=== PATIENT | male | born 1960 | race Caucasian/White ===

== ENCOUNTER 2017-01-18 20:23 | Emergency (ER) | payer MEDICARE, OTHER ==
[2017-01-18] MEDS ORDERED: SODIUM CHLORIDE 0.9% 1,000 ML with MVI, ADULT NO.4 WITH VIT K 10 ML, THIAMINE 100 MG, F... IV ONE ×4 (20:43)
[2017-01-18 21:08] LABS: Aty Lym Flag Marked; CH 33.6; CHCM 33.8; HCT 42.7 % (39.0-53.0); HDW 2.25; MCH 32.7 pg (25.0-35.0); MCHC 32.8 g/dL (31.0-37.0); MCV 99.6 fL (80.0-100.0); Mean Platelet Volume 6.8; RBC 4.29 m/uL (4.30-5.90); RDW 12.8 % (11.5-15.5); WBC (Perox) 4.99
[2017-01-18 21:21] LABS: ALT 26 U/L (21-72); AST 24 U/L (17-59); Alkaline Phosphatase 70 U/L (38-126); Anion Gap 12 mmol/L; Blood Urea Nitrogen 13 mg/dL (9-20); Calcium 9.1 mg/dL (8.4-10.2); Carbon Dioxide 27 mmol/L (22-30); Chloride 106 mmol/L (98-107); Glucose 94 mg/dL (74-99); Magnesium 1.8 mg/dL (1.6-2.3); Non-African American GFR(MDRD) >60 (>60 ml/min/1.73 sqM); Potassium 3.5 mmol/L (3.5-5.1); Sodium 145 mmol/L (137-145); Total Bilirubin 0.8 mg/dL (0.2-1.3); Total Protein 7.2 g/dL (6.3-8.2)
[2017-01-18 21:36] LABS: Add Differential Manual Differential
--- NOTE | 2017-01-18 21:36 | ED ---
Psych HPI - General Chief Complaint: Psychiatric Symptoms Stated Complaint: Mental Health Time Seen by Provider: 01/18/17 20:28 Source: patient, RN notes reviewed Mode of arrival: ambulatory Limitations: no limitations - History of Present Illness Initial Comments: 57-year-old male presents emergency Department with police for psychiatric evaluation. Patient called the crisis line because he is depressed. Patient states she was admitted in October for depression suicidal thoughts at that time. Patient states that he does not want to get to that point. Patient states in the past she started about shooting himself or stab himself states he has not had any current thoughts that. Patient states he drinks alcohol on a regular basis. Patient denies any illicit drug use. Denies any physical complaints including abdominal pain, nausea, vomiting, chest pain or shortness breath. - Related Data Home Medications Medication Instructions Recorded Confirmed DULoxetine HCL [Cymbalta] 60 mg PO DAILY 10/25/16 10/25/16 Levothyroxine Sodium [Synthroid] 50 mcg PO DAILY 10/25/16 10/25/16 [place] Carbonate 600 mg PO QAM 10/25/16 10/25/16 Mirtazapine [Remeron] 15 mg PO HS 10/25/16 10/25/16 Previous Rx's Medication Instructions Recorded Disulfiram [Antabuse] 250 mg PO HS #30 tab 10/31/16 Nicotine 21Mg/24Hr Patch [Habitrol] 1 patch TRANSDERM DAILY #30 patch 10/31/16 Allergies Allergy/AdvReac Type Severity Reaction Status Date / Time ziprasidone HCl [From Geodon] Allergy Unknown Unknown Verified 01/18/17 20:37 ziprasidone mesylate AdvReac Unknown Verified 01/18/17 20:37 [From Maria Fernanda] Review of Systems ROS Statement: Those systems with pertinent positive or pertinent negative responses have been documented in the HPI. ROS Other: All systems not noted in ROS Statement are negative. Past Medical History Past Medical History: No Reported History Additional Past Medical History / Comment(s): alcohol abuse History of Any Multi-Drug Resistant Organisms: None Reported Past Surgical History: No Surgical Hx Reported Additional Past Surgical History / Comment(s): eyelid sx Past Anesthesia/Blood Transfusion Reactions: No Reported Reaction Past Psychological History: Bipolar Smoking Status: Heavy tobacco smoker Past Alcohol Use History: Daily, Heavy Additional Past Alcohol Use History / Comment(s): drinks 1/5 th daily Past Drug Use History: None Reported General Exam Limitations: no limitations General appearance: alert, in no apparent distress Head exam: Present: atraumatic, normocephalic, normal inspection Eye exam: Present: normal appearance, PERRL, EOMI. Absent: scleral icterus, conjunctival injection, periorbital swelling ENT exam: Present: normal exam, mucous membranes moist, TM's normal bilaterally Neck exam: Present: normal inspection, full ROM. Absent: tenderness, meningismus, lymphadenopathy Respiratory exam: Present: normal lung sounds bilaterally. Absent: respiratory distress, wheezes, rales, rhonchi, stridor Cardiovascular Exam: Present: regular rate, normal rhythm, normal heart sounds. Absent: systolic murmur, diastolic murmur, rubs, gallop, clicks GI/Abdominal exam: Present: soft, normal bowel sounds. Absent: distended, tenderness, guarding, rebound, rigid Neurological exam: Present: alert, oriented X3, CN II-XII intact Psychiatric exam: Present: depressed Skin exam: Present: warm, dry, intact, normal color. Absent: rash Course Vital Signs 01/18/17 01/19/17 20:32 02:20 Temperature 97.8 F 97.1 F L Pulse Rate 91 71 Respiratory 18 18 Rate Blood Pressure 121/59 108/68 O2 Sat by Pulse 98 98 Oximetry Medical Decision Making - Medical Decision Making Patient was evaluated by EPS. Patient will be discharged at this time. Patient is sober. - Lab Data Result diagrams: 01/18/17 20:54 01/18/17 20:54 Lab Results 01/18/17 01/18/17 01/18/17 Range/Units 20:54 20:54 20:54 WBC 5.0 (3.8-10.6) k/uL RBC 4.29 L (4.30-5.90) m/uL Hgb 14.0 (13.0-17.5) gm/dL Hct 42.7 (39.0-53.0) % MCV 99.6 (80.0-100.0) fL MCH 32.7 (25.0-35.0) pg MCHC 32.8 (31.0-37.0) g/dL RDW 12.8 (11.5-15.5) % Plt Count 247 (150-450) k/uL Neutrophils % (Manual) 46.0 % Lymphocytes % (Manual) 42.0 % Monocytes % (Manual) 10.0 % Eosinophils % (Manual) 2.0 % Neutrophils # (Manual) 2.3 (1.3-7.7) k/uL Lymphocytes # (Manual) 2.1 (1.0-4.8) k/uL Monocytes # (Manual) 0.5 (0-1.0) k/uL Eosinophils # (Manual) 0.1 (0-0.7) k/uL Nucleated RBCs 0 (0-0) /100 WBC Manual Slide Review Performed Large Platelets Present Polychromasia Present Sodium 145 (137-145) mmol/L Potassium 3.5 (3.5-5.1) mmol/L Chloride 106 (98-107) mmol/L Carbon Dioxide 27 (22-30) mmol/L Anion Gap 12 mmol/L BUN 13 (9-20) mg/dL Creatinine 0.79 (0.66-1.25) mg/dL Est GFR (MDRD) Af Amer >60 (>60 ml/min/1.73 sqM) Est GFR (MDRD) Non-Af >60 (>60 ml/min/1.73 sqM) Glucose 94 (74-99) mg/dL Calcium 9.1 (8.4-10.2) mg/dL Magnesium 1.8 (1.6-2.3) mg/dL Total Bilirubin 0.8 (0.2-1.3) mg/dL AST 24 (17-59) U/L ALT 26 (21-72) U/L Alkaline Phosphatase 70 (38-126) U/L Total Protein 7.2 (6.3-8.2) g/dL Albumin 4.2 (3.5-5.0) g/dL Lipase 303 H (23-300) U/L Urine Opiates Screen Not Detected (NotDetected) Ur Oxycodone Screen Not Detected (NotDetected) Urine Methadone Screen Not Detected (NotDetected) Ur Propoxyphene Screen Not Detected (NotDetected) Ur Barbiturates Screen Not Detected (NotDetected) U Tricyclic Antidepress Not Detected (NotDetected) Ur Phencyclidine Scrn Not Detected (NotDetected) Ur Amphetamines Screen Not Detected (NotDetected) U Methamphetamines Scrn Not Detected (NotDetected) U Benzodiazepines Scrn Not Detected (NotDetected) Urine Cocaine Screen Not Detected (NotDetected) U Marijuana (THC) Screen Not Detected (NotDetected) Disposition Clinical Impression: Alcohol intoxication, Depression Disposition: HOME SELF-CARE Condition: Stable Instructions: Alcohol Intoxication (ED) Additional Instructions: Please return to the Emergency Department if symptoms worsen or any other concerns. Time of Disposition: 04:19
[2017-01-18 21:39] LABS: Manual Review Performed; Nucleated Red Blood Cells 0 /100 WBC (0-0); Total Cells Counted 100
[2017-01-18 21:40] LABS: Large Platelets Present; Polychromasia Present
[2017-01-19 02:21] VITALS: PULSE 71; TEMP 97.1
[2017-01-19 04:29] VITALS: BP 104/60; RESP 16
== END 2017-01-19 04:29 | disposition home or self-care (01) ==
LOC: EC 20:23
DX: F31.9 Bipolar disorder, unspecified (principal); F10.129 Alcohol abuse with intoxication, unspecified; F17.200 Nicotine dependence, unspecified, uncomplicated; Z79.899 Other long term (current) drug therapy; Z88.8 Allergy status to other drugs, medicaments and biological substances
CPT/HCPCS: 82075; 36415; 80053; 83690; 83735; 85025; 80306; 99284; 96365; 96366 ×3; J3411

== ENCOUNTER 2017-02-25 16:29 | Emergency (ER) | payer MEDICARE, OTHER ==
[2017-02-25 16:41] VITALS: TEMP 96.8
[2017-02-25] MEDS ORDERED: THIAMINE 100 MG/ML 2 ML VIAL IVP STA (16:52)
[2017-02-25] MEDS ORDERED: SODIUM CHLORIDE 0.9% 1,000 ML IV ONE (16:54)
[2017-02-25] MEDS ORDERED: DEXTROSE 50%-WATER 50 ML SYRINGE IVP STA (16:57)
[2017-02-25 17:00] LABS: Glucose,Whole Blood 105 mg/dL (75-99)
--- NOTE | 2017-02-25 17:26 | ED ---
Altered Mental Status HPI - General Source: EMS Mode of arrival: EMS - History of Present Illness MD Complaint: altered mental status -: unknown Context: alcohol abuse <Arpit Evans - Last Filed: 02/25/17 18:31> <Semaj Corona - Last Filed: 02/26/17 02:15> - General Chief Complaint: Recheck/Abnormal Lab/Rx Stated Complaint: unresponsive Time Seen by Provider: 02/25/17 16:45 - History of Present Illness Initial Comments: This patient is a 57-year-old man brought by EMS to be evaluated after he was found apparently lying at the side of a public road. The patient is not cooperative with the history, he is not speaking with me, but he did speak with nurse's. (Arpit Evans) - Related Data Home Medications Medication Instructions Recorded Confirmed DULoxetine HCL [Cymbalta] 60 mg PO DAILY 10/25/16 02/25/17 Levothyroxine Sodium [Synthroid] 50 mcg PO DAILY 10/25/16 02/25/17 [place] Carbonate 600 mg PO QAM 10/25/16 02/25/17 Mirtazapine [Remeron] 15 mg PO HS 10/25/16 02/25/17 Allergies Allergy/AdvReac Type Severity Reaction Status Date / Time ziprasidone HCl [From Geodon] Allergy Unknown Unknown Verified 02/25/17 16:54 ziprasidone mesylate AdvReac Unknown Verified 02/25/17 16:54 [From Geodon] Review of Systems ROS Other: All systems not noted in ROS Statement are negative. Limitations: ROS unobtainable due to patients medical condition <Arpit Evasn - Last Filed: 02/25/17 18:31> ROS Other: All systems not noted in ROS Statement are negative. <Semaj Corona - Last Filed: 02/26/17 02:15> ROS Statement: Those systems with pertinent positive or pertinent negative responses have been documented in the HPI. Past Medical History Past Medical History: No Reported History Additional Past Medical History / Comment(s): alcohol abuse History of Any Multi-Drug Resistant Organisms: None Reported Past Surgical History: No Surgical Hx Reported Additional Past Surgical History / Comment(s): eyelid sx Past Anesthesia/Blood Transfusion Reactions: No Reported Reaction Past Psychological History: Bipolar Smoking Status: Heavy tobacco smoker Past Alcohol Use History: Daily, Heavy Additional Past Alcohol Use History / Comment(s): drinks 1/5 th daily Past Drug Use History: None Reported <Arpit Evans - Last Filed: 02/25/17 18:31> General Exam Limitations: altered mental status General appearance: alert, appears intoxicated Head exam: Present: atraumatic, normocephalic Eye exam: Present: normal appearance, PERRL, EOMI. Absent: scleral icterus, conjunctival injection ENT exam: Present: mucous membranes dry Neck exam: Present: full ROM Respiratory exam: Present: normal lung sounds bilaterally. Absent: respiratory distress, wheezes, rales, rhonchi, stridor, chest wall tenderness Cardiovascular Exam: Present: regular rate, normal rhythm, normal heart sounds. Absent: systolic murmur, diastolic murmur, rubs, gallop GI/Abdominal exam: Present: soft. Absent: distended, tenderness, guarding, rebound, mass Extremities exam: Present: normal inspection, normal capillary refill. Absent: pedal edema, calf tenderness Back exam: Present: normal inspection. Absent: CVA tenderness (R), CVA tenderness (L), vertebral tenderness Neurological exam: Present: alert. Absent: motor sensory deficit Skin exam: Present: warm, dry, intact, normal color. Absent: rash <Arpit Evans - Last Filed: 02/25/17 18:31> Medical Decision Making - Lab Data Result diagrams: 02/25/17 15:15 02/25/17 15:15 - EKG Data -: EKG Interpreted by [facility] EKG shows normal: sinus rhythm, axis (Normal), intervals (Normal), QRS complexes (Normal), ST-T waves (Normal) Rate: normal (Rate 82 bpm) Interpretation: normal EKG <Arpit Evans - Last Filed: 02/25/17 18:31> - Lab Data Result diagrams: 02/25/17 15:15 02/25/17 15:15 <Semaj Corona - Last Filed: 02/26/17 02:15> - Medical Decision Making EPS came down and evaluated the patient and the patient did contract for safety and they determined that the patient could go home. (Semaj Corona) - Lab Data Lab Results 02/25/17 02/25/17 02/25/17 Range/Units 15:15 15:15 16:56 WBC 8.6 (3.8-10.6) k/uL RBC 4.11 L (4.30-5.90) m/uL Hgb 14.2 (13.0-17.5) gm/dL Hct 42.7 (39.0-53.0) % MCV 104.0 H (80.0-100.0) fL MCH 34.7 (25.0-35.0) pg MCHC 33.3 (31.0-37.0) g/dL RDW 13.7 (11.5-15.5) % Plt Count 264 (150-450) k/uL Neutrophils % (Manual) 74.0 % Lymphocytes % (Manual) 17.0 % Monocytes % (Manual) 7.0 % Eosinophils % (Manual) 2.0 % Neutrophils # (Manual) 6.4 (1.3-7.7) k/uL Lymphocytes # (Manual) 1.5 (1.0-4.8) k/uL Monocytes # (Manual) 0.6 (0-1.0) k/uL Eosinophils # (Manual) 0.2 (0-0.7) k/uL Nucleated RBCs 0 (0-0) /100 WBC Polychromasia Present Macrocytosis Slight Sodium 143 (137-145) mmol/L Potassium 4.0 (3.5-5.1) mmol/L Chloride 107 (98-107) mmol/L Carbon Dioxide 24 (22-30) mmol/L Anion Gap 12 mmol/L BUN 15 (9-20) mg/dL Creatinine 0.79 (0.66-1.25) mg/dL Est GFR (MDRD) Af Amer >60 (>60 ml/min/1.73 sqM) Est GFR (MDRD) Non-Af >60 (>60 ml/min/1.73 sqM) Glucose 162 H (74-99) mg/dL POC Glucose (mg/dL) 105 H (75-99) mg/dL POC Glu Buckle Sorter ID Alpa High Calcium 8.6 (8.4-10.2) mg/dL Total Bilirubin 0.5 (0.2-1.3) mg/dL AST 29 (17-59) U/L ALT 34 (21-72) U/L Alkaline Phosphatase 95 (38-126) U/L Total Protein 6.7 (6.3-8.2) g/dL Albumin 3.9 (3.5-5.0) g/dL Urine Opiates Screen (NotDetected) Ur Oxycodone Screen (NotDetected) Urine Methadone Screen (NotDetected) Ur Propoxyphene Screen (NotDetected) Ur Barbiturates Screen (NotDetected) U Tricyclic Antidepress (NotDetected) Ur Phencyclidine Scrn (NotDetected) Ur Amphetamines Screen (NotDetected) U Methamphetamines Scrn (NotDetected) U Benzodiazepines Scrn (NotDetected) Urine Cocaine Screen (NotDetected) U Marijuana (THC) Screen (NotDetected) Serum Alcohol 242 mg/dL 02/25/17 02/25/17 02/25/17 Range/Units 17:48 19:21 19:46 WBC (3.8-10.6) k/uL RBC (4.30-5.90) m/uL Hgb (13.0-17.5) gm/dL Hct (39.0-53.0) % MCV (80.0-100.0) fL MCH (25.0-35.0) pg MCHC (31.0-37.0) g/dL RDW (11.5-15.5) % Plt Count (150-450) k/uL Neutrophils % (Manual) % Lymphocytes % (Manual) % Monocytes % (Manual) % Eosinophils % (Manual) % Neutrophils # (Manual) (1.3-7.7) k/uL Lymphocytes # (Manual) (1.0-4.8) k/uL Monocytes # (Manual) (0-1.0) k/uL Eosinophils # (Manual) (0-0.7) k/uL Nucleated RBCs (0-0) /100 WBC Polychromasia Macrocytosis Sodium (137-145) mmol/L Potassium (3.5-5.1) mmol/L Chloride (98-107) mmol/L Carbon Dioxide (22-30) mmol/L Anion Gap mmol/L BUN (9-20) mg/dL Creatinine (0.66-1.25) mg/dL Est GFR (MDRD) Af Amer (>60 ml/min/1.73 sqM) Est GFR (MDRD) Non-Af (>60 ml/min/1.73 sqM) Glucose (74-99) mg/dL POC Glucose (mg/dL) 114 H 81 (75-99) mg/dL POC Glu Buckle Sorter ID Alesha Stark, Alesha Calcium (8.4-10.2) mg/dL Total Bilirubin (0.2-1.3) mg/dL AST (17-59) U/L ALT (21-72) U/L Alkaline Phosphatase (38-126) U/L Total Protein (6.3-8.2) g/dL Albumin (3.5-5.0) g/dL Urine Opiates Screen Not Detected (NotDetected) Ur Oxycodone Screen Not Detected (NotDetected) Urine Methadone Screen Not Detected (NotDetected) Ur Propoxyphene Screen Not Detected (NotDetected) Ur Barbiturates Screen Not Detected (NotDetected) U Tricyclic Antidepress Not Detected (NotDetected) Ur Phencyclidine Scrn Not Detected (NotDetected) Ur Amphetamines Screen Not Detected (NotDetected) U Methamphetamines Scrn Not Detected (NotDetected) U Benzodiazepines Scrn Not Detected (NotDetected) Urine Cocaine Screen Not Detected (NotDetected) U Marijuana (THC) Screen Not Detected (NotDetected) Serum Alcohol mg/dL Disposition <Arpit Evans - Last Filed: 02/25/17 18:31> Time of Disposition: 02:14 <Semaj Corona - Last Filed: 02/26/17 02:15> Clinical Impression: Alcohol intoxication, Situational depression Disposition: HOME SELF-CARE Condition: Good Instructions: Depression (ED), Alcohol Intoxication (ED) Referrals: Deshaun Velazquez MD [Primary Care Provider] - 1-2 days
[2017-02-25 17:34] LABS: ALT 34 U/L (21-72); AST 29 U/L (17-59); Alkaline Phosphatase 95 U/L (38-126); Anion Gap 12 mmol/L; Blood Urea Nitrogen 15 mg/dL (9-20); Calcium 8.6 mg/dL (8.4-10.2); Carbon Dioxide 24 mmol/L (22-30); Chloride 107 mmol/L (98-107); Glucose 162 mg/dL (74-99); Non-African American GFR(MDRD) >60 (>60 ml/min/1.73 sqM); Sodium 143 mmol/L (137-145); Total Bilirubin 0.5 mg/dL (0.2-1.3); Total Protein 6.7 g/dL (6.3-8.2)
[2017-02-25 17:40] LABS: Aty Lym Flag Marked; CH 33.9; CHCM 32.7; HCT 42.7 % (39.0-53.0); HDW 2.33; HGB 14.2 gm/dL (13.0-17.5); MCH 34.7 pg (25.0-35.0); MCHC 33.3 g/dL (31.0-37.0); Macrocytosis Slight; RBC 4.11 m/uL (4.30-5.90); RDW 13.7 % (11.5-15.5); WBC 8.6 k/uL (3.8-10.6); WBC (Perox) 8.72
[2017-02-25 17:42] LABS: Alcohol 242 mg/dL
[2017-02-25 17:49] LABS: Glucose,Whole Blood 114 mg/dL (75-99)
--- NOTE | 2017-02-25 17:49 | CT ---
EXAMINATION TYPE: CT brain wo con DATE OF EXAM: 02/25/2017 5:39 PM HISTORY: Unresponsive, hypoglycemia. CT DLP: 1144.0 mGycm. Automated Exposure Control for Dose Reduction was Utilized. TECHNIQUE: CT scan of the head is performed without contrast. COMPARISON: CT brain April 21, 2011. FINDINGS: There is no acute intracranial hemorrhage or midline shift identified. Ventricles and sul ci are within normal limits in size. The globes are intact and the visualized sinuses are clear. S oft tissue density bilateral external auditory canals is felt to reflect cerumen and is similar to pr ior exam. IMPRESSION: No acute intracranial hemorrhage or midline shift. No significant change from prior.
[2017-02-25 17:54] LABS: Add Differential Manual Differential
[2017-02-25 17:55] LABS: Nucleated Red Blood Cells 0 /100 WBC (0-0); Polychromasia Present; Total Cells Counted 100
[2017-02-25 19:23] LABS: Glucose,Whole Blood 81 mg/dL (75-99)
[2017-02-26 02:29] VITALS: BP 106/55; PULSE 74; RESP 16
[2017-02-26 07:19] LABS: Glucose,Whole Blood 34 mg/dL (75-99)
== END 2017-02-26 02:29 | disposition home or self-care (01) ==
LOC: EC 16:29
DX: F43.21 Adjustment disorder with depressed mood (principal); F10.129 Alcohol abuse with intoxication, unspecified; F31.9 Bipolar disorder, unspecified; F17.200 Nicotine dependence, unspecified, uncomplicated; Z79.899 Other long term (current) drug therapy; Z88.8 Allergy status to other drugs, medicaments and biological substances
CPT/HCPCS: 99285; 96374; 96375; 96361 ×2; 36415; 93005; 80053; 85025; 80306; 80320; 70450; J3411; 99284

== ENCOUNTER 2018-01-31 21:37 | Emergency (ER) | payer MEDICARE, OTHER ==
[2018-01-31] MEDS ORDERED: SODIUM CHLORIDE 0.9% 1,000 ML IV ONE (22:21)
[2018-01-31 22:26] VITALS: RESP 18
[2018-01-31 22:35] LABS: Alcohol 197 mg/dL; Anion Gap 13 mmol/L; Blood Urea Nitrogen 13 mg/dL (9-20); Calcium 8.9 mg/dL (8.4-10.2); Carbon Dioxide 28 mmol/L (22-30); Chloride 106 mmol/L (98-107); Glucose 86 mg/dL (74-99); Potassium 3.8 mmol/L (3.5-5.1); Sodium 147 mmol/L (137-145)
[2018-01-31 22:46] LABS: HCT 41.5 % (39.0-53.0); HGB 13.9 gm/dL (13.0-17.5); MCH 34.1 pg (25.0-35.0); MCHC 33.5 g/dL (31.0-37.0); MCV 101.7 fL (80.0-100.0); Macrocytosis Slight; Mean Platelet Volume 7.4; Platelet Count 225 k/uL (150-450); RBC 4.08 m/uL (4.30-5.90); RDW 14.7 % (11.5-15.5); WBC 3.2 k/uL (3.8-10.6)
--- NOTE | 2018-01-31 22:51 | CT ---
EXAMINATION TYPE: CT brain erinn terrazas DATE OF EXAM: 01/31/2018 COMPARISON: NONE HISTORY: altered mental status CT DLP: 1184.3 mGycm Automated exposure control for dose reduction was used. TECHNIQUE: CT scan of the head and cervical spine are performed without contrast. FINDINGS: There is cerebral cortical atrophy. There is hypodensity in the white matter of both occi pital lobes. There is no mass effect nor midline shift. There is no sign of intracranial hemorrhage. The calvarium is intact. Cervical vertebra have normal alignment. There is some spurring of the endplates at C5-6 C6-7 and als o at C3-4. 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 The skull base is intact. There is no evide nce of a fracture. IMPRESSION: There is evidence of white matter ischemia in the occipital lobes that is new compared to old exam. N o acute intracranial abnormality. No hemorrhage. Spondylotic changes in the cervical spine without a significant progression compared to old exam. No fracture.
[2018-01-31 23:07] LABS: Band Neutrophils % 1 %; Lymphocytes # (M) 1.92 k/uL (1.0-4.8); Neutrophils % (M) 36 %; Nucleated Red Blood Cells 0 /100 WBC (0-0); Total Cells Counted 100
--- NOTE | 2018-02-01 04:56 | ED ---
Alcohol HPI - General Chief Complaint: Alcohol Stated Complaint: ETOH Time Seen by Provider: 01/31/18 21:51 Source: patient, EMS Mode of arrival: EMS Limitations: altered mental status - History of Present Illness MD Complaint: alcohol intoxication Last Drink: just [employer] Previous Visits for Alcohol Intoxication?: Yes Recent Trauma: No Associated Symptoms: denies other symptoms Chronic Alcohol Use: Yes - Related Data Home Medications Medication Instructions Recorded Confirmed Levothyroxine Sodium [Synthroid] 50 mcg PO DIRECTED 10/25/16 10/11/17 Naltrexone Microspheres [Vivitrol] 380 mg IM DIRECTED 10/11/17 10/11/17 Omeprazole [PriLOSEC] 20 mg PO DIRECTED 10/11/17 10/11/17 DULoxetine HCL [Cymbalta] 60 mg PO DIRECTED 01/31/18 Diphenox-Atrop 2.5-0.025 mg 1 tab PO QID PRN 01/31/18 01/31/18 [Lomotil] [place] Carbonate 600 mg PO DIRECTED 01/31/18 Allergies Allergy/AdvReac Type Severity Reaction Status Date / Time ziprasidone HCl [From Geodon] Allergy Unknown Unknown Verified 01/31/18 22:06 ziprasidone mesylate AdvReac Unknown Verified 01/31/18 22:06 [From Geodon] Review of Systems ROS Statement: Those systems with pertinent positive or pertinent negative responses have been documented in the HPI. ROS Other: All systems not noted in ROS Statement are negative. Constitutional: Denies: fever Eyes: Denies: vision change Respiratory: Denies: cough, dyspnea Cardiovascular: Denies: chest pain, edema, syncope Gastrointestinal: Reports: nausea. Denies: vomiting, diarrhea Genitourinary: Denies: dysuria, hematuria Musculoskeletal: Denies: back pain Skin: Denies: rash Neurological: Denies: headache, weakness, numbness Psychiatric: Reports: anxiety. Denies: homicidal thoughts, suicidal thoughts Past Medical History Past Medical History: Seizure Disorder Additional Past Medical History / Comment(s): alcohol abuse History of Any Multi-Drug Resistant Organisms: None Reported Past Surgical History: No Surgical Hx Reported Additional Past Surgical History / Comment(s): eyelid sx Past Anesthesia/Blood Transfusion Reactions: No Reported Reaction Past Psychological History: Bipolar Smoking Status: Heavy tobacco smoker Past Alcohol Use History: Abuse, Daily, Heavy Past Drug Use History: None Reported General Exam Limitations: altered mental status General appearance: alert, in no apparent distress, appears intoxicated Head exam: Present: atraumatic, normocephalic Eye exam: Present: normal appearance, nystagmus. Absent: scleral icterus, conjunctival injection Neck exam: Present: normal inspection. Absent: tenderness Respiratory exam: Present: normal lung sounds bilaterally. Absent: respiratory distress, wheezes, rales, rhonchi, stridor Cardiovascular Exam: Present: regular rate, normal rhythm, normal heart sounds GI/Abdominal exam: Present: soft. Absent: distended, tenderness, guarding Extremities exam: Present: normal inspection, normal capillary refill. Absent: pedal edema, calf tenderness Back exam: Present: normal inspection. Absent: CVA tenderness (R), CVA tenderness (L) Neurological exam: Present: alert Skin exam: Present: warm, dry, intact, normal color. Absent: rash Course Vital Signs 01/31/18 01/31/18 02/01/18 21:41 22:15 04:57 Temperature 97.3 F L 97.9 F Pulse Rate 79 105 H 85 Respiratory 16 18 18 Rate Blood Pressure 114/70 93/56 102/65 O2 Sat by Pulse 95 94 L 97 Oximetry Medical Decision Making - Lab Data Result diagrams: 01/31/18 21:57 01/31/18 21:57 Lab Results 01/31/18 01/31/18 Range/Units 21:57 21:57 WBC 3.2 L (3.8-10.6) k/uL RBC 4.08 L (4.30-5.90) m/uL Hgb 13.9 (13.0-17.5) gm/dL Hct 41.5 (39.0-53.0) % MCV 101.7 H (80.0-100.0) fL MCH 34.1 (25.0-35.0) pg MCHC 33.5 (31.0-37.0) g/dL RDW 14.7 (11.5-15.5) % Plt Count 225 (150-450) k/uL Neutrophils % (Manual) 36 % Band Neutrophils % 1 % Lymphocytes % (Manual) 60 % Eosinophils % (Manual) 3 % Neutrophils # (Manual) 1.10 L (1.3-7.7) k/uL Lymphocytes # (Manual) 1.92 (1.0-4.8) k/uL Eosinophils # (Manual) 0.10 (0-0.7) k/uL Nucleated RBCs 0 (0-0) /100 WBC Manual Slide Review Performed Macrocytosis Slight Sodium 147 H (137-145) mmol/L Potassium 3.8 (3.5-5.1) mmol/L Chloride 106 (98-107) mmol/L Carbon Dioxide 28 (22-30) mmol/L Anion Gap 13 mmol/L BUN 13 (9-20) mg/dL Creatinine 0.95 (0.66-1.25) mg/dL Est GFR (CKD-EPI)AfAm >90 (>60 ml/min/1.73 sqM) Est GFR (CKD-EPI)NonAf 87 (>60 ml/min/1.73 sqM) Glucose 86 (74-99) mg/dL Calcium 8.9 (8.4-10.2) mg/dL Serum Alcohol 197 mg/dL Disposition Clinical Impression: Alcoholic intoxication Disposition: HOME SELF-CARE Condition: Fair Instructions: Alcohol Intoxication (ED) Referrals: Deshaun Velazquez MD [Primary Care Provider] - 1-2 days
[2018-02-01 04:57] VITALS: BP 102/65; PULSE 85; TEMP 97.9
--- NOTE | 2018-02-04 02:25 | CDI ---
Documentation Clarification OP Dear Arpit GAMA MD Please do addendum to ED report for HPI , Physical exam and MDM. Thank you, Hayde Lr [employer] System Administrator If you have any question, Please contact internet project manager at [phone] [facility]
== END 2018-02-01 05:19 | disposition home or self-care (01) ==
LOC: EC 21:37
DX: F10.129 Alcohol abuse with intoxication, unspecified (principal); F31.9 Bipolar disorder, unspecified; F17.200 Nicotine dependence, unspecified, uncomplicated; Z79.891 Long term (current) use of opiate analgesic; Z79.899 Other long term (current) drug therapy; Z88.8 Allergy status to other drugs, medicaments and biological substances
CPT/HCPCS: 36415; 70450; 72125; 80048; 80320; 85025; 96360; 99285

== ENCOUNTER 2019-03-21 15:58 | Inpatient (IN) | payer MEDICARE, OTHER ==
[2019-03-21] MEDS ORDERED: FOLIC ACID 1 MG TAB PO STA (16:11)
[2019-03-21] MEDS ORDERED: THIAMINE 100 MG/ML 2 ML VIAL IM STA (16:11)
[2019-03-21] MEDS ORDERED: SODIUM CHLORIDE 0.9% 500 ML 500 ML IV STA (16:11)
--- NOTE | 2019-03-21 16:55 | ED ---
Alcohol HPI - General Chief Complaint: Alcohol Stated Complaint: ETOH Time Seen by Provider: 03/21/19 16:11 Source: patient Mode of arrival: ambulatory Limitations: no limitations - History of Present Illness Initial Comments: 59-year-old male presenting for a clinical intoxication brought in by [facility]. Patient was found sitting the grass drinking vodka. Patient states he is a daily drinker. Patient denies any falls. He states he does have suicidal thoughts denies homicidal ideation. Patient has no current complaints, patient denies any recent fever, chills, shortness of breath, chest pain, back pain, abdominal pain, nausea or vomiting, numbness or tingling, dysuria or hematuria, constipation or diarrhea, headaches, or any other complaints. Patient states he does have history of glaucoma and has not taken his medications for his left eye in 6 months. He states for about that same time he has had no vision in his left eye. - Related Data Home Medications Medication Instructions Recorded Confirmed Levothyroxine Sodium [Synthroid] 50 mcg PO DIRECTED 10/25/16 10/11/17 Naltrexone Microspheres [Vivitrol] 380 mg IM DIRECTED 10/11/17 10/11/17 Omeprazole [PriLOSEC] 20 mg PO DIRECTED 10/11/17 10/11/17 DULoxetine HCL [Cymbalta] 60 mg PO DIRECTED 01/31/18 Diphenox-Atrop 2.5-0.025 mg 1 tab PO QID PRN 01/31/18 01/31/18 [Lomotil] [place] Carbonate 600 mg PO DIRECTED 01/31/18 Allergies Allergy/AdvReac Type Severity Reaction Status Date / Time ziprasidone HCl [From Geodon] Allergy Unknown Unknown Verified 01/31/18 22:06 ziprasidone mesylate AdvReac Unknown Verified 01/31/18 22:06 [From [place]] Review of Systems ROS Statement: Those systems with pertinent positive or pertinent negative responses have been documented in the HPI. ROS Other: All systems not noted in ROS Statement are negative. Past Medical History Past Medical History: Seizure Disorder Additional Past Medical History / Comment(s): alcohol abuse History of Any Multi-Drug Resistant Organisms: None Reported Past Surgical History: No Surgical Hx Reported Additional Past Surgical History / Comment(s): eyelid sx Past Anesthesia/Blood Transfusion Reactions: No Reported Reaction Past Psychological History: Bipolar Smoking Status: Heavy tobacco smoker Past Alcohol Use History: Abuse, Daily, Heavy Past Drug Use History: None Reported General Exam - General Exam Comments Initial Comments: General: The patient is awake and alert, in no distress, and does not appear acutely ill. Eye: Conjunctiva of the left eye red, pupil mid fixed, steamy this is gross exam, pt refuses full eye examination, no noticed nystagmus Ears, nose, mouth and throat: There are moist mucous membranes and no oral lesions. Neck: The neck is supple, there is no tenderness or JVD. Cardiovascular: There is a regular rate and rhythm. No murmur, rub or gallop is appreciated. Respiratory: Lungs are clear to auscultation, respirations are non-labored, breath sounds are equal. No wheezes, stridor, rales, or rhonchi. Gastrointestinal: Soft, non-distended, non-tender abdomen without masses or organomegaly noted. There is no rebound or guarding present. No CVA tenderness. Bowel sounds are unremarkable. Musculoskeletal: Normal ROM, no tenderness. Strength 5/5. Sensation intact. Radial pulses equal bilaterally 2+. Neurological: A&O x 3. CN II-XII intact, There are no obvious motor or sensory deficits. Coordination appears grossly intact. Speech is normal. Skin: Skin is warm and dry and no rashes or lesions are noted. Psychiatric: Refuses eye exam, tells me to buzz off Limitations: no limitations Course Vital Signs 03/21/19 03/21/19 03/21/19 16:08 19:15 20:20 Temperature 98.8 F 98.5 F Pulse Rate 96 79 80 Respiratory 18 17 18 Rate Blood Pressure 104/79 88/56 102/71 O2 Sat by Pulse 98 98 98 Oximetry 03/21/19 03/21/19 20:53 22:39 Temperature Pulse Rate 81 86 Respiratory 18 18 Rate Blood Pressure 115/73 102/63 O2 Sat by Pulse 98 90 L Oximetry Medical Decision Making - Medical Decision Making Intoxicated 59-year-old male presenting for intoxication. Patient brought in by [place] [employer]. Patient appears well. There is no nystagmus or tremors. Patient does not appear to be withdrawing patient is intoxicated. Patient placed on CISC protocols. Patient requesting HIV testing. Patient states he is suicidal denies any specific plan. Patient denies homicidal ideation. Patient laboratory studies reveal anemia. He was given thiamine and folic acid, IV hydration. Patient refuses full examination of the eyes, I did do a complete physical examination however when I asked to assess the left eye further which he states he has had glaucoma of with no vision for the past 6 months he states he has not been able to take his eye drops. He tells me to "buzz off", refusing pressures. It appears steamy, mid fixed. COncern for increased IOP. Patient will be admitted for intoxication. Ophthalmology will be on consult. Psychiatric services will be consult. Discussed the case attending provider Dr. Taylor at this time we feel patient should be admitted given level of intoxication as well as for ophthalmology consultation and psychiatric evaluation. No further orders at this time patient admission was a ccepted by Dr. Velazquez. pt transferred to the floor appearing well. - Lab Data Result diagrams: 03/21/19 19:59 03/21/19 16:37 Lab Results 03/21/19 03/21/19 03/21/19 Range/Units 16:37 17:10 19:59 WBC 3.2 L (3.8-10.6) k/uL RBC 3.14 L (4.30-5.90) m/uL Hgb 11.5 L (13.0-17.5) gm/dL Hct 34.8 L (39.0-53.0) % MCV 110.8 H (80.0-100.0) fL MCH 36.5 H (25.0-35.0) pg MCHC 33.0 (31.0-37.0) g/dL RDW 14.4 (11.5-15.5) % Plt Count 131 L (150-450) k/uL Neutrophils % (Manual) 39 % Band Neutrophils % 2 % Lymphocytes % (Manual) 40 % Monocytes % (Manual) 15 % Eosinophils % (Manual) 4 % Neutrophils # (Manual) 1.30 (1.3-7.7) k/uL Lymphocytes # (Manual) 1.28 (1.0-4.8) k/uL Monocytes # (Manual) 0.48 (0-1.0) k/uL Eosinophils # (Manual) 0.13 (0-0.7) k/uL Nucleated RBCs 0 (0-0) /100 WBC Manual Slide Review Performed Polychromasia Present Poikilocytosis (manual Present Anisocytosis (manual) Present Macrocytosis Marked A Target Cells Present PT 10.2 (9.0-12.0) sec INR 0.9 (<1.2) Sodium 140 (137-145) mmol/L Potassium (3.5-5.1) mmol/L Chloride 103 (98-107) mmol/L Carbon Dioxide 25 (22-30) mmol/L Anion Gap 12 mmol/L BUN 14 (9-20) mg/dL Creatinine 0.61 L (0.66-1.25) mg/dL Est GFR (CKD-EPI)AfAm >90 (>60 ml/min/1.73 sqM) Est GFR (CKD-EPI)NonAf >90 (>60 ml/min/1.73 sqM) Glucose 86 (74-99) mg/dL Calcium 9.2 (8.4-10.2) mg/dL Phosphorus 3.4 (2.5-4.5) mg/dL Magnesium 1.6 (1.6-2.3) mg/dL Total Bilirubin 0.6 (0.2-1.3) mg/dL AST 124 H (17-59) U/L ALT 64 (21-72) U/L Alkaline Phosphatase 81 (38-126) U/L Total Protein 7.3 (6.3-8.2) g/dL Albumin 4.2 (3.5-5.0) g/dL Amylase 133 H (30-110) U/L Lipase 600 H (23-300) U/L Serum Alcohol 274 H* mg/dL Disposition Clinical Impression: Alcohol intoxication, Suicidal thoughts, History of chronic angle-closure glaucoma Disposition: ADMITTED IP TO THIS HOSP Condition: Stable Is patient prescribed a controlled substance at d/c from ED?: No Time of Disposition: 21:41 Decision to Admit Reason: Admit from EC Decision Date: 03/21/19 Decision Time: 21:41
[2019-03-21 17:17] LABS: ALT 64 U/L (21-72); AST 124 U/L (17-59); Albumin 4.2 g/dL (3.5-5.0); Alkaline Phosphatase 81 U/L (38-126); Amylase 133 U/L (30-110); Anion Gap 12 mmol/L; Blood Urea Nitrogen 14 mg/dL (9-20); Calcium 9.2 mg/dL (8.4-10.2); Carbon Dioxide 25 mmol/L (22-30); Chloride 103 mmol/L (98-107); Glucose 86 mg/dL (74-99); Lipase 600 U/L (23-300); Magnesium 1.6 mg/dL (1.6-2.3); Phosphorus 3.4 mg/dL (2.5-4.5); Sodium 140 mmol/L (137-145); Total Bilirubin 0.6 mg/dL (0.2-1.3); Total Protein 7.3 g/dL (6.3-8.2)
[2019-03-21 17:21] LABS: Alcohol 274 mg/dL
[2019-03-21 17:32] LABS: INR 0.9 (<1.2); Prothrombin Time 10.2 sec (9.0-12.0)
[2019-03-21] MEDS ORDERED: LORazepam 2 MG/ML INJ IV PRN ×2 (18:21)
[2019-03-21] MEDS: THIAMINE 100 MG TAB PO SCH (18:44)
[2019-03-21] MEDS ORDERED: SODIUM CHLORIDE 0.9% 1,000 ML IV ONE (19:24)
[2019-03-21] MEDS ORDERED: SODIUM CHLORIDE 0.9% 500 ML 500 ML IV ONE ×2 (19:24→22:50)
[2019-03-21 20:07] LABS: HCT 34.8 % (39.0-53.0); HGB 11.5 gm/dL (13.0-17.5); MCH 36.5 pg (25.0-35.0); MCV 110.8 fL (80.0-100.0); Macrocytosis Marked; Mean Platelet Volume 8.5; Platelet Count 131 k/uL (150-450); RBC 3.14 m/uL (4.30-5.90); RDW 14.4 % (11.5-15.5); WBC 3.2 k/uL (3.8-10.6)
[2019-03-21 20:54] LABS: Anisocytosis (M) Present; Band Neutrophils % 2 %; Eosinophils # (M) 0.13 k/uL (0-0.7); Lymphocytes # (M) 1.28 k/uL (1.0-4.8); Monocytes # (M) 0.48 k/uL (0-1.0); Neutrophils % (M) 39 %; Nucleated Red Blood Cells 0 /100 WBC (0-0); Total Cells Counted 100
[2019-03-21 20:55] LABS: Polychromasia Present; Target Cells Present
[2019-03-21 21:03] LABS: Poikilocytosis (M) Present
[2019-03-21] MEDS ORDERED: NALOXONE 0.4 MG/ML 1 ML VIAL IV PRN (21:37)
[2019-03-21 23:01] LABS: Appearance,Urine Clear (Clear); Bilirubin,Urine Negative (Negative); Blood,Urine Negative (Negative); Color,Urine Yellow; Glucose,Urine (UA) Negative (Negative); Ketones,Urine Negative (Negative); Leukocyte Esterase,Urine Negative (Negative); Nitrite,Urine Negative (Negative); Protein,Urine Negative (Negative); Specific Gravity,Urine 1.015 (1.001-1.035); Urobilinogen,Urine <2.0 mg/dL (<2.0)
[2019-03-21 23:15] LABS: Amphetamine Screen,Urine Not Detected (NotDetected); Barbiturate Screen,Urine Not Detected (NotDetected); Benzodiazepines Screen,Urine Not Detected (NotDetected); Cocaine Screen,Urine Not Detected (NotDetected); Methadone Screen, Urine Not Detected (NotDetected); Opiate Screen,Urine Not Detected (NotDetected); Oxycodone Screen, Urine Not Detected (NotDetected); Phencyclidine Screen,Urine Not Detected (NotDetected); Tricyclic Antidepressant,Urine Not Detected (NotDetected); Urn Cannabinoid Scrn Not Detected (NotDetected)
[2019-03-21] MEDS: SODIUM CHLORIDE 0.9% 1,000 ML IV SCH (23:36)
[2019-03-22] MEDS: SODIUM CHLORIDE 0.9% 1,000 ML IV SCH ×2 (07:50→18:03)
[2019-03-22] MEDS: LORazepam 2 MG/ML INJ IV PRN ×3 (07:50→15:29)
[2019-03-22] MEDS: THIAMINE 100 MG TAB PO SCH ×2 (07:50→18:02)
--- NOTE | 2019-03-22 14:06 | P.CN ---
Psychiatric Consult - . Consult:: 03/22/19 13:59 Identifying data: The patient is a 59-year-old male who was admitted to the hospital for acute alcohol intoxication suicidal thoughts and worsening of his glaucoma. History of present illness: The patient is well known to our psychiatric service. He does have an alcohol use disorder. He has been diagnosed with depression versus bipolar disorder. He states that he was intoxicated and the police found him and brought to the hospital. He states that 2 weeks ago he had suicidal thoughts but endorses no suicidal thoughts intent or plan currently. He appears to be suffering from untreated glaucoma affecting his left eye and he is awaiting an ophthalmology consult as well. He was previously participating in care with [facility] but states he has not seen them in over one year. He was previously treated with Cymbalta and lithium to states he has not taken those medications in over a year. He states that he does not want decide to resume those yet but will give a consideration. He has been on the naltrexone injection in the past for his alcohol use disorder but does not recall if it was effective. He presented to the hospital with an alcohol level of 274. He is currently receiving Ativan as part of the [facility] protocol. Past psychiatric history: The patient has had numerous inpatient psychiatric hospitalizations over the years, he has worked with [facility] in the past. He has had suicide attempts in the past via overdoses. He has been treated in the past Cymbalta, lithium, Seroquel, Abilify, Wellbutrin XL, trazodone Past medical history hypothyroidism, chronic back pain ALLERGIES: Geodon [employer] 10 to history: The patient drinks alcohol a daily basis he states he can consume up to half a gallon he has been in rehab in the past most recent at [facility] Social history the patient is 59 years old he is single he lives alone in what he calls a rented garage space. He is unemployed and on a disability income. Mental status exam: The patient is a 59-year-old male appearing older than his stated age she is dressed in hospital gowns he has impaired hygiene grooming fingernails are long and dirty. Eye contact is intermittent. He continues eating his lunch during our conversation. He reports a recently depressed mood but states he has no acute suicidal ideation intent or plan. He states he does not feel hopeless. He is reporting no homicidal ideation intent or plan. He reports no auditory or visual hallucinations or any specific delusions. He does appear to be affected by either the alcohol withdrawal or with Ativan as he demonstrates some cognitive slowing. He demonstrates no verbal or physical aggressiveness. He demonstrates psychomotor slowing overall. Insight and judgment limited. Impressions 1. Delirium mild, major depressive disorder versus bipolar depression, alcohol use disorder Plan: The patient does not wish to restart his medications at this time. It does appear that there is some mild element of delirium affecting his mental status exam today. 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 Continue CIWA protocol as ordered.
[2019-03-22 19:41] LABS: Lithium <0.2 mmol/L
[2019-03-22 20:02] LABS: T4, Free (Free Thyroxine) 0.84 ng/dL (0.78-2.19)
--- NOTE | 2019-03-22 20:17 | HP ---
HISTORY AND PHYSICAL CHIEF COMPLAINT: Acute alcohol intoxication and depression with suicidal expression. HISTORY OF PRESENT ILLNESS: This is another admission for this 59-year-old male who is transvestite. He has problems with extreme depression and also has binge alcohol drinking. He was brought to the emergency room intoxicated and talking about killing himself. REVIEW OF SYSTEMS: Not obtainable at this time. He is very lethargic. Past medical history, family history, personal and social histories are otherwise unremarkable. PHYSICAL EXAMINATION: Blood pressure 123/78 with a pulse of 88, respirations of 32. He is afebrile. In general, he appeared to be lethargic, but in no acute distress. Hydration and nutrition were adequate. Head, ears, eyes, nose, mouth, and throat were normal. Neck veins were not distended as well as could be examined. Chest demonstrated occasional rales. Cardiac exam demonstrated sinus tachycardia and the abdomen seems soft without masses. Extremities: Normal. Neurologically, he is lethargic, but seemed to be grossly intact. He did have a conjunctivitis on the left. IMPRESSION: 1. Acute alcohol intoxication. 2. Major depression with suicidal thought. 3. Conjunctivitis, OS. PLAN: 1. Bed rest. 2. IV fluids. 3. CIWA protocol. 4. Psych consult. 5. Tobrex drops for left eye. MMODL / IJN: [id number] /
--- NOTE | 2019-03-22 20:17 | PN ---
PROGRESS NOTE DATE OF SERVICE: 03/22/2019 CHIEF COMPLAINT: Acute alcohol intoxication. HISTORY OF PRESENT ILLNESS: This gentleman is lethargic. He just received a dose of Ativan. He has been seen by Psychiatry. PHYSICAL EXAM: He has purulent conjunctivitis on the left. Chest is clear. Cardiac exam is normal. Abdomen is soft, nontender. He is not tremulous. IMPRESSION: 1. Acute alcohol intoxication. 2. Chronic alcoholism. 3. Major depression. 4. Suicidal personality. 5. Conjunctivitis, OS. PLAN: No change in program. MMODL / IJN: [id number] /
[2019-03-22] MEDS: TOBRAMYCIN 0.3% OPHTH DROPS 5 ML BTL LEFT EYE SCH (20:32)
[2019-03-23] MEDS: TOBRAMYCIN 0.3% OPHTH DROPS 5 ML BTL LEFT EYE SCH ×5 (00:15→23:56)
[2019-03-23] MEDS: SODIUM CHLORIDE 0.9% 1,000 ML IV SCH ×3 (04:46→17:44)
[2019-03-23] MEDS: LORazepam 2 MG/ML INJ IV PRN ×2 (07:05→13:00)
[2019-03-23] MEDS: THIAMINE 100 MG TAB PO SCH ×2 (07:06→17:44)
--- NOTE | 2019-03-23 12:49 | PN ---
PROGRESS NOTE CHIEF COMPLAINT: Acute alcohol intoxication. HISTORY OF PRESENT ILLNESS: This gentleman is becoming more awake and alert. He is not tremulous. He is depressed. Left eye is still concerning. He has a purulent discharge and there is hyperemia of the sclera. PHYSICAL EXAM: Chest is clear. Cardiac exam is normal. Abdomen is soft, nontender. Left eye is inflamed and still has a purulent discharge. IMPRESSION: 1. Acute alcohol intoxication. 2. Chronic alcoholism. 3. Major depression. 4. Conjunctivitis, left eye. 5. Glaucoma of the left eye. PLAN: Ophthalmology will assess the eye and in the meantime, he will be stabilized and then may be moved to the psych unit. MMODL / IJN: [id number] /
--- NOTE | 2019-03-23 14:36 | P.CN ---
Psychiatric Consult - . Consult date: 03/23/19 Consult:: 03/23/19 14:31 Suicidal Assessment and Plan (1) Bipolar I disorder with depression Narrative/Plan: 59-year-old male presenting for a clinical intoxication brought in by [facility]. Patient was found sitting the grass drinking vodka. Patient states he is a daily drinker. Patient denies any falls. He states he does have suicidal thoughts denies homicidal ideation. Patient has no current complaints, patient denies any recent fever, chills, shortness of breath, chest pain, back pain, abdominal pain, nausea or vomiting, numbness or tingling, dysuria or hematuria, constipation or diarrhea, headaches, or any other complaints. Patient states he does have history of glaucoma and has not taken his medications for his left eye in 6 months. He states for about that same time he has had no vision in his left eye. - Related Data Home Medications Medication Instructions Recorded Confirmed Levothyroxine Sodium [Synthroid] 50 mcg PO DIRECTED 10/25/16 10/11/17 Naltrexone Microspheres [Vivitrol] 380 mg IM DIRECTED 10/11/17 10/11/17 Omeprazole [PriLOSEC] 20 mg PO DIRECTED 10/11/17 10/11/17 DULoxetine HCL [Cymbalta] 60 mg PO DIRECTED 01/31/18 Diphenox-Atrop 2.5-0.025 mg 1 tab PO QID PRN 01/31/18 01/31/18 [Lomotil] [place] Carbonate 600 mg PO DIRECTED 01/31/18 Allergies Allergy/AdvReac Type Severity Reaction Status Date / Time ziprasidone HCl [From Geodon] Allergy Unknown Unknown Verified 01/31/18 22:06 ziprasidone mesylate AdvReac Unknown Verified 01/31/18 22:06 [From Geodon] Mental status examination: The patient presents alert, pleasant, and cooperative. There calmly seated without any agitated behavior. [He] reports that [his] mood is good. Affect is congruent and euthymic. [He] deny having any suicidal or homicidal ideation intent or plan. [He] denies any auditory or visual hallucinations. There is no evidence of any delusional thought content. [His] thought process is linear and goal-directed. [His] speech is fluent and nonpressured. [His] memory and concentration is grossly intact for the purposes of this session. Psychiatric impression: Alcohol use disorder severe; bipolar disorder stable Psychiatric recommendations: Discharge when medically stabilized and is not a candidate for 3 [facility] Jazlynpato [place]; kenya sood Thank you for the consult Mario Angulo D.O. PhD Current Visit: No Status: Acute Priority: Low Code(s): F31.9 - BIPOLAR DISORDER, UNSPECIFIED SNOMED Code(s): 16703189 (2) Alcohol use disorder, severe, dependence Current Visit: No Status: Chronic Priority: High Code(s): F10.20 - ALCOHOL DEPENDENCE, UNCOMPLICATED SNOMED Code(s): 514306814
[2019-03-23 14:48] LABS: HIV 1 AB Non-Reactive (Non-Reactive); HIV AB P24 Non-Reactive (Non-Reactive); HIV P24 AG Non-Reactive (Non-Reactive)
[2019-03-23] MEDS: NICOTINE 21MG/24HR PATCH TRANSDERM SCH (19:38)
[2019-03-24 03:39] VITALS: RESP 18
[2019-03-24] MEDS: TOBRAMYCIN 0.3% OPHTH DROPS 5 ML BTL LEFT EYE SCH (05:11)
[2019-03-24] MEDS: LORazepam 2 MG/ML INJ IV PRN (05:27)
[2019-03-24] MEDS: THIAMINE 100 MG TAB PO SCH (07:14)
[2019-03-24] MEDS: NICOTINE 21MG/24HR PATCH TRANSDERM SCH (07:14)
[2019-03-24 09:21] VITALS: BP 145/89; PULSE 78; TEMP 98.3
[2019-03-24] MEDS: SODIUM CHLORIDE 0.9% 1,000 ML IV SCH (09:42)
[2019-03-24] MEDS ORDERED: TRIFLURIDINE 1% OPHTH DROPS 7.5 ML BTL LEFT EYE SCH (12:00)
[2019-03-24] MEDS ORDERED: prednisoLONE ACETATE 1% OPHTH DROPS 5 ML BTL LEFT EYE SCH (13:00)
--- NOTE | 2019-03-24 17:03 | CONS ---
CONSULTATION DATE OF SERVICE: 03/24/2019 HISTORY: This is a 59-year-old white male with a history of alcoholism and bipolar disorder. The patient was presented to the hospital for clinical intoxication. He states that he is a daily drinker, and it is apparent that he is also a poor historian. I was asked to evaluate and treat for presumed history of glaucoma as well as chronic irritation in the left eye. The patient stated to me that he was seen and diagnosed with glaucoma by an regional truck driver at [facility]. He states that he was prescribed medication; however, after he ran out of his eye drops, he did not refill them and has not taken them in at least 6 months' time. The patient states that his left eye has been red for several months, and he is not sure how long that has been ongoing. Visual acuity measured 20/40 in the right eye and hand motion in the left eye. The pupils were equal and reactive to light. Extraocular movements were full in all gaze positions. On penlight exam, the lids exhibited significant ptosis, with the left being greater than the right. The right conjunctiva was quiet. The left exhibited 2+ injection throughout. Evaluation of the cornea revealed a significant infiltrate in the inferior mid periphery of the left eye. Peripheral neovascularization into this infiltrate had occurred as well. The inferior cornea as well as all stroma around this infiltrate appeared to be edematous as well. The right eye was quiet with no evidence of inflammation. Anterior chambers were both deep, and mild cataract changes were noted in both eyes. IMPRESSION: Chronic inflammation, left eye. 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 Evidence of corneal neovascularization is indicative of long-standing of this inflammatory process. Moving forward, I think we should discontinue use of topical antibiotics and instead begin antivirals consisting of Viroptic 1 drop 9 times a day and a topical steroid, Pred Forte, q.i.d. I will be happy to see this patient on followup, and I explained to him where my office was in the hopes that he would make an appearance there. MMODL / SANCHON: [id number] /
--- NOTE | 2019-03-24 22:12 | DS ---
DISCHARGE SUMMARY CHIEF COMPLAINT: Acute alcohol intoxication and depression. HISTORY OF PRESENT ILLNESS AND PHYSICAL EXAMINATION: Details of this man's history and physical can be found in the initial workup. COURSE IN THE HOSPITAL: After admission he was placed on bedrest, started on intravenous fluids and placed on CIWA protocol. He also had a sitter. He was seen by Psychiatry and not deemed to be a serious suicidal threat. As he became awake and alert, it was felt that he could be discharged on 03/24/2019. He will be discharged home and followed up in the office in several days. FINAL DIAGNOSES: 1. Acute alcohol intoxication. 2. Chronic alcoholism. 3. Major depression. 4. Conjunctivitis, left eye. 5. Glaucoma. OPERATIONS: None. CONSULTATIONS: Psychiatry. He is improved. REJI / NUHA: [id number] /
== END 2019-03-24 15:05 | disposition home or self-care (01) | DRG 897 ==
LOC: EC 15:58 → 4SSUR 21:33 → OBSVTOIN 03-23 15:17
PROVIDERS: ADMIT Family Medicine; ATTEND Family Medicine
DX: F10.221 Alcohol dependence with intoxication delirium (principal); F31.9 Bipolar disorder, unspecified; G40.909 Epilepsy, unspecified, not intractable, without status epilepticus; F17.200 Nicotine dependence, unspecified, uncomplicated; F64.1 Dual role transvestism; H10.9 Unspecified conjunctivitis; Z60.2 Problems related to living alone; R53.83 Other fatigue; H40.2290 Chronic angle-closure glaucoma, unspecified eye, stage unspecified; Z79.890 Hormone replacement therapy; Z88.8 Allergy status to other drugs, medicaments and biological substances
CPT/HCPCS: 36415; 80053; 80178; 80306; 80320; 81003; 82075; 82150; 83690; 83735; 84100; 84439; 85025; 85610; 87390; 96360; 96361; 96372; 99284

== ENCOUNTER 2019-06-08 12:42 | Emergency (ER) | payer MEDICARE, OTHER ==
--- NOTE | 2019-06-08 13:05 | ED ---
General Adult HPI - General Stated complaint: ETOH Time Seen by Provider: 06/08/19 12:47 Source: patient, RN notes reviewed Mode of arrival: EMS Limitations: no limitations - History of Present Illness Initial comments: Patient is a pleasant 59-year-old male presenting to the emergency Department with reported alcohol intoxication. Patient admits to drinking a lot of vodka. Patient states he was sleeping on the side of the road and therefore EMS brought him here. Patient denies any injuries. Patient states she does have chronic left eye problems however does not take his drops. Patient states he has no vision out of his left eye. Patient states this has been occurring for between 6 months and a year. Patient has no complaints at this time and does not want in emergency department. - Related Data Home Medications Medication Instructions Recorded Confirmed Levothyroxine Sodium [Synthroid] 50 mcg PO DAILY 10/25/16 06/08/19 Ergocalciferol [Vitamin D2] 50,000 unit PO Q7D 06/08/19 06/08/19 Allergies Allergy/AdvReac Type Severity Reaction Status Date / Time ziprasidone HCl [From Geodon] AdvReac Unknown Pt states Verified 06/08/19 14:18 geodon over sedates him. ziprasidone mesylate AdvReac Pt. states Verified 06/08/19 14:18 [From Geodon] Geodon makes him excessively sedated Review of Systems ROS Statement: Those systems with pertinent positive or pertinent negative responses have been documented in the HPI. ROS Other: All systems not noted in ROS Statement are negative. Constitutional: Denies: fever Eyes: Reports: vision change (Chronic). Denies: eye pain ENT: Denies: ear pain Respiratory: Denies: cough Cardiovascular: Denies: chest pain Endocrine: Denies: fatigue Gastrointestinal: Denies: abdominal pain Genitourinary: Denies: dysuria Musculoskeletal: Denies: back pain Skin: Denies: rash Neurological: Denies: headache, weakness, confusion Psychiatric: Denies: suicidal thoughts Past Medical History Past Medical History: Seizure Disorder Additional Past Medical History / Comment(s): alcohol abuse History of Any Multi-Drug Resistant Organisms: None Reported Past Surgical History: No Surgical Hx Reported Additional Past Surgical History / Comment(s): eyelid sx Past Anesthesia/Blood Transfusion Reactions: No Reported Reaction Past Psychological History: Bipolar Smoking Status: Heavy tobacco smoker Past Alcohol Use History: Abuse, Daily, Heavy Additional Past Alcohol Use History / Comment(s): drinks 1/5 th daily Past Drug Use History: None Reported - Past Family History Father Family Medical History: No Reported History General Exam Limitations: no limitations General appearance: alert, in no apparent distress Head exam: Present: atraumatic Eye exam: Present: other (Left eye with injection and complete opacification) ENT exam: Present: normal oropharynx Neck exam: Present: normal inspection. Absent: tenderness Respiratory exam: Present: normal lung sounds bilaterally Cardiovascular Exam: Present: regular rate, normal rhythm GI/Abdominal exam: Present: soft. Absent: tenderness Extremities exam: Present: normal inspection, full ROM. Absent: tenderness Back exam: Present: normal inspection. Absent: vertebral tenderness Neurological exam: Present: alert, oriented X3. Absent: motor sensory deficit Expanded Neurological exam: Present: protecting the airway Patient oriented to: Present: person, place, time Speech: Present: fluid speech Motor strength exam: RUE: 5, LUE: 5, RLE: 5, LLE: 5 Eye Response: (4) open spontaneously Motor Response: (6) obeys commands Verbal Response: (5) oriented Psychiatric exam: Present: normal affect, normal mood Skin exam: Present: normal color Course Vital Signs 06/08/19 06/08/19 06/08/19 13:00 13:29 14:00 Temperature 97.6 F Pulse Rate 76 78 78 Respiratory 14 13 14 Rate Blood Pressure 105/68 97/65 95/68 O2 Sat by Pulse 97 98 98 Oximetry Medical Decision Making - Medical Decision Making Patient reevaluated and resting comfortably sitting up in bed. Patient was able to tolerate oral intake. Patient is able to ambulate without difficulty. Patient is alert and oriented 3. patient is requesting discharge. Disposition Clinical Impression: Alcohol intoxication Disposition: HOME SELF-CARE Condition: Stable Instructions (If sedation given, give patient instructions): Alcohol Intoxication (ED), Alcohol Withdrawal (ED) Additional Instructions: Discontinue alcohol use. Please follow-up with primary care physician in the next couple of days for recheck. Return for worsening symptoms or other concerns. Is patient prescribed a controlled substance at d/c from ED?: No Referrals: Deshaun Velazquez MD [Primary Care Provider] - 1-2 days Time of Disposition: 14:42
[2019-06-08] MEDS ORDERED: SODIUM CHLORIDE 0.9% 1,000 ML IV STA (14:30)
[2019-06-08 15:52] VITALS: RESP 13
[2019-06-08 17:25] VITALS: BP 110/68; PULSE 72; TEMP 97.8
== END 2019-06-08 17:21 | disposition home or self-care (01) ==
LOC: EC 12:42
DX: F10.129 Alcohol abuse with intoxication, unspecified (principal); H57.89 Other specified disorders of eye and adnexa; F17.200 Nicotine dependence, unspecified, uncomplicated; Z88.8 Allergy status to other drugs, medicaments and biological substances; Z79.890 Hormone replacement therapy; Z98.890 Other specified postprocedural states
CPT/HCPCS: 96360; 99284

== ENCOUNTER 2019-06-23 11:06 | Emergency (ER) | payer MEDICARE, OTHER ==
[2019-06-23 11:14] VITALS: RESP 18
--- NOTE | 2019-06-23 11:43 | ED ---
General Adult HPI - General Chief complaint: Alcohol Stated complaint: ETOH, mental health Time Seen by Provider: 06/23/19 11:06 Source: patient, RN notes reviewed Mode of arrival: ambulatory Limitations: no limitations - History of Present Illness Initial comments: This is a 59-year-old male who comes emergency heartbeat because he is drunk. Patient states he has no complaints he is not really sure why he came in but he knows he's been drinking too much lately. Patient states he has no headache he has no chest pain he has no difficulty breathing. Patient denies any recent fever chills or cough per patient denies abdominal pain patient denies nausea vomiting diarrhea. Patient states he feels like he is just taken up now it would like to be discharged home. Patient states homicidal or suicidal. Patient states he just thought he drank too much and needed to be seen but now he doesn't have any complaints and wants to be discharged to go back to drinking. - Related Data Home Medications Medication Instructions Recorded Confirmed Levothyroxine Sodium [Synthroid] 50 mcg PO DAILY 10/25/16 06/23/19 Ergocalciferol [Vitamin D2] 50,000 unit PO Q7D 06/08/19 06/23/19 Allergies Allergy/AdvReac Type Severity Reaction Status Date / Time ziprasidone HCl [From Geodon] AdvReac Unknown Pt states Verified 06/23/19 11:29 geodon over sedates him. ziprasidone mesylate AdvReac Pt. states Verified 06/23/19 11:29 [From Geodon] Geodon makes him excessively sedated Review of Systems ROS Statement: Those systems with pertinent positive or pertinent negative responses have been documented in the HPI. ROS Other: All systems not noted in ROS Statement are negative. Past Medical History Past Medical History: Seizure Disorder Additional Past Medical History / Comment(s): alcohol abuse History of Any Multi-Drug Resistant Organisms: None Reported Past Surgical History: No Surgical Hx Reported Additional Past Surgical History / Comment(s): eyelid sx Past Anesthesia/Blood Transfusion Reactions: No Reported Reaction Past Psychological History: Bipolar Smoking Status: Heavy tobacco smoker Past Alcohol Use History: Abuse, Daily, Heavy Past Drug Use History: None Reported - Past Family History Father Family Medical History: No Reported History General Exam - General Exam Comments Initial Comments: GENERAL: Patient is well-developed and well-nourished. Patient is nontoxic and well- hydrated and is in no acute distress. Patient appears to be intoxicated ENT: Neck is soft and supple. No significant lymphadenopathy is noted. Oropharynx is clear. Moist mucous membranes. Neck has full range of motion without eliciting any pain. EYES: Patient's left I appears not to be functioning however he will not let me look at it in fact gets angry when I try to look at his eye. Patient states it's been this way for a year there is no point me looking at now. PULMONARY: Unlabored respirations. Good breath sounds bilaterally. No audible rales rhonchi or wheezing was noted. CARDIOVASCULAR: There is a regular rate and rhythm without any murmurs gallops or rubs. ABDOMEN: Soft and nontender with normal bowel sounds. No palpable organomegaly was noted. There is no palpable pulsatile mass. SKIN: Skin is clear with no lesions or rashes and otherwise unremarkable. NEUROLOGIC: Patient is alert and oriented x3. Cranial nerves II through XII are grossly intact. Motor and sensory are also intact. Normal speech, volume and content. Symmetrical smile. MUSCULOSKELETAL: Normal extremities with adequate strength and full range of motion. No lower extremity swelling or edema. No calf tenderness. LYMPHATICS: No significant lymphadenopathy is noted PSYCHIATRIC: Patient denies suicidal or homicidal ideations. Patient states she's having no psychiatric issues. Limitations: no limitations Course Vital Signs 06/23/19 11:11 Temperature 97.9 F Pulse Rate 88 Respiratory 18 Rate Blood Pressure 124/81 O2 Sat by Pulse 97 Oximetry Medical Decision Making - Medical Decision Making Patient rested comfortably for 3 hours in the emergency department he then got up and walked around and ambulated without problem the appeared clinically sober to this point he will be discharged home Disposition Clinical Impression: Alcohol abuse Disposition: HOME SELF-CARE Condition: Good Instructions (If sedation given, give patient instructions): Abuse of Alcohol (ED) Is patient prescribed a controlled substance at d/c from ED?: No Referrals: Deshaun Velazquez MD [Primary Care Provider] - 1-2 days Time of Disposition: 14:13
[2019-06-23 14:34] VITALS: BP 118/68; PULSE 82; TEMP 97.7
== END 2019-06-23 14:25 | disposition home or self-care (01) ==
LOC: EC 11:06
DX: F10.10 Alcohol abuse, uncomplicated (principal); F17.200 Nicotine dependence, unspecified, uncomplicated; Z88.8 Allergy status to other drugs, medicaments and biological substances
CPT/HCPCS: 82075; 99283

== ENCOUNTER 2019-07-09 18:26 | Emergency (ER) | payer MEDICARE, OTHER ==
[2019-07-09 18:33] VITALS: RESP 18
[2019-07-09 20:17] LABS: Anisocytosis Slight; HCT 38.8 % (39.0-53.0); HGB 12.7 gm/dL (13.0-17.5); MCH 35.6 pg (25.0-35.0); MCHC 32.6 g/dL (31.0-37.0); MCV 109.1 fL (80.0-100.0); Macrocytosis Marked; Mean Platelet Volume 7.9; Platelet Count 149 k/uL (150-450); RBC 3.56 m/uL (4.30-5.90); RDW 16.3 % (11.5-15.5)
[2019-07-09 20:22] LABS: African American GFR (CKD) >90 (>60 ml/min/1.73 sqM); Anion Gap 14 mmol/L; Blood Urea Nitrogen 23 mg/dL (9-20); Calcium 9.5 mg/dL (8.4-10.2); Carbon Dioxide 26 mmol/L (22-30); Chloride 102 mmol/L (98-107); Glucose 121 mg/dL (74-99); Sodium 142 mmol/L (137-145)
[2019-07-09 20:24] LABS: Alcohol 227 mg/dL
[2019-07-09 21:30] LABS: Band Neutrophils % 1 %; Eosinophils # (M) 0.06 k/uL (0-0.7); Lymphocytes # (M) 0.84 k/uL (1.0-4.8); Monocytes # (M) 0.36 k/uL (0-1.0); Myelocytes # (M) 0.03 k/uL (0); Myelocytes % 1 %; Neutrophils % (M) 58 %; Nucleated Red Blood Cells 0 /100 WBC (0-0); Total Cells Counted 200
[2019-07-09 21:31] LABS: Polychromasia Present
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
[2019-07-10 00:51] VITALS: BP 108/77; PULSE 98; TEMP 98
== END 2019-07-10 01:06 | disposition home or self-care (01) ==
LOC: EC 18:26
DX: F10.129 Alcohol abuse with intoxication, unspecified (principal); F64.1 Dual role transvestism; Z87.890 Personal history of sex reassignment; H54.62 Unqualified visual loss, left eye, normal vision right eye; F17.200 Nicotine dependence, unspecified, uncomplicated; Z86.69 Personal history of other diseases of the nervous system and sense organs; Z79.890 Hormone replacement therapy; Z88.8 Allergy status to other drugs, medicaments and biological substances
CPT/HCPCS: 99284; 36415; 80048; 85025; G0480; 80320

== ENCOUNTER 2019-07-17 10:59 | Emergency (ER) | payer MEDICARE, OTHER ==
[2019-07-17 11:07] VITALS: RESP 18
--- NOTE | 2019-07-17 12:06 | ED ---
General Adult HPI - General Chief complaint: Psychiatric Symptoms Stated complaint: EPS eval Time Seen by Provider: 07/17/19 11:26 Source: patient, RN notes reviewed Mode of arrival: ambulatory Limitations: no limitations - History of Present Illness Initial comments: Patient is a pleasant 59-year-old male presenting to the emergency Department with depression. Patient states his symptoms are worse because he is going to be evicted. Patient has no where to go. Patient states he does have suicidal thoughts occasionally. Patient states earlier he had a plan to hang himself. Patient denies any new physical complaints. Patient states left eye problems are chronic. Patient denies hallucinations. Patient states occasional alcohol use however none today. No street drug use. No homicidal thoughts. - Related Data Home Medications Medication Instructions Recorded Confirmed Levothyroxine Sodium [Synthroid] 50 mcg PO DAILY 10/25/16 07/17/19 Ergocalciferol [Vitamin D2] 50,000 unit PO Q7D 06/08/19 07/17/19 Allergies Allergy/AdvReac Type Severity Reaction Status Date / Time ziprasidone HCl [From Geodon] AdvReac Unknown Pt states Verified 07/17/19 11:15 geodon over sedates him. ziprasidone mesylate AdvReac Pt. states Verified 07/17/19 11:15 [From Geodon] Geodon makes him excessively sedated Review of Systems ROS Statement: Those systems with pertinent positive or pertinent negative responses have been documented in the HPI. ROS Other: All systems not noted in ROS Statement are negative. Constitutional: Denies: fever Eyes: Denies: eye pain ENT: Denies: ear pain Respiratory: Denies: cough Cardiovascular: Denies: chest pain Endocrine: Denies: fatigue Gastrointestinal: Denies: abdominal pain Genitourinary: Denies: dysuria Musculoskeletal: Denies: back pain Skin: Denies: rash Neurological: Denies: weakness Psychiatric: Reports: depression, suicidal thoughts Past Medical History Past Medical History: Seizure Disorder Additional Past Medical History / Comment(s): alcohol abuse History of Any Multi-Drug Resistant Organisms: None Reported Past Surgical History: No Surgical Hx Reported Additional Past Surgical History / Comment(s): eyelid sx Past Anesthesia/Blood Transfusion Reactions: No Reported Reaction Past Psychological History: Bipolar Smoking Status: Heavy tobacco smoker Past Alcohol Use History: Abuse, Daily, Heavy Past Drug Use History: None Reported - Past Family History Father Family Medical History: No Reported History General Exam Limitations: no limitations General appearance: alert, in no apparent distress Head exam: Present: atraumatic Eye exam: Present: other (Left Eyelid droop with left eye opacification which patient states is chronic) ENT exam: Present: normal oropharynx Neck exam: Present: normal inspection Respiratory exam: Present: normal lung sounds bilaterally Cardiovascular Exam: Present: regular rate, normal rhythm GI/Abdominal exam: Present: soft. Absent: tenderness Extremities exam: Present: normal inspection. Absent: pedal edema, calf tenderness Neurological exam: Present: alert Psychiatric exam: Present: depressed Skin exam: Present: normal color Course Vital Signs 07/17/19 11:03 Temperature 97.9 F Pulse Rate 112 H Respiratory 18 Rate Blood Pressure 134/78 O2 Sat by Pulse 96 Oximetry Medical Decision Making - Medical Decision Making Patient seen by mental health services with plan for discharge. Patient resting comfortably in bed. Patient does contract for safety. - Lab Data Lab Results 07/17/19 Range/Units 15:10 Urine Opiates Screen Not Detected (NotDetected) Ur Oxycodone Screen Not Detected (NotDetected) Urine Methadone Screen Not Detected (NotDetected) Ur Propoxyphene Screen Not Detected (NotDetected) Ur Barbiturates Screen Not Detected (NotDetected) U Tricyclic Antidepress Not Detected (NotDetected) Ur Phencyclidine Scrn Not Detected (NotDetected) Ur Amphetamines Screen Not Detected (NotDetected) U Methamphetamines Scrn Not Detected (NotDetected) U Benzodiazepines Scrn Not Detected (NotDetected) Urine Cocaine Screen Not Detected (NotDetected) U Marijuana (THC) Screen Not Detected (NotDetected) Disposition Clinical Impression: Depression Disposition: HOME SELF-CARE Condition: Stable Instructions (If sedation given, give patient instructions): Depression (ED) Additional Instructions: Please follow-up with mental health services as directed. Please follow-up to primary care physician in the being the week. Return for worsening symptoms, thoughts of self-harm, or other concerns. Is patient prescribed a controlled substance at d/c from ED?: No Referrals: Deshaun Velazquez MD [Primary Care Provider] - 1-2 days Time of Disposition: 19:13
[2019-07-17 15:38] LABS: Amphetamine Screen,Urine Not Detected (NotDetected); Barbiturate Screen,Urine Not Detected (NotDetected); Benzodiazepines Screen,Urine Not Detected (NotDetected); Cocaine Screen,Urine Not Detected (NotDetected); Methadone Screen, Urine Not Detected (NotDetected); Opiate Screen,Urine Not Detected (NotDetected); Oxycodone Screen, Urine Not Detected (NotDetected); Phencyclidine Screen,Urine Not Detected (NotDetected); Tricyclic Antidepressant,Urine Not Detected (NotDetected); Urn Cannabinoid Scrn Not Detected (NotDetected)
[2019-07-17 19:23] VITALS: BP 106/56; PULSE 89; TEMP 97.5
== END 2019-07-17 19:28 | disposition home or self-care (01) ==
LOC: EC 10:59
DX: F31.30 Bipolar disorder, current episode depressed, mild or moderate severity, unspecified (principal); R45.851 Suicidal ideations; H02.402 Unspecified ptosis of left eyelid; F17.200 Nicotine dependence, unspecified, uncomplicated; Z88.8 Allergy status to other drugs, medicaments and biological substances; Z79.890 Hormone replacement therapy; Z98.890 Other specified postprocedural states
CPT/HCPCS: 80306; 82075; 99285

== ENCOUNTER 2019-07-24 17:49 | Emergency (ER) | payer MEDICARE, OTHER ==
--- NOTE | 2019-07-24 19:10 | ED ---
General Adult HPI - General Chief complaint: Psychiatric Symptoms Stated complaint: Mental Health Time Seen by Provider: 07/24/19 17:56 Source: patient Mode of arrival: ambulatory Limitations: no limitations - History of Present Illness Initial comments: Dictation was produced using [employer] dictation software. please excuse any grammatical, word or spelling errors. Chief Complaint: 59-year-old male presents with suicidal ideation History of Present Illness: Patient is a 59-year-old male. He currently resides at the local homeless detention. Patient was brought in by law enforcement for suicidal ideation. Patient reports feeling slightly suicidal. The was more suicidal earlier today. Patient states that he said something that made bystanders believed that he was suicidal. EMS was called patient transported to the emergency department. Patient states that earlier he said that he was current time and was around his neck if he doesn't find a place to live. On the detention staff interpreted that as suicidal ideation. Patient reports having been suicidal in the past. He denies any medical advice at this time. The ROS documented in this emergency department record has been reviewed and confirmed by me. Those systems with pertinent positive or negative responses have been documented in the HPI. All other systems are other negative and/or noncontributory. PHYSICAL EXAM: General Impression: Alert and oriented x3, not in acute distress HEENT: Normocephalic atraumatic, extra-ocular movements intact, pupils equal and reactive to light bilaterally, mucous membranes moist. Cardiovascular: Heart regular rate and rhythm, S1&S2 audible, no murmurs, rubs or gallops Chest: Lungs clear to auscultation bilaterally, no rhonchi, no wheeze, no rales Abdomen: Bowel sounds present, abdomen soft, non-tender, non-distended, no organomegaly Musculoskeletal: Pulses present and equal in all extremities, no peripheral edema Motor: no focal deficits noted Neurological: CN II-XII grossly intact, no focal motor or sensory deficits noted Skin: Intact with no visualized rashes Psych: Normal affect and mood ED course: 59 yo male presents with suicidal ideation. Physical examination is benign. Patient has no medical complaints. As upon arrival are within acceptable limits. Patient was evaluated by EPS. Patient is well-known to the EPS team. They report that patient is stating these things because he was just evicted from his home a detention. Patient was concerned because he felt like he didn't have a place to live however EPS follow-up with, detention and was accepted to the [facility] detention. Patient has outpatient management with mobile crisis. They will be ranging transportation for him to take to the detention. Patient reevaluated at bedside. He is cooperative tolerating by mouth and is agreeable with plan. She clinically stable for discharge. - Related Data Home Medications Medication Instructions Recorded Confirmed Levothyroxine Sodium [Synthroid] 50 mcg PO DAILY 10/25/16 07/24/19 Ergocalciferol [Vitamin D2] 50,000 unit PO FR 06/08/19 07/24/19 Allergies Allergy/AdvReac Type Severity Reaction Status Date / Time ziprasidone HCl [From Geodon] AdvReac Unknown Pt states Verified 07/24/19 18:22 geodon over sedates him. ziprasidone mesylate AdvReac Pt. states Verified 07/24/19 18:22 [From Geodon] Geodon makes him excessively sedated Review of Systems ROS Statement: Those systems with pertinent positive or pertinent negative responses have been documented in the HPI. ROS Other: All systems not noted in ROS Statement are negative. Past Medical History Past Medical History: Seizure Disorder Additional Past Medical History / Comment(s): alcohol abuse History of Any Multi-Drug Resistant Organisms: None Reported Past Surgical History: No Surgical Hx Reported Additional Past Surgical History / Comment(s): eyelid sx Past Anesthesia/Blood Transfusion Reactions: No Reported Reaction Past Psychological History: Bipolar Smoking Status: Heavy tobacco smoker Past Alcohol Use History: Abuse, Daily, Heavy Past Drug Use History: None Reported - Past Family History Father Family Medical History: No Reported History General Exam Limitations: no limitations Course Vital Signs 07/24/19 17:50 Temperature 98.5 F Pulse Rate 85 Respiratory 18 Rate Blood Pressure 113/73 O2 Sat by Pulse 100 Oximetry Disposition Clinical Impression: Suicidal behavior Disposition: HOME SELF-CARE Condition: Good Instructions (If sedation given, give patient instructions): Help Prevent Suicide (ED) Is patient prescribed a controlled substance at d/c from ED?: No Referrals: Deshaun Velazquez MD [Primary Care Provider] - 1-2 days Time of Disposition: 20:11
[2019-07-24 20:31] VITALS: BP 103/67; PULSE 90; RESP 14; TEMP 98.8
== END 2019-07-24 20:32 | disposition home or self-care (01) ==
LOC: EC 17:49
DX: R45.851 Suicidal ideations (principal); F17.200 Nicotine dependence, unspecified, uncomplicated; Z88.8 Allergy status to other drugs, medicaments and biological substances; Z79.890 Hormone replacement therapy; Z86.59 Personal history of other mental and behavioral disorders
CPT/HCPCS: 82075; 99285

== ENCOUNTER 2019-07-31 14:51 | Inpatient (IN) | payer MEDICARE, MEDICAID ==
--- NOTE | 2019-07-31 15:27 | ED ---
Psych HPI - General Chief Complaint: Psychiatric Symptoms Stated Complaint: Mental Health, suicidal Time Seen by Provider: 07/31/19 15:05 Source: police Mode of arrival: ambulatory - History of Present Illness Initial Comments: This 59-year-old white male presents with a complaint of being depressed. He states that he has been depressed for many years but it has been worse recently. He is homeless and is [facility] at a [facility]. He also states that he drinks daily, up to 1/2 gallon most days. He denies any drug use. He states that he is feeling like killing himself. He would like to shoot himself. He does have a long-standing history of depression and is had multiple previous psychiatric hospitalizations. He denies any current medical complaints. No other modifying factors. - Related Data Home Medications Medication Instructions Recorded Confirmed Levothyroxine Sodium [Synthroid] 50 mcg PO DAILY 10/25/16 07/31/19 Ergocalciferol [Vitamin D2] 50,000 unit PO FR 06/08/19 07/31/19 Allergies Allergy/AdvReac Type Severity Reaction Status Date / Time ziprasidone HCl [From Geodon] AdvReac Unknown Pt states Verified 07/31/19 15:39 geodon over sedates him. ziprasidone mesylate AdvReac Pt. states Verified 07/31/19 15:39 [From Geodon] Geodon makes him excessively sedated Review of Systems ROS Statement: Those systems with pertinent positive or pertinent negative responses have been documented in the HPI. ROS Other: All systems not noted in ROS Statement are negative. Past Medical History Past Medical History: Seizure Disorder Additional Past Medical History / Comment(s): alcohol abuse History of Any Multi-Drug Resistant Organisms: None Reported Past Surgical History: No Surgical Hx Reported Additional Past Surgical History / Comment(s): eyelid sx Past Anesthesia/Blood Transfusion Reactions: No Reported Reaction Past Psychological History: Bipolar Smoking Status: Heavy tobacco smoker Past Alcohol Use History: Abuse, Daily, Heavy Past Drug Use History: None Reported - Past Family History Father Family Medical History: No Reported History General Exam - General Exam Comments Initial Comments: GENERAL: The patient is well nourished and well hydrated. VITAL SIGNS: Heart rate, blood pressure, respiratory rate reviewed as recorded in nurse's notes. EYES: Pupils are round and reactive. Extraocular movements are intact. No conjunctival / lid redness or swelling. ENT: No external evidence of injury, swelling, or ecchymosis. Airway is patent. Throat is clear. NECK: Nontender. No swelling or evidence of injury. No subcutaneous emphysema. Trachea is midline. No thyroid mass. HEART: Regular rate and rhythm. Good peripheral pulses. LUNGS/CHEST: Breath sounds clear and equal bilaterally. No rales, rhonchi, or wheezes. No ecchymosis, subcutaneous emphysema, or tenderness. ABDOMEN: Abdomen soft without tenderness. No palpable masses or organomegaly. No peritoneal signs. No abdominal wall swelling or ecchymosis. EXTREMITIES: No extremity tenderness. Normal muscle tone and function. No thoracolumbar tenderness. NEUROLOGIC: Sensation is grossly intact. Cranial nerve exam reveals face is symmetrical, tongue is midline, speech is clear. SKIN: No abrasions or ecchymosis is noted. No induration or masses noted. PSYCHIATRIC: Alert and oriented. Somewhat flat affect. Limitations: no limitations Course Vital Signs 07/31/19 14:58 Temperature 97.8 F Pulse Rate 65 Respiratory 20 Rate Blood Pressure 118/66 O2 Sat by Pulse 100 Oximetry Medical Decision Making - Medical Decision Making The patient was seen and examined. All diagnostics are reviewed. His breath alcohol test is negative. There are no current signs of alcohol withdrawal. It is felt as though he is medically cleared for further psychiatric evaluation. The psychiatric team will be notified. Further care will be passed off to oncoming physician. - Lab Data Lab Results 07/31/19 Range/Units 15:10 Urine Color Light Yellow Urine Appearance Clear (Clear) Urine pH 6.0 (5.0-8.0) Ur Specific [place] 1.007 (1.001-1.035) Urine Protein Negative (Negative) Urine Glucose (UA) Negative (Negative) Urine Ketones Negative (Negative) Urine Blood Negative (Negative) Urine Nitrite Negative (Negative) Urine Bilirubin Negative (Negative) Urine Urobilinogen <2.0 (<2.0) mg/dL Ur Leukocyte Esterase Negative (Negative) Urine Opiates Screen Not Detected (NotDetected) Ur Oxycodone Screen Not Detected (NotDetected) Urine Methadone Screen Not Detected (NotDetected) Ur Propoxyphene Screen Not Detected (NotDetected) Ur Barbiturates Screen Not Detected (NotDetected) U Tricyclic Antidepress Not Detected (NotDetected) Ur Phencyclidine Scrn Not Detected (NotDetected) Ur Amphetamines Screen Not Detected (NotDetected) U Methamphetamines Scrn Not Detected (NotDetected) U Benzodiazepines Scrn Not Detected (NotDetected) Urine Cocaine Screen Not Detected (NotDetected) U Marijuana (THC) Screen Not Detected (NotDetected) Disposition Clinical Impression: Depression, Suicidal ideation Disposition: ADMITTED IP TO THIS [facility] Condition: Fair Is patient prescribed a controlled substance at d/c from ED?: No Referrals: Deshaun Velazquez MD [Primary Care Provider] - 1-2 days
[2019-07-31 15:29] LABS: Appearance,Urine Clear (Clear); Bilirubin,Urine Negative (Negative); Blood,Urine Negative (Negative); Color,Urine Light Yellow; Glucose,Urine (UA) Negative (Negative); Ketones,Urine Negative (Negative); Leukocyte Esterase,Urine Negative (Negative); Nitrite,Urine Negative (Negative); Protein,Urine Negative (Negative); Specific Gravity,Urine 1.007 (1.001-1.035); Urobilinogen,Urine <2.0 mg/dL (<2.0)
[2019-07-31 15:46] LABS: Amphetamine Screen,Urine Not Detected (NotDetected); Barbiturate Screen,Urine Not Detected (NotDetected); Benzodiazepines Screen,Urine Not Detected (NotDetected); Cocaine Screen,Urine Not Detected (NotDetected); Methadone Screen, Urine Not Detected (NotDetected); Opiate Screen,Urine Not Detected (NotDetected); Oxycodone Screen, Urine Not Detected (NotDetected); Phencyclidine Screen,Urine Not Detected (NotDetected); Tricyclic Antidepressant,Urine Not Detected (NotDetected); Urn Cannabinoid Scrn Not Detected (NotDetected)
[2019-07-31] MEDS ORDERED: LORazepam 1 MG TAB PO PRN (22:07)
[2019-07-31] MEDS ORDERED: ZIPRASIDONE 20 MG VIAL IM PRN (22:07)
[2019-07-31] MEDS ORDERED: MAGNESIUM HYDROXIDE 2,400 MG/10 ML CUP PO PRN (22:07)
[2019-07-31] MEDS ORDERED: ACETAMINOPHEN TAB 325 MG TAB PO PRN (22:07)
[2019-07-31] MEDS ORDERED: MAG HYDROX/AL HYDROX/SIMETH 30 ML CUP PO PRN (22:07)
[2019-08-01] MEDS: NICOTINE 14MG/24HR PATCH TRANSDERM SCH ×2 (03:40→08:34)
[2019-08-01 08:11] LABS: ALT 33 U/L (21-72); AST 24 U/L (17-59); African American GFR (CKD) >90 (>60 ml/min/1.73 sqM); Albumin 3.3 g/dL (3.5-5.0); Alkaline Phosphatase 69 U/L (38-126); Anion Gap 6 mmol/L; Blood Urea Nitrogen 11 mg/dL (9-20); Calcium 9.2 mg/dL (8.4-10.2); Carbon Dioxide 28 mmol/L (22-30); Chloride 106 mmol/L (98-107); Cholesterol 162 mg/dL (<200); Glucose 97 mg/dL (74-99); HDL Cholesterol 59 mg/dL (40-60); LDL Cholesterol,Calculated 87 mg/dL (0-99); Potassium 4.6 mmol/L (3.5-5.1); Sodium 140 mmol/L (137-145); Total Bilirubin 0.2 mg/dL (0.2-1.3); Total Protein 5.9 g/dL (6.3-8.2); Triglycerides 82 mg/dL (<150)
[2019-08-01 09:07] LABS: HCT 35.2 % (39.0-53.0); HGB 11.9 gm/dL (13.0-17.5); MCH 36.3 pg (25.0-35.0); MCHC 33.7 g/dL (31.0-37.0); MCV 107.9 fL (80.0-100.0); Macrocytosis Marked; Mean Platelet Volume 6.8; Platelet Count 259 k/uL (150-450); RBC 3.26 m/uL (4.30-5.90); RDW 15.4 % (11.5-15.5); WBC 5.7 k/uL (3.8-10.6)
[2019-08-01 13:51] LABS: Band Neutrophils % 1 %; Eosinophils # (M) 0.23 k/uL (0-0.7); Lymphocytes # (M) 1.65 k/uL (1.0-4.8); Monocytes # (M) 0.34 k/uL (0-1.0); Neutrophils % (M) 60 %; Nucleated Red Blood Cells 0 /100 WBC (0-0); Total Cells Counted 100
--- NOTE | 2019-08-01 15:26 | P.HP ---
Psychiatric H&P - . H&P Date: 08/01/19 History & Physical: Allergies Allergy/AdvReac Type Severity Reaction Status Date / Time ziprasidone HCl [From Geodon] AdvReac Unknown Pt states Verified 07/31/19 15:39 geodon over sedates him. ziprasidone mesylate AdvReac Pt. states Verified 07/31/19 15:39 [From Geodon] Geodon makes him excessively sedated Vital Signs Temp 98.6 F 08/01/19 06:56 Pulse 64 08/01/19 06:56 Resp 16 08/01/19 06:56 BP 111/60 08/01/19 06:56 Pulse Ox 98 07/31/19 21:32 Intake & Output 07/31/19 08/01/19 08/01/19 18:59 06:59 18:59 Weight 61.235 kg 67.721 kg Laboratory Last Values WBC 5.7 k/uL (3.8-10.6) 08/01/19 07:39 RBC 3.26 m/uL (4.30-5.90) L 08/01/19 07:39 Hgb 11.9 gm/dL (13.0-17.5) L 08/01/19 07:39 Hct 35.2 % (39.0-53.0) L 08/01/19 07:39 MCV 107.9 fL (80.0-100.0) H 08/01/19 07:39 MCH 36.3 pg (25.0-35.0) H 08/01/19 07:39 MCHC 33.7 g/dL (31.0-37.0) 08/01/19 07:39 RDW 15.4 % (11.5-15.5) 08/01/19 07:39 Plt Count 259 k/uL (150-450) 08/01/19 07:39 Neutrophils % (Manual) 60 % 08/01/19 07:39 Band Neutrophils % 1 % 08/01/19 07:39 Lymphocytes % (Manual) 29 % 08/01/19 07:39 Monocytes % (Manual) 6 % 08/01/19 07:39 Eosinophils % (Manual) 4 % 08/01/19 07:39 Neutrophils # (Manual) 3.40 k/uL (1.3-7.7) 08/01/19 07:39 Lymphocytes # (Manual) 1.65 k/uL (1.0-4.8) 08/01/19 07:39 Monocytes # (Manual) 0.34 k/uL (0-1.0) 08/01/19 07:39 Eosinophils # (Manual) 0.23 k/uL (0-0.7) 08/01/19 07:39 Nucleated RBCs 0 /100 WBC (0-0) 08/01/19 07:39 Manual Slide Review Performed 08/01/19 07:39 Macrocytosis Marked A 08/01/19 07:39 Sodium 140 mmol/L (137-145) 08/01/19 07:39 Potassium 4.6 mmol/L (3.5-5.1) 08/01/19 07:39 Chloride 106 mmol/L (98-107) 08/01/19 07:39 Carbon Dioxide 28 mmol/L (22-30) 08/01/19 07:39 Anion Gap 6 mmol/L 08/01/19 07:39 BUN 11 mg/dL (9-20) 08/01/19 07:39 Creatinine 0.82 mg/dL (0.66-1.25) 08/01/19 07:39 Est GFR (CKD-EPI)AfAm >90 (>60 ml/min/1.73 sqM) 08/01/19 07:39 Est GFR (CKD-EPI)NonAf >90 (>60 ml/min/1.73 sqM) 08/01/19 07:39 Glucose 97 mg/dL (74-99) 08/01/19 07:39 Calcium 9.2 mg/dL (8.4-10.2) 08/01/19 07:39 Total Bilirubin 0.2 mg/dL (0.2-1.3) 08/01/19 07:39 AST 24 U/L (17-59) 08/01/19 07:39 ALT 33 U/L (21-72) 08/01/19 07:39 Alkaline Phosphatase 69 U/L (38-126) 08/01/19 07:39 Total Protein 5.9 g/dL (6.3-8.2) L 08/01/19 07:39 Albumin 3.3 g/dL (3.5-5.0) L 08/01/19 07:39 Triglycerides 82 mg/dL (<150) 08/01/19 07:39 Cholesterol 162 mg/dL (<200) 08/01/19 07:39 LDL Cholesterol, Calc 87 mg/dL (0-99) 08/01/19 07:39 HDL Cholesterol 59 mg/dL (40-60) 08/01/19 07:39 TSH 1.670 mIU/L (0.465-4.680) 08/01/19 07:39 Urine Color Light Yellow 07/31/19 15:10 Urine Appearance Clear (Clear) 07/31/19 15:10 Urine pH 6.0 (5.0-8.0) 07/31/19 15:10 Ur Specific [place] 1.007 (1.001-1.035) 07/31/19 15:10 Urine Protein Negative (Negative) 07/31/19 15:10 Urine Glucose (UA) Negative (Negative) 07/31/19 15:10 Urine Ketones Negative (Negative) 07/31/19 15:10 Urine Blood Negative (Negative) 07/31/19 15:10 Urine Nitrite Negative (Negative) 07/31/19 15:10 Urine Bilirubin Negative (Negative) 07/31/19 15:10 Urine Urobilinogen <2.0 mg/dL (<2.0) 07/31/19 15:10 Ur Leukocyte Esterase Negative (Negative) 07/31/19 15:10 Urine Opiates Screen Not Detected (NotDetected) 07/31/19 15:10 Ur Oxycodone Screen Not Detected (NotDetected) 07/31/19 15:10 Urine Methadone Screen Not Detected (NotDetected) 07/31/19 15:10 Ur Propoxyphene Screen Not Detected (NotDetected) 07/31/19 15:10 Ur Barbiturates Screen Not Detected (NotDetected) 07/31/19 15:10 U Tricyclic Antidepress Not Detected (NotDetected) 07/31/19 15:10 Ur Phencyclidine Scrn Not Detected (NotDetected) 07/31/19 15:10 Ur Amphetamines Screen Not Detected (NotDetected) 07/31/19 15:10 U Methamphetamines Scrn Not Detected (NotDetected) 07/31/19 15:10 U Benzodiazepines Scrn Not Detected (NotDetected) 07/31/19 15:10 Urine Cocaine Screen Not Detected (NotDetected) 07/31/19 15:10 U Marijuana (THC) Screen Not Detected (NotDetected) 07/31/19 15:10 08/01/19 15:26 Chief complaint I told few people I want to kill myself. History of presenting illness Reports feeling hopeless, worthless and sad. Says life is not fair for him. Wanted to kill himself via hanging. He says he does not have a gun but knows people who has gun and can get it from them. Reports to have been evicted out of his apartment and has been living in an homeless half-way over the past 4-5 days. Says I have been questioning my life for many years and I want to do away with my life /self, so every one will enjoy my actions, they dont have to worry and I dont have to worry anymore. He says my memory is not good and I miss my appointments. When asked about hopes and strengths he stated i want to stay on my money and bridge card. He says every time I try to help myself there are to many brick vázquez and I cant go through, I loose my paper work, miss files, problems with the people I deal with and no body helps me, I have been a loner all my life. He reports drinking fifth to half gallon of liquor daily. Says he drinks as much as his money can buy. He also reports smoking cigars rolled by himself. He reports smoking cigars equivalent to two and three packs of cigarettes per day. He says he wants to continue to do what he wants to do. He claims ot have been to rehab center called [facility] twice this year. He is currently reluctant to take medications for alcohol abuse and stated he can quit on his own and has done it in the past. He claims to have stopped taking his psychiatric medications one and half years ago stating he does not want to take medications along with alcohol. He says psychotropic medications will calm down his nerves, thinking and reasoning mellows out to certain point. He reports seeing and feeling paranormal things around him and says he has been around multiple times in his life. He claims ot have seen people and kill themselves. He reports feeling paranoid at times, people watching him, can hear them but cant see them WHEN HE TURNS AROUND. He reports fair appetite, sleep never good. Past psychiatric history Reports being started on psychiatric medications around the age of 15, says he doesnt remember the reason for being started on psychiatric medications. Reports multiple psychiatric hospitalizations mostly due to mood instability, suicidal ideations, medication non compliance. Reports being diagnosed with bipolar disorder and follows up with [facility]. He claims to have stopped taking his psychiatric medications one and half years ago stating he does not want to take medications along with alcohol. He says psychotropic medications will calm down his nerves, thinking and reasoning mellows out to certain point. Substance use history He reports drinking fifth to half gallon of liquor daily. Says he drinks as much as his money can buy. He also reports smoking cigars rolled by himself. He reports smoking cigars equivalent to two and three packs of cigarettes per day. He says he wants to continue to do what he wants to do. He claims to have been to rehab center called [facility] twice this year. He is currently reluctant to take medications for alcohol abuse and stated he can quit on his own and has done it in the past. Medical history Seizure Disorder Social history Born in [place], [place]. Denies history of abuse. Has three siblings. Completed high school. . in late seventies. No children. Live alone. Mental status exam 59 YEAR OLD MALE. He appears his stated age in fair grooming and hygiene. No abnormal movements noted. He maintains good eye contact. His speech and thought process are goal directed. His mood is reported as I dont care. Affect constricted. He reports auditory, visual hallucinations. Has paranoid ideations. Reports ongoing suicidal ideations. No homicidal ideations. He is alert and oriented x 4. His insight and judgement are poor. Diagnosis Bipolar disorder Alcohol abuse Plan 59-year-old male admitted through emergency department for suicidal ideations. Medicine consult for physical examination psychosocial evaluation. After discussing benefits and risks of medications he has agreed to take seroquel and remeron . Will start him on seroquel 50mg po qhs for mood stability and psychosis. REmeron for insomnia. doses will titrated as tolerated and resp onsiveness. Monitor for symptoms will receive milieu therapy group therapy individual therapy occupational therapy recreational therapy and medication education. Discharge with outpatient follow-up. Referral to out patient substance use program Treatment goals: Medication stabilization Insight improvement, encourage treatment adherence and development of better coping skills to be free of suicide thoughts and behavior.
--- NOTE | 2019-08-01 17:52 | CONS ---
CONSULTATION CHIEF COMPLAINT: Major depression. HISTORY OF PRESENT ILLNESS: This is another of many admissions for this 59-year-old gentleman. He has a long history of mental health problems, alcoholism and transvestism. Whenever he drinks, he stops taking his medications. He then becomes suicidal. REVIEW OF SYSTEMS: He denies headaches, shortness of breath, chest pain, abdominal pain, nausea, vomiting, hematemesis, bloating, melena, hematochezia, renal failure, dysuria, hematuria, diabetes, etc. Past medical history, family history, and personal and social histories indicate that he is ALLERGIC to GEODON. When he was last seen in June, he was only taking vitamin D. He also smokes and drinks heavily frequently. PHYSICAL EXAMINATION: Blood pressure 110/64, pulse 62 and regular, respiratory rate 16. He is afebrile. In general he appeared to be somewhat disheveled. Head, ears, eyes, nose, mouth and throat demonstrated chronic injection of the left eye and drooping eyelids. He has had surgery for ptosis in the past. Neck was supple. Neck veins were not distended. Chest was clear. Cardiac exam demonstrated sinus rhythm and there were no murmurs or extra sounds. Abdomen was soft with no masses. Extremities were normal. Neurologically he was intact. Affect was of depression. RECOMMENDATIONS: None at this time. He will be placed back on levothyroxine. Thyroid studies have been ordered. He has mild macrocytic anemia consistent with his alcoholism. MMODL / IJN: [id number] /
[2019-08-01] MEDS: MIRTAZAPINE 15 MG TAB PO SCH (20:06)
[2019-08-01] MEDS ORDERED: QUEtiapine 50 MG TAB PO SCH (21:00)
[2019-08-01 21:03] LABS: Hemoglobin A1C 4.8 % (4.0-6.0)
[2019-08-02] MEDS: LEVOTHYROXINE 50 MCG TAB PO SCH (06:35)
[2019-08-02] MEDS: NICOTINE 14MG/24HR PATCH TRANSDERM SCH (09:17)
[2019-08-02] MEDS ORDERED: QUEtiapine 50 MG TAB PO SCH (14:03)
--- NOTE | 2019-08-02 14:16 | P.PN ---
Progress Note - Text Progress Note Date: 08/02/19 Identifying Information 59-year male with chronic history of Bipolar disorder depression, insomnia alcohol abuse, medication non compliance, living in homeless [facility] was admitted to [facility] with worsening depression and suicidal ideations. Interval history Patient was seen today. He continues to report feeling sad and hopeless. He reports talking in his sleep and says he wakes up due to his loud talk. He also says he did not sleep well last night as he has to go to the bathroom multiple times. He says he stays isolated. He claims to have attended only one group today and says he forces himself to stay focused in groups. He reports good appetite and says he is here. Mental status exam 59 year old male. He appears his stated age in fair grooming and hygiene. No abnormal movements noted. He maintains good eye contact. His speech and thought process are goal directed. His mood is reported as sad. Affect constricted. He denies current auditory, visual hallucinations. Denies paranoid ideations. Denies current suicidal ideations and homicidal ideations. He is alert and oriented x 4. His insight and judgement are poor. Diagnosis Bipolar disorder Alcohol abuse Plan Will increase seroquel dose to 100mg po qhs for mood instability and psychosis. Continue Remeron for insomnia. doses to be titrated as tolerated
[2019-08-02] MEDS: MIRTAZAPINE 15 MG TAB PO SCH (20:52)
[2019-08-02] MEDS: QUEtiapine 100 MG TAB PO SCH (20:53)
[2019-08-03] MEDS: LEVOTHYROXINE 50 MCG TAB PO SCH (06:29)
[2019-08-03 07:16] VITALS: RESP 16
[2019-08-03] MEDS: NICOTINE 14MG/24HR PATCH TRANSDERM SCH (07:53)
--- NOTE | 2019-08-03 11:38 | P.PN ---
Progress Note - Text Interval history: The patient is found in group he follows me to an interview room. The patient was admitted for symptoms of depression and suicidal ideation. He does have a history of alcohol use disorder but states he hasn't had any alcohol in 3 weeks. He was started on Seroquel 100 mg at bedtime Remeron 7.5 mg in the evening. He has no questions or concerns regarding his medications. He indicates he had been on both of them before. He is troubled by the fact that he is homeless and states he needs assistance to find housing. He states he still has suicidal thoughts in the back of his mind. He states that he didn't sleep well staff report he slept 7 hours. Appetite stable. Mental status exam: The patient is alert he is dressed in hospital gowns and is covered with a blanket. He has a disheveled appearance. Eye contact is intermittent speech is fluent spontaneous nonpressured. He endorses a depressed mood with hopelessness thinking. He reports suicidal thoughts "in the back of my mind". He states that he can be spontaneous however and he may just act on them. He indicates he feels safe here in the mental health unit. He is reporting no auditory or visual hallucinations or any specific delusions there is no observed evidence of psychosis. He is demonstrating no verbal or physical aggressiveness no involuntary repetitive movements. Insight and judgment limited. Plan: The patient will continue on his current psychotropic medications we will consider titrating his medication if needed. Vital signs reviewed. We will monitor him for safety and encourage continued participation in the milieu.
[2019-08-03] MEDS: QUEtiapine 100 MG TAB PO SCH (20:17)
[2019-08-03] MEDS: MIRTAZAPINE 15 MG TAB PO SCH (20:17)
[2019-08-04] MEDS: LEVOTHYROXINE 50 MCG TAB PO SCH (06:19)
[2019-08-04] MEDS: NICOTINE 14MG/24HR PATCH TRANSDERM SCH (08:51)
--- NOTE | 2019-08-04 11:58 | P.PN ---
Progress Note - Text Interval history: The patient is found in group he follows me to an interview room. The patient indicates his mood is up and down. He reports that he slept 5 hours last night staff reported the same. Appetite stable. He has been attending some groups. He states that he has no suicidal thoughts at the moment but they could re-present later in the day. He does continue to have some hopeless thoughts. He expresses a metaphor where he feels he is trying to push an enormous boulder up a hill and is only able to move it 2-3 inches at a time and if he lets go it'll roll over him. He refers to his struggle in trying to remain stable sober and comply with outpatient treatment. He has no questions or concerns regarding his psychotropic medication. Mental status exam: The patient is alert he has a disheveled appearance he hasn't shaved he is dressed in his own clothing. Eye contact is intermittent. Speech is fluent spontaneous nonpressured. He reports some hopeless thoughts and continued depressed mood. He indicates feeling safe in the hospital. He reports no homicidal ideation intent or plan. He is reporting no auditory or visual hallucinations there is no observed evidence of psychosis. He does not appear hypomanic or manic. Affect is constricted. Insight and judgment limited he demonstrates no verbal or physical aggressiveness. Plan: The patient will continue on his current medication however I will titrate the Remeron to 15 mg at bedtime. We will continue to monitor him for safety and encourage participation in the milieu. He is encouraged to continue considering what he will do for placement upon discharge. Vital signs reviewed.
[2019-08-04] MEDS: QUEtiapine 100 MG TAB PO SCH (20:11)
[2019-08-04] MEDS: MIRTAZAPINE 15 MG TAB PO SCH (20:11)
[2019-08-05] MEDS: LEVOTHYROXINE 50 MCG TAB PO SCH (06:25)
[2019-08-05] MEDS: NICOTINE 14MG/24HR PATCH TRANSDERM SCH (08:48)
--- NOTE | 2019-08-05 11:19 | P.PN ---
Progress Note - Text Interval history: The patient is found in group he follows me to an interview room. He indicates his mood is only a little better today compared to previous days. He states suicidal thoughts could return at any time. He is focused on getting his bills pain and is hoping he will get assistance from community mental health. We reviewed his psychotropic medication he has no questions or concerns. He slept 6 hours last evening appetite stable. Mental status exam: The patient is a disheveled male he is dressed in his own clothing. He reports his mood is still down although it's mildly improved from the previous days. He states he continues to have suicidal thoughts in the back of his mind he continues to state that he is spontaneous in could act on those if things became worse again. He reports no homicidal ideation intent or plan. He reports no auditory or visual hallucinations or any specific delusions. There is no observed evidence of psychosis. He can be circumstantial at times but demonstrates no tangential thinking loose associations or flight of ideas. Plan: The patient will continue on his current psychotropic medication. We will continue to monitor him for safety. We continue to assist with discharge planning. He is encouraged to continue participating in the milieu. He continues to endorse depressive symptoms of hopelessness thinking.
[2019-08-05] MEDS: MIRTAZAPINE 15 MG TAB PO SCH (20:45)
[2019-08-05] MEDS: QUEtiapine 100 MG TAB PO SCH (20:45)
[2019-08-06] MEDS: LEVOTHYROXINE 50 MCG TAB PO SCH (05:54)
[2019-08-06] MEDS: NICOTINE 14MG/24HR PATCH TRANSDERM SCH (08:50)
--- NOTE | 2019-08-06 10:20 | P.PN ---
Progress Note - Text Interval history: The patient is found in his room he follows me to an interview room. He states he was earlier in group but then left because atopic was raised that was just too emotional for him. He is recorded with slept 7 hours last night. Appetite stable. He continues to be concerned about where he will stay upon discharge. He describes himself as "Dr. Vance and Mr. Cui" in terms of his mood and how they can suddenly change. He endorses continued suicidal thoughts and states "I'm trying not to think about them". Mental status exam: The patient is alert he has a disheveled appearance his hair is unkempt he has not been shaving he is dressed in his own clothing. Eye contact is intermittent. Speech is fluent spontaneous nonpressured. He reports a depressed mood with ongoing suicidal thoughts he states he is trying not to focus on those. He indicates he feels safe in the hospital. He reports no homicidal ideation intent or plan. He endorses no symptoms of psychosis there is no observed evidence of psychosis. He demonstrates no tangential thinking loose associations or flight of ideas. Insight and judgment limited. He demonstrates no involuntary repetitive movements. He maintains a blunted affect throughout the session. Plan: Continued symptoms of depression in the context of alcohol use disorder. He will continue on his current medication. He is slowly responding to the milieu. He requires continued psychiatric hospitalization for safety reasons. He is encouraged to fully participate in groups. Vital signs reviewed.
[2019-08-06] MEDS: MIRTAZAPINE 15 MG TAB PO SCH (20:56)
[2019-08-06] MEDS: QUEtiapine 100 MG TAB PO SCH (20:56)
[2019-08-07] MEDS: LEVOTHYROXINE 50 MCG TAB PO SCH (06:14)
[2019-08-07] MEDS: NICOTINE 14MG/24HR PATCH TRANSDERM SCH (08:29)
--- NOTE | 2019-08-07 09:36 | P.PN ---
Progress Note - Text Interval history: The patient is found in group he follows me to an interview room. He indicates he had a conversation with the people that have his storage unit. He indicated that they would allow him more time to pay his bills. He continues to be concerned about where he will reside upon discharge. He has no questions or concerns regarding his medications. He states he is making an effort to attend groups appetite stable staff reported he slept 6 hours last evening. Mental status exam: The patient states that his mood is slowly improving. He reports feeling safe in the hospital he reports no thoughts of harming himself here. He feels that his hopelessness thinking is starting to remit. He reports no homicidal ideation intent or plan. He reports no auditory or visual hallucinations or specific delusions. He demonstrates no evidence of psychosis hypomania or itzel. He demonstrates no verbal or physical aggressiveness. Affect is constricted. He does have fluent spontaneous speech. There is no evidence of involuntary repetitive movements. Insight and judgment beginning to improve. Plan: The patient will continue on his current psychiatric medications. We will continue to encourage his full participation in the milieu. We will monitor him for safety. He may be appropriate for discharge as early as Saturday if he continues to clinically improved. Vital signs reviewed.
[2019-08-07] MEDS: QUEtiapine 100 MG TAB PO SCH (21:50)
[2019-08-07] MEDS: MIRTAZAPINE 15 MG TAB PO SCH (21:50)
[2019-08-08] MEDS: LEVOTHYROXINE 50 MCG TAB PO SCH (06:10)
[2019-08-08] MEDS: NICOTINE 14MG/24HR PATCH TRANSDERM SCH (08:13)
--- NOTE | 2019-08-08 12:51 | P.PN ---
Progress Note - Text Interval history: The patient's found in his room he follows me to an interview room. He states his mood is pretty good. He is hoping is able to be discharged Saturday. He reports he slept last night staff report he slept 6 hours. [facility]et[facility]. He selectively attend groups. Mental status exam: The patient is alert he is dressed in his own clothing. Eye contact is intermittent. Speech is fluent spontaneous nonpressured. He reports his mood is better affect is brighter. He is reporting no suicidal or homicidal ideation intent or plan. He is reporting no auditory or visual hallucinations or any specific delusions. There is no observed evidence of psychosis. He demonstrates no tangential thinking loose associations or flight of ideas. He demonstrates future oriented thinking. Plan: The patient will continue on his current psychotropic medications. We will monitor him for safety and encourage participation in the milieu. Vital signs reviewed. He appears to be clinically stabilizing we will consider discharge as soon as Saturday.
[2019-08-08] MEDS: QUEtiapine 100 MG TAB PO SCH (20:42)
[2019-08-08] MEDS: MIRTAZAPINE 15 MG TAB PO SCH (20:42)
[2019-08-09] MEDS: LEVOTHYROXINE 50 MCG TAB PO SCH (06:24)
[2019-08-09 06:52] VITALS: TEMP 98
[2019-08-09] MEDS: NICOTINE 14MG/24HR PATCH TRANSDERM SCH (08:12)
--- NOTE | 2019-08-09 12:04 | P.PN ---
Progress Note - Text Interval history: The patient is found in group he follows me to an interview room. He indicates that he is looking forward to being discharged tomorrow. He states he has several things that he needs to do. We discussed having him write a schedule. He indicates he has been attending some groups. [facility]etite stable. He has no questions or concerns regarding his psychotropic medication. The patient is alert he is dressed in his own clothing hygiene grooming adequate. Speech is fluent spontaneous nonpressured. He reports no suicidal ideation intent or plan. He reports no auditory or visual hallucinations or any specific delusions. He demonstrates no evidence of psychosis. He demonstrates no tangential thinking loose associations or flight of ideas he does not appear hypomanic or manic. Insight and judgment improving. He demonstrates no verbal or physical aggressiveness. He demonstrates future oriented thinking in de scribing the tasks he needs to complete tomorrow upon discharge. Affect is more appropriately expressive. Plan: The patient will continue on his current psychotropic medication. He is encouraged to continue participating in the milieu. We will monitor him for safety. Vital signs reviewed. If he remains chronically stable we will consider discharging him tomorrow.
[2019-08-09] MEDS: QUEtiapine 100 MG TAB PO SCH (20:46)
[2019-08-09] MEDS: MIRTAZAPINE 15 MG TAB PO SCH (20:46)
[2019-08-09 21:51] VITALS: BMI 23.3
[2019-08-10] MEDS: LEVOTHYROXINE 50 MCG TAB PO SCH (06:26)
[2019-08-10 06:56] VITALS: BP 100/63; PULSE 79
[2019-08-10] MEDS: NICOTINE 14MG/24HR PATCH TRANSDERM SCH (08:58)
--- NOTE | 2019-08-10 11:06 | P.DS ---
Providers Date of admission: 07/31/19 21:56 Expected date of discharge: 08/10/19 Attending physician: Mat Purdy Consults: 07/31/19 22:07 Consult Physician Routine Consulting Provider: Deshaun Velazquez Consult Reason/Comments: medical management Do you want consulting provider notified?: Yes Primary care physician: Deshaun Velazquez - Discharge Diagnosis(es) (1) Major depressive disorder, recurrent severe without psychotic features Current Visit: Yes Status: Acute Priority: High (2) Alcohol use disorder, severe, dependence Current Visit: Yes Status: Acute Priority: High Hospital Course: Brief summary admission note: This patient is a 59-year-old male who was admitted to the mental health unit through the emergency room with suicidal ideation. He had reported feeling hopeless and worthless and sad. He considered hanging himself. He had been evicted from his apartment and was living in the [facility] for the last 4-5 days. He had been drinking alcohol excessively. He had stopped taking his psychiatric medicine. For full details please refer to the psychiatric evaluation dated 08/01/2019. Summary of hospital course: The patient was admitted to the mental health unit voluntarily. He was initially evaluated by Dr. Cruz. He was restarted on Remeron and Seroquel. He was seen by internal medicine for routine history and physical exam. Social work met with the patient several times to complete a psychosocial assessment and begin discharge planning. Liaisons from [facility] have met with him regarding discharge planning. He has significant concern as to where he will stay upon discharge and [facility] is trying to assist him in locating an apartment. He may require temporary fci placement again until a appropriate placement is found. The patient attended groups he demonstrated no agitated behavior. He reported a progressive improvement of symptoms while here. He is demonstrating future oriented thinking. He is able to spontaneously describe a series of tasks that he would like to complete upon discharge. Mental status exam: The patient is alert he is demonstrating improved hygiene grooming. Eye contact is appropriate. Speech is fluent spontaneous nonpressured. He reports his mood is better he is reporting no hopelessness thinking no suicidal ideation intent or plan. He is reporting no homicidal ideation intent or plan. He reports no auditory or visual hallucinations or any specific delusions. There is no observed evidence of psychosis. He demonstrates no tangential thinking loose associations or flight of ideas. He does not appear to be hypomanic or manic. Insight and judgment have improved. He demonstrates no verbal or physical aggressiveness. He is oriented to person place and date. Impressions 1. Major depressive disorder recurrent severe without psychosis, alcohol use disorder severe Plan: The patient will be discharged mental health unit today. The liaisons with [facility] are working with him to assist in finding placement. He may need to attend the homeless [facility] briefly until an apartment is found. He will continue on Remeron 15 mg at bedtime Seroquel 100 mg at bedtime. He is instructed to abstain from any use of alcohol marijuana or illicit drugs. We discussed the use of the substances will provoke mood symp toms and elevate his safety risk. He does not wish to attend inpatient chemical dependency treatment. He does not wish to take any medication at this time for his alcohol use such as Antabuse or naltrexone. At this time there is no imminent safety risk he is appropriate for transition back to outpatient care. He is instructed to return to the hospital with any acute safety concerns. Patient Condition at Discharge: Stable Plan - Discharge Summary Discharge Rx Participant: No New Discharge Prescriptions: New Nicotine 14Mg/24Hr Patch [Habitrol] 1 patch TRANSDERM DAILY #14 patch Mirtazapine [Remeron] 15 mg PO HS #30 tab QUEtiapine [SEROquel] 100 mg PO HS #30 tab Continue Ergocalciferol [Vitamin D2 (DRISDOL)] 50,000 unit PO FR Levothyroxine Sodium [Synthroid] 50 mcg PO DAILY #30 tab Discharge Medication List Ergocalciferol [Vitamin D2 (DRISDOL)] 50,000 unit PO FR 06/08/19 [History] Levothyroxine Sodium [Synthroid] 50 mcg PO DAILY #30 tab 08/10/19 [Rx] Mirtazapine [Remeron] 15 mg PO HS #30 tab 08/10/19 [Rx] Nicotine 14Mg/24Hr Patch [Habitrol] 1 patch TRANSDERM DAILY #14 patch 08/10/19 [Rx] QUEtiapine [SEROquel] 100 mg PO HS #30 tab 08/10/19 [Rx] Follow up Appointment(s)/Referral(s): Deshaun Velazquez MD [Primary Care Provider] - 1-2 days Patient Instructions/Handouts: Suicide Prevention (DC) Activity/Diet/Wound Care/Special Instructions: Activity and diet as tolerated. No guns or weapons in the home. Refrain from alcohol and street drugs not prescribed by your physician. If in need of medication refills, please go to your primary care physician, or to your out patient psychiatric provider. Please take all medications as prescribed, and attend all after care appointments as scheduled. If in crisis, please call , or go the nearest ER for an evaluation.
== END 2019-08-10 13:00 | disposition home or self-care (01) | DRG 885 ==
LOC: EC 14:51 → 3MHU 21:56
PROVIDERS: ADMIT Psychiatry & Neurology Psychiatry; ATTEND Psychiatry & Neurology Psychiatry
DX: F33.2 Major depressive disorder, recurrent severe without psychotic features (principal); R45.851 Suicidal ideations; H44.002 Unspecified purulent endophthalmitis, left eye; F64.1 Dual role transvestism; F17.210 Nicotine dependence, cigarettes, uncomplicated; F17.290 Nicotine dependence, other tobacco product, uncomplicated; F10.20 Alcohol dependence, uncomplicated; G40.909 Epilepsy, unspecified, not intractable, without status epilepticus; G47.00 Insomnia, unspecified; Z59.0 Homelessness; Z79.890 Hormone replacement therapy; T43.96XA Underdosing of unspecified psychotropic drug, initial encounter; Z91.128 Patient's intentional underdosing of medication regimen for other reason; Z88.8 Allergy status to other drugs, medicaments and biological substances; D53.9 Nutritional anemia, unspecified; Z59.9 Problem related to housing and economic circumstances, unspecified
CPT/HCPCS: 80053; 80061; 80306; 81003; 82075; 83036; 84439; 84443; 85025; 99285

== ENCOUNTER 2019-08-23 20:03 | Observation (INO) | payer MEDICARE, OTHER ==
[2019-08-23] MEDS ORDERED: SODIUM CHLORIDE 0.9% 1,000 ML IV STA (20:08)
--- NOTE | 2019-08-23 20:24 | ED ---
Alcohol HPI - General Stated Complaint: ETOH,Mental Health Time Seen by Provider: 08/23/19 20:03 Source: EMS, RN notes reviewed, old records reviewed - History of Present Illness Initial Comments: This is a 59-year-old male history of alcoholism as well as depression and bipolar disorder who was brought in by EMS after he was found sitting on a local street corner very lethargic with slurred speech and minimal responsiveness. He did appear to be intoxicated. No trauma reported. He was transported here for evaluation. MD Complaint: alcohol intoxication Last Drink: unknown - Related Data Home Medications Medication Instructions Recorded Confirmed Ergocalciferol [Vitamin D2 50,000 unit PO FR 06/08/19 08/23/19 (DRISDOL)] Previous Rx's Medication Instructions Recorded Levothyroxine Sodium [Synthroid] 50 mcg PO DAILY #30 tab 08/10/19 Mirtazapine [Remeron] 15 mg PO HS #30 tab 08/10/19 Nicotine 14Mg/24Hr Patch [Habitrol] 1 patch TRANSDERM DAILY #14 patch 08/10/19 QUEtiapine [SEROquel] 100 mg PO HS #30 tab 08/10/19 Allergies Allergy/AdvReac Type Severity Reaction Status Date / Time ziprasidone HCl [From Geodon] AdvReac Unknown Pt states Verified 08/23/19 20:28 geodon over sedates him. ziprasidone mesylate AdvReac Pt. states Verified 08/23/19 20:28 [From Geodon] Geodon makes him excessively sedated Review of Systems ROS Statement: Those systems with pertinent positive or pertinent negative responses have been documented in the HPI. ROS Other: All systems not noted in ROS Statement are negative. Limitations: ROS unobtainable due to patients medical condition Past Medical History Past Medical History: Seizure Disorder Additional Past Medical History / Comment(s): alcohol abuse History of Any Multi-Drug Resistant Organisms: None Reported Past Surgical History: No Surgical Hx Reported Additional Past Surgical History / Comment(s): eyelid sx Past Anesthesia/Blood Transfusion Reactions: No Reported Reaction Past Psychological History: Bipolar Smoking Status: Current every day smoker Past Alcohol Use History: Abuse, Daily, Heavy Additional Past Alcohol Use History / Comment(s): drinks 1/2 gallon daily Past Drug Use History: None Reported Additional Drug Use History / Comment(s): Pt denies any IV drug use - Past Family History Father Family Medical History: No Reported History Mother Family Medical History: Unable to Obtain Additional Family Medical History / Comment(s): Pt did not want to disclose General Exam - General Exam Comments Initial Comments: This is a well-developed appearing male who is awake but lethargic with the smell of alcohol conjoiners on his breath General appearance: in no apparent distress, lethargic Head exam: Present: atraumatic, normocephalic, normal inspection Eye exam: Present: normal appearance, PERRL, EOMI. Absent: scleral icterus, conjunctival injection, periorbital swelling ENT exam: Present: normal exam, mucous membranes moist Neck exam: Present: normal inspection, full ROM, other (No stridor JVD or bruits). Absent: tenderness, meningismus, lymphadenopathy Respiratory exam: Present: normal lung sounds bilaterally. Absent: respiratory distress, wheezes, rales, rhonchi, stridor Cardiovascular Exam: Present: regular rate, normal rhythm, normal heart sounds. Absent: systolic murmur, diastolic murmur, rubs, gallop, clicks GI/Abdominal exam: Present: soft, normal bowel sounds. Absent: distended, tenderness, guarding, rebound, rigid Rectal exam: Present: deferred Extremities exam: Present: normal inspection, full ROM, normal capillary refill. Absent: tenderness, pedal edema, joint swelling, calf tenderness Back exam: Present: normal inspection Neurological exam: Present: alert, altered, CN II-XII intact. Absent: motor sensory deficit Psychiatric exam: Present: normal mood, flat affect Skin exam: Present: warm, dry, intact, normal color. Absent: rash Course Vital Signs 08/23/19 20:09 Temperature 96.7 F L Pulse Rate 111 H Respiratory 17 Rate Blood Pressure 120/78 O2 Sat by Pulse 96 Oximetry Medical Decision Making - Medical Decision Making The patient has rested comfortably in emergency department his alcohol level is 350 mg/dL. I did discuss the case with Dr. Velazquez. Patient will be admitted for treatment of alcohol intoxication and pending withdrawal. - Lab Data Result diagrams: 08/23/19 20:41 08/23/19 20:41 Lab Results 08/23/19 08/23/19 08/23/19 Range/Units 20:41 20:41 21:15 WBC 8.3 (3.8-10.6) k/uL RBC 3.70 L (4.30-5.90) m/uL Hgb 13.4 (13.0-17.5) gm/dL Hct 39.7 (39.0-53.0) % MCV 107.4 H (80.0-100.0) fL MCH 36.2 H (25.0-35.0) pg MCHC 33.7 (31.0-37.0) g/dL RDW 14.8 (11.5-15.5) % Plt Count 286 (150-450) k/uL Neutrophils % (Manual) 72 % Lymphocytes % (Manual) 20 % Monocytes % (Manual) 7 % Eosinophils % (Manual) 1 % Neutrophils # (Manual) 5.98 (1.3-7.7) k/uL Lymphocytes # (Manual) 1.66 (1.0-4.8) k/uL Monocytes # (Manual) 0.58 (0-1.0) k/uL Eosinophils # (Manual) 0.08 (0-0.7) k/uL Nucleated RBCs 0 (0-0) /100 WBC Manual Slide Review Performed Macrocytosis Moderate Sodium 140 (137-145) mmol/L Potassium 3.7 (3.5-5.1) mmol/L Chloride 103 (98-107) mmol/L Carbon Dioxide 22 (22-30) mmol/L Anion Gap 15 mmol/L BUN 13 (9-20) mg/dL Creatinine 0.70 (0.66-1.25) mg/dL Est GFR (CKD-EPI)AfAm >90 (>60 ml/min/1.73 sqM) Est GFR (CKD-EPI)NonAf >90 (>60 ml/min/1.73 sqM) Glucose 93 (74-99) mg/dL Calcium 9.2 (8.4-10.2) mg/dL Magnesium 1.7 (1.6-2.3) mg/dL Total Bilirubin 0.4 (0.2-1.3) mg/dL AST 19 (17-59) U/L ALT 9 L (21-72) U/L Alkaline Phosphatase 130 H (38-126) U/L Ammonia <9 (<30) umol/L Total Protein 7.3 (6.3-8.2) g/dL Albumin 4.2 (3.5-5.0) g/dL Lipase 325 H (23-300) U/L Serum Alcohol 315 H* mg/dL Disposition Clinical Impression: Alcohol intoxication, History of depression Disposition: ADMITTED IP TO THIS HOSP Condition: Fair Referrals: Deshaun Velazquez MD [Primary Care Provider] - 1-2 days
[2019-08-23] MEDS ORDERED: SODIUM CHLORIDE 0.9% 1,000 ML with MVI, ADULT NO.4 WITH VIT K 10 ML, THIAMINE 100 MG, F... IV ONE ×4 (20:30)
[2019-08-23 21:11] LABS: HCT 39.7 % (39.0-53.0); HGB 13.4 gm/dL (13.0-17.5); MCH 36.2 pg (25.0-35.0); MCHC 33.7 g/dL (31.0-37.0); MCV 107.4 fL (80.0-100.0); Macrocytosis Moderate; Mean Platelet Volume 6.4; Platelet Count 286 k/uL (150-450); RDW 14.8 % (11.5-15.5); WBC 8.3 k/uL (3.8-10.6)
[2019-08-23 21:15] LABS: ALT 9 U/L (21-72); AST 19 U/L (17-59); African American GFR (CKD) >90 (>60 ml/min/1.73 sqM); Albumin 4.2 g/dL (3.5-5.0); Alkaline Phosphatase 130 U/L (38-126); Anion Gap 15 mmol/L; Blood Urea Nitrogen 13 mg/dL (9-20); Calcium 9.2 mg/dL (8.4-10.2); Carbon Dioxide 22 mmol/L (22-30); Chloride 103 mmol/L (98-107); Glucose 93 mg/dL (74-99); Magnesium 1.7 mg/dL (1.6-2.3); Non-African American GFR(CKD) >90 (>60 ml/min/1.73 sqM); Potassium 3.7 mmol/L (3.5-5.1); Sodium 140 mmol/L (137-145); Total Bilirubin 0.4 mg/dL (0.2-1.3); Total Protein 7.3 g/dL (6.3-8.2)
--- NOTE | 2019-08-23 21:42 | XR ---
EXAMINATION TYPE: XR chest 1V portable DATE OF EXAM: 08/23/2019 COMPARISON: 04/23/2011 HISTORY: Chest pain left there is a TECHNIQUE: Single frontal view of the chest is obtained. FINDINGS: There is no heart failure nor confluent pneumonic infiltrate. Costophrenic angles are navi r. There are no hilar masses. Bony thorax appears to show old left clavicle fracture. IMPRESSION: No active cardiopulmonary disease. No change.
[2019-08-23 21:47] LABS: Eosinophils # (M) 0.08 k/uL (0-0.7); Lymphocytes # (M) 1.66 k/uL (1.0-4.8); Monocytes # (M) 0.58 k/uL (0-1.0); Neutrophils # (M) 5.98 k/uL (1.3-7.7); Neutrophils % (M) 72 %; Nucleated Red Blood Cells 0 /100 WBC (0-0); Total Cells Counted 100
[2019-08-23 21:48] LABS: Alcohol 315 mg/dL
[2019-08-23] MEDS ORDERED: NALOXONE 0.4 MG/ML 1 ML VIAL IV PRN (22:18)
[2019-08-23] MEDS ORDERED: LORazepam 2 MG/ML INJ IV PRN ×3 (22:21)
[2019-08-23] MEDS ORDERED: THIAMINE 100 MG/ML 2 ML VIAL IM STA (22:21)
[2019-08-24 02:24] LABS: Glucose,Whole Blood 99 mg/dL (75-99)
[2019-08-24] MEDS: SODIUM CHLORIDE 0.9% 1,000 ML IV SCH ×3 (04:11→20:08)
[2019-08-24] MEDS: LEVOTHYROXINE 50 MCG TAB PO SCH (05:34)
[2019-08-24] MEDS: NICOTINE 14MG/24HR PATCH TRANSDERM SCH (07:16)
[2019-08-24 07:28] LABS: Glucose,Whole Blood 90 mg/dL (75-99)
[2019-08-24 12:12] LABS: Glucose,Whole Blood 99 mg/dL (75-99)
--- NOTE | 2019-08-24 12:12 | HP ---
HISTORY AND PHYSICAL CHIEF COMPLAINT: Acute alcohol intoxication. HISTORY OF PRESENT ILLNESS: This is another admission for this 59-year-old male with major depression and alcoholism. He was brought into the emergency room intoxicated and was admitted. He is a frequent psychiatric patient, but generally not extremely compliant or cooperative. REVIEW OF SYSTEMS: He denies seizures, blackouts, chest pain, shortness of breath, cough, hemoptysis, heart disease, orthopnea, PND, abdominal pain, hematemesis, nausea, vomiting, melena, hematochezia, renal failure, dysuria, frequency, urgency, hematuria, diabetes, etc. Past medical history, family history, personal and social histories reveal that he is ALLERGIC to GEODON. He is probably not taking any medications at this time. He does smoke and drinks heavily. PHYSICAL EXAMINATION: Blood pressure 110/64 with a pulse of 92, respirations of 36 and he is afebrile. GENERAL: He appeared to be slightly lethargic and in no acute distress. Skin color is normal, skin is warm and dry. Lymph nodes are not enlarged. Head, ears, eyes, nose, mouth, and throat were unremarkable except for the left eye where he had ptosis and chronic conjunctivitis. Neck is supple. Neck veins not distended. Chest is clear. Cardiac exam demonstrates sinus tachycardia and the abdomen is soft, nontender without visceromegaly or masses. Bowel sounds are present. Extremities normal, neurologically he is intact. IMPRESSION: 1. Acute alcohol intoxication. 2. Chronic alcoholism. 3. Impending delirium tremens. 4. Major depression. 5. Bipolar disorder and schizophrenia. PLAN: 1. Bed rest. 2. IV fluids. 3. CIWA protocol. MMODL / IJN: [id number] /
--- NOTE | 2019-08-24 12:22 | PN ---
PROGRESS NOTE DATE OF SERVICE: 08/24/2019 CHIEF COMPLAINT: Acute alcohol intoxication and impending DTs. HISTORY OF PRESENT ILLNESS: This gentleman is still quite lethargic today. He has had no seizures. He is awake and alert. He has no complaints. PHYSICAL EXAM: Left eye ptosis and chronic conjunctivitis is unchanged. His chest is clear. Cardiac exam is normal. Abdomen is soft, nontender. Neurologically, he seems to be intact and he has not gone into DTs at this point. IMPRESSION: 1. Acute alcohol intoxication. 2. Chronic alcoholism. 3. Impending delirium tremens. 4. Bipolar depression. 5. Schizophrenia. PLAN: Continue with IV fluids and CIWA protocol. MMMATEOL / SANCHON: [id number] /
[2019-08-24] MEDS: THIAMINE 100 MG TAB PO SCH (16:33)
[2019-08-24 16:59] LABS: Amphetamine Screen,Urine Not Detected (NotDetected); Barbiturate Screen,Urine Not Detected (NotDetected); Benzodiazepines Screen,Urine Not Detected (NotDetected); Cocaine Screen,Urine Not Detected (NotDetected); Methadone Screen, Urine Not Detected (NotDetected); Opiate Screen,Urine Not Detected (NotDetected); Oxycodone Screen, Urine Not Detected (NotDetected); Phencyclidine Screen,Urine Not Detected (NotDetected); Tricyclic Antidepressant,Urine Not Detected (NotDetected); Urn Cannabinoid Scrn Not Detected (NotDetected)
[2019-08-24] MEDS ORDERED: MIRTAZAPINE 15 MG TAB PO SCH (21:00)
[2019-08-24] MEDS ORDERED: QUEtiapine 100 MG TAB PO SCH (21:00)
[2019-08-25] MEDS: LEVOTHYROXINE 50 MCG TAB PO SCH (05:29)
[2019-08-25] MEDS: THIAMINE 100 MG TAB PO SCH (08:57)
[2019-08-25] MEDS: NICOTINE 14MG/24HR PATCH TRANSDERM SCH (08:58)
[2019-08-25] MEDS: SODIUM CHLORIDE 0.9% 1,000 ML IV SCH (11:34)
[2019-08-25 15:07] VITALS: BP 119/71; PULSE 112; RESP 16; TEMP 98.7
--- NOTE | 2019-08-25 17:59 | DS ---
DISCHARGE SUMMARY CHIEF COMPLAINT: Acute alcohol intoxication. HISTORY OF PRESENT ILLNESS AND PHYSICAL EXAMINATION: Details of this man's history and physical can be found in the initial workup. LABORATORY STUDIES: While he was in the hospital he had laboratory studies, details of which can be found in the laboratory section of his chart. COURSE IN THE HOSPITAL: After admission he was placed on bedrest, started on intravenous fluids and CIWA protocol. He did not have difficulty with DTs. He is stable and doing well. It was felt that he could go home on August 25. FINAL DIAGNOSES: 1. Acute alcohol intoxication. 2. Chronic alcoholism. 3. Bipolar depression and schizophrenia. OPERATIONS: None. CONSULTATIONS: None. He is improved. MMODL / IJN: [id number] /
[2019-08-28] MEDS ORDERED: ERGOCALCIFEROL 50,000 UNIT CAP PO SCH (09:00)
== END 2019-08-25 17:06 | disposition home or self-care (01) ==
LOC: EC 20:03 → 4MS4W 22:22
PROVIDERS: ADMIT Family Medicine; ATTEND Family Medicine
DX: F10.229 Alcohol dependence with intoxication, unspecified (principal); F31.9 Bipolar disorder, unspecified; F20.9 Schizophrenia, unspecified; G40.909 Epilepsy, unspecified, not intractable, without status epilepticus; Y90.8 Blood alcohol level of 240 mg/100 ml or more; F17.200 Nicotine dependence, unspecified, uncomplicated; H10.402 Unspecified chronic conjunctivitis, left eye; Z79.890 Hormone replacement therapy; Z79.899 Other long term (current) drug therapy; Z88.8 Allergy status to other drugs, medicaments and biological substances
CPT/HCPCS: 96366 ×2; 96365; 99285; 36415; 80053; 82140; 83690; 83735; 85025; 80306; 71045; G0378 ×3; G0480; S4990 ×2; J3411; 80320

== ENCOUNTER 2020-02-16 22:03 | Emergency (ER) | payer MEDICARE, OTHER ==
[2020-02-16 22:16] VITALS: TEMP 97.9
[2020-02-16] MEDS ORDERED: SODIUM CHLORIDE 0.9% 1,000 ML IV STA (22:22)
[2020-02-16 22:49] LABS: Glucose,Whole Blood 109 mg/dL (75-99)
--- NOTE | 2020-02-16 23:00 | ED ---
General Adult HPI - General Source: EMS, RN notes reviewed, old records reviewed Mode of arrival: EMS Limitations: no limitations <Marshall Weinstein - Last Filed: 02/17/20 02:01> <Arpit Evans - Last Filed: 02/17/20 03:52> - General Chief complaint: Alcohol Stated complaint: ETOH Time Seen by Provider: 02/16/20 22:05 - History of Present Illness Initial comments: 60-year-old female patient presents history alcohol abuse stress ED for cheif complaint of alcohol intoxication. Patient was reportedly sitting on a park bench and EMS was called for concern of his welfare. Patient reports that he drank approximately a half gallon of liquor today. States that he did have a very mild fall over onto his left side. Denies any trauma to head or neck. Denies any physical complaints. Systemic: Pt denies fatigue, fever/chills, rash. Pt denies weakness, night sweats, weight loss. Neuro: Pt denies headache, visual disturbances, syncope or pre-syncope. HEENT: Pt denies ocular discharge or irritation, otalgia, rhinorrhea, pharyngitis or notable lymphadenopathy. Cardiopulmonary: Pt denies chest pain, SOB, heart palpitations, dyspnea on exertion. Abdominal/GI: Pt denies abdominal pain, n/v/d. : Pt denies dysuria, burning w/ urination, frequency/urgency. Denies new onset urinary or bowel incontinence. MSK: Pt denies myalgia, loss of strength or function in extremities. Neuro: Pt denies new onset weakness, paresthesias. (Marshall Weinstein) - Related Data Home Medications Medication Instructions Recorded Confirmed Ergocalciferol [Vitamin D2 50,000 unit PO FR 06/08/19 08/23/19 (DRISDOL)] Previous Rx's Medication Instructions Recorded Levothyroxine Sodium [Synthroid] 50 mcg PO DAILY #30 tab 08/10/19 Mirtazapine [Remeron] 15 mg PO HS #30 tab 08/10/19 Nicotine 14Mg/24Hr Patch [Habitrol] 1 patch TRANSDERM DAILY #14 patch 08/10/19 QUEtiapine [SEROquel] 100 mg PO HS #30 tab 08/10/19 Thiamine [Vitamin B-1] 100 mg PO BID-W/MEALS #60 tab 08/25/19 Allergies Allergy/AdvReac Type Severity Reaction Status Date / Time ziprasidone HCl [From Geodon] AdvReac Unknown Pt states Verified 08/23/19 20:28 geodon over sedates him. ziprasidone mesylate AdvReac Pt. states Verified 08/23/19 20:28 [From Geodon] Geodon makes him excessively sedated Review of Systems ROS Other: All systems not noted in ROS Statement are negative. <Marshall Weinstein - Last Filed: 02/17/20 02:01> ROS Other: All systems not noted in ROS Statement are negative. <Arpit Evans - Last Filed: 02/17/20 03:52> ROS Statement: Those systems with pertinent positive or pertinent negative responses have been documented in the HPI. Past Medical History Past Medical History: Seizure Disorder Additional Past Medical History / Comment(s): alcohol abuse History of Any Multi-Drug Resistant Organisms: None Reported Past Surgical History: No Surgical Hx Reported Additional Past Surgical History / Comment(s): eyelid sx Past Anesthesia/Blood Transfusion Reactions: No Reported Reaction Past Psychological History: Bipolar Smoking Status: Current every day smoker Past Alcohol Use History: Abuse, Daily, Heavy Past Drug Use History: None Reported - Past Family History Father Family Medical History: No Reported History Mother Family Medical History: Unable to Obtain Additional Family Medical History / Comment(s): Pt did not want to disclose <Marshall Weinstein - Last Filed: 02/17/20 02:01> General Exam Limitations: no limitations <Marshall Weinstein - Last Filed: 02/17/20 02:01> - General Exam Comments Initial Comments: Constitutional: NAD, AOX3, Pt has pleasant affect. HEENT: NC/AT, trachea midline, neck supple, no lymphadenopathy. Posterior pharynx non erythematous, without exudates. External ears appear normal, without discharge. Mucous membranes moist. Eyes PERRLA, EOM intact. There is no scleral icterus. No pallor noted. Cardiopulmonary: RRR, no murmurs, rubs or gallops, no JVD noted. Lungs CTAB in anterior and posterior bob. No peripheral edema. Abdominal exam: Abdomen soft and non-distended. Abdomen non-tender to palpation in all 4 quadrants. Bowel sounds active in LLQ. No hepatosplenomegaly. No ecchymosis Neuro: CN II-XII intact. No nuchal rigidity. No raccon eyes, no dickson sign, no hemotympanum. No cervical spinal tenderness. MSK: No posterior calf tenderness bilaterally, homans sign negative bilaterally. Posterior tibialis and radial pulse +2 bilaterally. Sensation intact in upper and lower extremities. Full active ROM in upper and lower extremities, 5/5 stregnth. (Marshall Weinstein) Course Vital Signs 02/16/20 02/17/20 22:06 02:13 Temperature 97.9 F Pulse Rate 105 H 90 Respiratory 20 18 Rate Blood Pressure 113/96 118/82 O2 Sat by Pulse 96 96 Oximetry Medical Decision Making - Lab Data Result diagrams: 02/16/20 22:50 02/16/20 22:50 <Marshall Weinstein - Last Filed: 02/17/20 02:01> - Lab Data Result diagrams: 02/16/20 22:50 02/16/20 22:50 <Arpit Evans - Last Filed: 02/17/20 03:52> - Medical Decision Making 60-year-old male patient history of alcohol abuse NC throughout: Intoxication. Patient will call was found to be elevated. Physical exam did not display acute pathology. Patient not be sober until 7 AM, signed out to Dr. Booth (Marshall Weinstein) - Lab Data Lab Results 02/16/20 02/16/20 02/16/20 Range/Units 22:45 22:50 22:50 WBC 2.6 L (3.8-10.6) k/uL RBC 3.87 L (4.30-5.90) m/uL Hgb 14.2 (13.0-17.5) gm/dL Hct 43.2 (39.0-53.0) % MCV 111.6 H (80.0-100.0) fL MCH 36.6 H (25.0-35.0) pg MCHC 32.8 (31.0-37.0) g/dL RDW 14.5 (11.5-15.5) % Plt Count 115 L (150-450) k/uL Neutrophils % (Manual) 42 % Band Neutrophils % 6 % Lymphocytes % (Manual) 38 % Monocytes % (Manual) 14 % Neutrophils # (Manual) 1.20 L (1.3-7.7) k/uL Lymphocytes # (Manual) 0.99 L (1.0-4.8) k/uL Monocytes # (Manual) 0.36 (0-1.0) k/uL Nucleated RBCs 0 (0-0) /100 WBC Manual Slide Review Performed Anisocytosis (manual) Present Macrocytosis Marked A Target Cells Present Sodium 138 (137-145) mmol/L Potassium 4.2 (3.5-5.1) mmol/L Chloride 98 (98-107) mmol/L Carbon Dioxide 19 L (22-30) mmol/L Anion Gap 21 mmol/L BUN 16 (9-20) mg/dL Creatinine 0.68 (0.66-1.25) mg/dL Est GFR (CKD-EPI)AfAm >90 (>60 ml/min/1.73 sqM) Est GFR (CKD-EPI)NonAf >90 (>60 ml/min/1.73 sqM) Glucose 96 (74-99) mg/dL POC Glucose (mg/dL) 109 H (75-99) mg/dL POC Glu Tooth Cutter Contact Wheel ID Aminah Arizmendi A Calcium 8.6 (8.4-10.2) mg/dL Total Bilirubin 0.5 (0.2-1.3) mg/dL AST 104 H (17-59) U/L ALT 51 H (4-49) U/L Alkaline Phosphatase 96 (38-126) U/L Total Protein 7.4 (6.3-8.2) g/dL Albumin 4.6 (3.5-5.0) g/dL Urine Color Urine Appearance (Clear) Urine pH (5.0-8.0) Ur Specific [place] (1.001-1.035) Urine Protein (Negative) Urine Glucose (UA) (Negative) Urine Ketones (Negative) Urine Blood (Negative) Urine Nitrite (Negative) Urine Bilirubin (Negative) Urine Urobilinogen (<2.0) mg/dL Ur Leukocyte Esterase (Negative) Urine RBC (0-5) /hpf Urine WBC (0-5) /hpf Hyaline Casts (0-2) /lpf Urine Mucus (None) /hpf Urine Opiates Screen (NotDetected) Ur Oxycodone Screen (NotDetected) Urine Methadone Screen (NotDetected) Ur Propoxyphene Screen (NotDetected) Ur Barbiturates Screen (NotDetected) U Tricyclic Antidepress (NotDetected) Ur Phencyclidine Scrn (NotDetected) Ur Amphetamines Screen (NotDetected) U Methamphetamines Scrn (NotDetected) U Benzodiazepines Scrn (NotDetected) Urine Cocaine Screen (NotDetected) U Marijuana (THC) Screen (NotDetected) Serum Alcohol 272 H* mg/dL 02/17/20 Range/Units 02:00 WBC (3.8-10.6) k/uL RBC (4.30-5.90) m/uL Hgb (13.0-17.5) gm/dL Hct (39.0-53.0) % MCV (80.0-100.0) fL MCH (25.0-35.0) pg MCHC (31.0-37.0) g/dL RDW (11.5-15.5) % Plt Count (150-450) k/uL Neutrophils % (Manual) % Band Neutrophils % % Lymphocytes % (Manual) % Monocytes % (Manual) % Neutrophils # (Manual) (1.3-7.7) k/uL Lymphocytes # (Manual) (1.0-4.8) k/uL Monocytes # (Manual) (0-1.0) k/uL Nucleated RBCs (0-0) /100 WBC Manual Slide Review Anisocytosis (manual) Macrocytosis Target Cells Sodium (137-145) mmol/L Potassium (3.5-5.1) mmol/L Chloride (98-107) mmol/L Carbon Dioxide (22-30) mmol/L Anion Gap mmol/L BUN (9-20) mg/dL Creatinine (0.66-1.25) mg/dL Est GFR (CKD-EPI)AfAm (>60 ml/min/1.73 sqM) Est GFR (CKD-EPI)NonAf (>60 ml/min/1.73 sqM) Glucose (74-99) mg/dL POC Glucose (mg/dL) (75-99) mg/dL POC Glu Tooth Cutter Contact Wheel ID Calcium (8.4-10.2) mg/dL Total Bilirubin (0.2-1.3) mg/dL AST (17-59) U/L ALT (4-49) U/L Alkaline Phosphatase (38-126) U/L Total Protein (6.3-8.2) g/dL Albumin (3.5-5.0) g/dL Urine Color Yellow Urine Appearance Clear (Clear) Urine pH 5.5 (5.0-8.0) Ur Specific [place] 1.025 (1.001-1.035) Urine Protein 1+ H (Negative) Urine Glucose (UA) Negative (Negative) Urine Ketones 3+ H (Negative) Urine Blood Negative (Negative) Urine Nitrite Negative (Negative) Urine Bilirubin Negative (Negative) Urine Urobilinogen <2.0 (<2.0) mg/dL Ur Leukocyte Esterase Negative (Negative) Urine RBC <1 (0-5) /hpf Urine WBC 1 (0-5) /hpf Hyaline Casts 11 H (0-2) /lpf Urine Mucus Occasional H (None) /hpf Urine Opiates Screen Not Detected (NotDetected) Ur Oxycodone Screen Not Detected (NotDetected) Urine Methadone Screen Not Detected (NotDetected) Ur Propoxyphene Screen Not Detected (NotDetected) Ur Barbiturates Screen Not Detected (NotDetected) U Tricyclic Antidepress Not Detected (NotDetected) Ur Phencyclidine Scrn Not Detected (NotDetected) Ur Amphetamines Screen Not Detected (NotDetected) U Methamphetamines Scrn Not Detected (NotDetected) U Benzodiazepines Scrn Not Detected (NotDetected) Urine Cocaine Screen Not Detected (NotDetected) U Marijuana (THC) Screen Not Detected (NotDetected) Serum Alcohol mg/dL Disposition <Marshall Weinsteni - Last Filed: 02/17/20 02:01> Is patient prescribed a controlled substance at d/c from ED?: No <Arpit Evans - Last Filed: 02/17/20 03:52> Clinical Impression: Alcohol intoxication Disposition: HOME SELF-CARE Condition: Good Instructions (If sedation given, give patient instructions): Alcohol Intoxication (ED) Referrals: Deshaun Velazquez MD [Primary Care Provider] - 1-2 days
[2020-02-16 23:14] LABS: HCT 43.2 % (39.0-53.0); HGB 14.2 gm/dL (13.0-17.5); MCH 36.6 pg (25.0-35.0); MCHC 32.8 g/dL (31.0-37.0); MCV 111.6 fL (80.0-100.0); Macrocytosis Marked; Mean Platelet Volume 8.7; Platelet Count 115 k/uL (150-450); RBC 3.87 m/uL (4.30-5.90); RDW 14.5 % (11.5-15.5); WBC 2.6 k/uL (3.8-10.6)
[2020-02-16 23:26] LABS: ALT 51 U/L (4-49); AST 104 U/L (17-59); African American GFR (CKD) >90 (>60 ml/min/1.73 sqM); Albumin 4.6 g/dL (3.5-5.0); Alkaline Phosphatase 96 U/L (38-126); Anion Gap 21 mmol/L; Blood Urea Nitrogen 16 mg/dL (9-20); Calcium 8.6 mg/dL (8.4-10.2); Carbon Dioxide 19 mmol/L (22-30); Chloride 98 mmol/L (98-107); Glucose 96 mg/dL (74-99); Non-African American GFR(CKD) >90 (>60 ml/min/1.73 sqM); Potassium 4.2 mmol/L (3.5-5.1); Sodium 138 mmol/L (137-145); Total Bilirubin 0.5 mg/dL (0.2-1.3); Total Protein 7.4 g/dL (6.3-8.2)
[2020-02-16 23:37] LABS: Alcohol 272 mg/dL
[2020-02-17 00:27] LABS: Anisocytosis (M) Present; Band Neutrophils % 6 %; Lymphocytes # (M) 0.99 k/uL (1.0-4.8); Monocytes # (M) 0.36 k/uL (0-1.0); Neutrophils % (M) 42 %; Nucleated Red Blood Cells 0 /100 WBC (0-0); Total Cells Counted 100
[2020-02-17 00:28] LABS: Target Cells Present
[2020-02-17 02:14] VITALS: RESP 18
[2020-02-17 02:18] LABS: Appearance,Urine Clear (Clear); Bilirubin,Urine Negative (Negative); Blood,Urine Negative (Negative); Color,Urine Yellow; Glucose,Urine (UA) Negative (Negative); Hyaline Casts,Urine 11 /lpf (0-2); Ketones,Urine 3+ (Negative); Leukocyte Esterase,Urine Negative (Negative); Mucus,Urine Occasional /hpf; Nitrite,Urine Negative (Negative); PH, Urine 5.5 (5.0-8.0); Protein,Urine 1+ (Negative); RBC,Urine <1 /hpf (0-5); Specific Gravity,Urine 1.025 (1.001-1.035); Urobilinogen,Urine <2.0 mg/dL (<2.0); WBC,Urine 1 /hpf (0-5)
[2020-02-17 02:35] LABS: Amphetamine Screen,Urine Not Detected (NotDetected); Barbiturate Screen,Urine Not Detected (NotDetected); Benzodiazepines Screen,Urine Not Detected (NotDetected); Cocaine Screen,Urine Not Detected (NotDetected); Methadone Screen, Urine Not Detected (NotDetected); Opiate Screen,Urine Not Detected (NotDetected); Oxycodone Screen, Urine Not Detected (NotDetected); Phencyclidine Screen,Urine Not Detected (NotDetected); Tricyclic Antidepressant,Urine Not Detected (NotDetected); Urn Cannabinoid Scrn Not Detected (NotDetected)
[2020-02-17 06:47] VITALS: BP 92/65; PULSE 85
== END 2020-02-17 07:03 | disposition home or self-care (01) ==
LOC: EC 22:03
DX: F10.129 Alcohol abuse with intoxication, unspecified (principal); F17.200 Nicotine dependence, unspecified, uncomplicated; Z88.8 Allergy status to other drugs, medicaments and biological substances
CPT/HCPCS: 99284 ×2; 96360 ×2; 96361 ×2; 82075; 36415; 80053; 85025; 81001; 80306; G0480; 80320

== ENCOUNTER 2020-03-10 12:34 | Inpatient (IN) | payer MEDICARE ==
--- NOTE | 2020-03-10 12:48 | ED ---
General Adult HPI - General Stated complaint: ETOH Time Seen by Provider: 03/10/20 12:36 Source: RN notes reviewed, old records reviewed - History of Present Illness Initial comments: 60-year-old male patient past medical history significant for alcohol use disorder presents to ED for ETOH intoxication. Patient reports that he was drinking heavily today. He was reportedly laying on the grass outside his house and neighbors called EMS. Patient denies any falls or trauma. Patient denies any other acute complaints at this time. Systemic: Pt denies fatigue, fever/chills, rash. Pt denies weakness, night sweats, weight loss. Neuro: Pt denies headache, visual disturbances, syncope or pre-syncope. HEENT: Pt denies ocular discharge or irritation, otalgia, rhinorrhea, pharyngitis or notable lymphadenopathy. Cardiopulmonary: Pt denies chest pain, SOB, heart palpitations, dyspnea on exertion. Abdominal/GI: Pt denies abdominal pain, n/v/d. : Pt denies dysuria, burning w/ urination, frequency/urgency. Denies new onset urinary or bowel incontinence. MSK: Pt denies myalgia, loss of strength or function in extremities. Neuro: Pt denies new onset weakness, paresthesias. - Related Data Home Medications Medication Instructions Recorded Confirmed Ergocalciferol [Vitamin D2 50,000 unit PO FR 06/08/19 08/23/19 (DRISDOL)] Previous Rx's Medication Instructions Recorded Levothyroxine Sodium [Synthroid] 50 mcg PO DAILY #30 tab 08/10/19 Mirtazapine [Remeron] 15 mg PO HS #30 tab 08/10/19 Nicotine 14Mg/24Hr Patch [Habitrol] 1 patch TRANSDERM DAILY #14 patch 08/10/19 QUEtiapine [SEROquel] 100 mg PO HS #30 tab 08/10/19 Thiamine [Vitamin B-1] 100 mg PO BID-W/MEALS #60 tab 08/25/19 Allergies Allergy/AdvReac Type Severity Reaction Status Date / Time ziprasidone HCl [From Geodon] AdvReac Unknown Pt states Verified 03/10/20 12:48 geodon over sedates him. ziprasidone mesylate AdvReac Pt. states Verified 03/10/20 12:48 [From Geodon] Geodon makes him excessively sedated Review of Systems ROS Statement: Those systems with pertinent positive or pertinent negative responses have been documented in the HPI. ROS Other: All systems not noted in ROS Statement are negative. Past Medical History Past Medical History: Seizure Disorder Additional Past Medical History / Comment(s): alcohol abuse History of Any Multi-Drug Resistant Organisms: None Reported Past Surgical History: No Surgical Hx Reported Additional Past Surgical History / Comment(s): eyelid sx Past Anesthesia/Blood Transfusion Reactions: No Reported Reaction Past Psychological History: Bipolar Smoking Status: Current every day smoker Past Alcohol Use History: Abuse, Daily, Heavy Past Drug Use History: None Reported - Past Family History Father Family Medical History: No Reported History Mother Family Medical History: Unable to Obtain Additional Family Medical History / Comment(s): Pt did not want to disclose General Exam - General Exam Comments Initial Comments: Constitutional: NAD, AOX3, Pt has pleasant affect. HEENT: NC/AT, trachea midline, neck supple, no lymphadenopathy. Posterior pharynx non erythematous, without exudates. External ears appear normal, without discharge. Mucous membranes moist. Eyes PERRLA, EOM intact. There is no scleral icterus. No pallor noted. Cardiopulmonary: RRR, no murmurs, rubs or gallops, no JVD noted. Lungs CTAB in anterior and posterior bob. No peripheral edema. Abdominal exam: Abdomen soft and non-distended. Abdomen non-tender to palpation in all 4 quadrants. Bowel sounds active in LLQ. No hepatosplenomegaly. No ecchymosis Neuro: CN II-XII grossly intact. No nuchal rigidity. No raccon eyes, no dickson sign, no hemotympanum. No cervical spinal tenderness. MSK: No posterior calf tenderness bilaterally, homans sign negative bilaterally. Posterior tibialis and radial pulse +2 bilaterally. Sensation intact in upper and lower extremities. Full active ROM in upper and lower extremities, 5/5 str egnth. Course Vital Signs 03/10/20 03/10/20 12:42 14:31 Temperature 97.8 F Pulse Rate 89 80 Respiratory 18 18 Rate Blood Pressure 111/77 98/65 O2 Sat by Pulse 93 L 100 Oximetry Medical Decision Making - Medical Decision Making 60-year-old male patient past medical history significant for alcohol use disorder presents to ED for ETOH intoxication. Patient reports that he was d rinking heavily today. He was reportedly laying on the grass outside his house and neighbors called EMS. Patient denies any falls or trauma. Patient denies any other acute complaints at this time. Patient vital signs are stable, afebrile. Physical exam did not display acute pathology. Laboratory investigations significant for serum alcohol of 312. Patient will be admitted for alcohol intoxication CIWA protocol started. Dr. Velazquez accepts this patient. - Lab Data Result diagrams: 03/10/20 13:05 03/10/20 13:05 Lab Results 03/10/20 03/10/20 03/10/20 Range/Units 13:05 13:05 16:44 WBC 4.0 (3.8-10.6) k/uL RBC 3.66 L (4.30-5.90) m/uL Hgb 13.7 (13.0-17.5) gm/dL Hct 41.7 (39.0-53.0) % MCV 113.8 H (80.0-100.0) fL MCH 37.5 H (25.0-35.0) pg MCHC 32.9 (31.0-37.0) g/dL RDW 15.8 H (11.5-15.5) % Plt Count 352 D (150-450) k/uL Neutrophils % (Manual) 61 % Band Neutrophils % 5 % Lymphocytes % (Manual) 21 % Monocytes % (Manual) 8 % Eosinophils % (Manual) 5 % Neutrophils # (Manual) 2.60 (1.3-7.7) k/uL Lymphocytes # (Manual) 0.84 L (1.0-4.8) k/uL Monocytes # (Manual) 0.32 (0-1.0) k/uL Eosinophils # (Manual) 0.20 (0-0.7) k/uL Nucleated RBCs 0 (0-0) /100 WBC Manual Slide Review Performed Poikilocytosis (manual Present Macrocytosis Marked A Sodium 139 (137-145) mmol/L Potassium 5.2 H (3.5-5.1) mmol/L Chloride 106 (98-107) mmol/L Carbon Dioxide 21 L (22-30) mmol/L Anion Gap 12 mmol/L BUN 12 (9-20) mg/dL Creatinine 0.69 (0.66-1.25) mg/dL Est GFR (CKD-EPI)AfAm >90 (>60 ml/min/1.73 sqM) Est GFR (CKD-EPI)NonAf >90 (>60 ml/min/1.73 sqM) Glucose 96 (74-99) mg/dL Calcium 8.5 (8.4-10.2) mg/dL Total Bilirubin 0.6 (0.2-1.3) mg/dL AST 66 H (17-59) U/L ALT 46 (4-49) U/L Alkaline Phosphatase 77 (38-126) U/L Total Protein 7.0 (6.3-8.2) g/dL Albumin 3.9 (3.5-5.0) g/dL Urine Color Yellow Urine Appearance Clear (Clear) Urine pH 5.0 (5.0-8.0) Ur Specific [place] 1.010 (1.001-1.035) Urine Protein Negative (Negative) Urine Glucose (UA) Negative (Negative) Urine Ketones Negative (Negative) Urine Blood Negative (Negative) Urine Nitrite Negative (Negative) Urine Bilirubin Negative (Negative) Urine Urobilinogen <2.0 (<2.0) mg/dL Ur Leukocyte Esterase Negative (Negative) Serum Alcohol 312 H* mg/dL Disposition Clinical Impression: Alcohol intoxication Disposition: ADMITTED IP TO THIS HOSP Condition: Fair Is patient prescribed a controlled substance at d/c from ED?: No Referrals: Deshaun Velazquez MD [Primary Care Provider] - 1-2 days
[2020-03-10] MEDS ORDERED: SODIUM CHLORIDE 0.9% 1,000 ML IV ONE (13:15)
[2020-03-10 13:31] LABS: HCT 41.7 % (39.0-53.0); HGB 13.7 gm/dL (13.0-17.5); MCH 37.5 pg (25.0-35.0); MCHC 32.9 g/dL (31.0-37.0); MCV 113.8 fL (80.0-100.0); Macrocytosis Marked; RBC 3.66 m/uL (4.30-5.90); RDW 15.8 % (11.5-15.5)
[2020-03-10 13:32] LABS: ALT 46 U/L (4-49); AST 66 U/L (17-59); African American GFR (CKD) >90 (>60 ml/min/1.73 sqM); Albumin 3.9 g/dL (3.5-5.0); Alkaline Phosphatase 77 U/L (38-126); Anion Gap 12 mmol/L; Blood Urea Nitrogen 12 mg/dL (9-20); Calcium 8.5 mg/dL (8.4-10.2); Carbon Dioxide 21 mmol/L (22-30); Chloride 106 mmol/L (98-107); Glucose 96 mg/dL (74-99); Non-African American GFR(CKD) >90 (>60 ml/min/1.73 sqM); Sodium 139 mmol/L (137-145); Total Bilirubin 0.6 mg/dL (0.2-1.3)
[2020-03-10 13:33] LABS: Platelet Count 352 k/uL (150-450)
[2020-03-10 13:42] LABS: Band Neutrophils % 5 %; Lymphocytes # (M) 0.84 k/uL (1.0-4.8); Monocytes # (M) 0.32 k/uL (0-1.0); Neutrophils % (M) 61 %; Nucleated Red Blood Cells 0 /100 WBC (0-0); Total Cells Counted 100
[2020-03-10 13:43] LABS: Poikilocytosis (M) Present
[2020-03-10 13:54] LABS: Alcohol 312 mg/dL; Potassium 5.2 mmol/L (3.5-5.1)
[2020-03-10] MEDS ORDERED: LORazepam 2 MG/ML INJ IV PRN ×2 (16:16)
[2020-03-10 16:47] LABS: Appearance,Urine Clear (Clear); Bilirubin,Urine Negative (Negative); Blood,Urine Negative (Negative); Color,Urine Yellow; Glucose,Urine (UA) Negative (Negative); Ketones,Urine Negative (Negative); Leukocyte Esterase,Urine Negative (Negative); Nitrite,Urine Negative (Negative); Protein,Urine Negative (Negative); Urobilinogen,Urine <2.0 mg/dL (<2.0)
[2020-03-10] MEDS ORDERED: NALOXONE 0.4 MG/ML 1 ML VIAL IV PRN (17:00)
[2020-03-10] MEDS: THIAMINE 100 MG TAB PO SCH (21:18)
[2020-03-11 03:34] LABS: Urine Alcohol Positive (Negative); Urine Barbiturate Negative (Negative); Urine Cocaine Negative (Negative); Urine Methadone Negative (Negative); Urine Opiates Negative (Negative); Urine Phencyclidine Negative (Negative)
--- NOTE | 2020-03-11 16:52 | HP ---
HISTORY AND PHYSICAL CHIEF COMPLAINT: Acute alcohol intoxication. HISTORY OF PRESENT ILLNESS: This is another admission for this 60-year-old chronic alcoholic. He also has significant psychiatric problems. Lately, he has apparently not been seeing his psychiatrist and has not been on any medication. He presented to the emergency room intoxicated. REVIEW OF SYSTEMS: He denies any neurologic problems, difficulty with vision in the right eye, chest pain, shortness of breath, abdominal pain, hematemesis, melena, hematochezia, jaundice, etc. He has had no dysuria, frequency, urgency, etc. Past medical history, family history, personal and social histories are unremarkable and noncontributory, otherwise. He does smoke. PHYSICAL EXAMINATION: Blood pressure is 144/87 with a pulse of 68, respirations of 33, and he is afebrile. In general, he appeared to be somewhat disheveled. Skin was dry and lymph nodes not enlarged. There is no jaundice. Head, ears, eyes, nose, mouth, and throat were unremarkable except for the left eye where he has a chronic inflammatory process and a ptosis. Right eye is normal. Neck is supple. Neck veins are not distended. Chest is clear. Cardiac exam demonstrated sinus rhythm with no murmurs. Abdomen is soft, nontender. Extremities are normal. Neurologically, his affect is flat, but he is intact. He does have a problem with depression. IMPRESSION: 1. Acute alcohol intoxication. 2. Chronic alcoholism. 3. Chronic obstructive pulmonary disease. 4. Schizophrenia. 5. Major depression. PLAN: 1. Bed rest. 2. IV fluids. 3. Monitor for DTs. MMODL / IJN: [id number] /
--- NOTE | 2020-03-11 16:55 | PN ---
PROGRESS NOTE DATE OF SERVICE: 03/11/2020 CHIEF COMPLAINT: Acute alcohol intoxication. HISTORY OF PRESENT ILLNESS: This gentleman remains intoxicated. He is not complaining of any diplopia, pain, tremors, etc. PHYSICAL EXAMINATION: He is still slightly lethargic. Chest is clear. Cardiac exam is normal. Abdomen is soft, nontender. Extremities are normal. Neurologically he is intact, except he is still lethargic. IMPRESSION: 1. Acute alcohol intoxication. 2. Alcoholism. 3. Chronic obstructive pulmonary disease. 4. Schizophrenia. PLAN: Continue with IV fluids and Ativan p.r.n. MMODL / SANCHON: [id number] /
[2020-03-11] MEDS: LORazepam 2 MG/ML INJ IV PRN (20:09)
[2020-03-12] MEDS: THIAMINE 100 MG TAB PO SCH ×2 (08:37→17:49)
[2020-03-12 10:52] LABS: ALT 28 U/L (4-49); AST 36 U/L (17-59); African American GFR (CKD) >90 (>60 ml/min/1.73 sqM); Albumin 3.6 g/dL (3.5-5.0); Alkaline Phosphatase 65 U/L (38-126); Anion Gap 8 mmol/L; Blood Urea Nitrogen 12 mg/dL (9-20); Calcium 8.9 mg/dL (8.4-10.2); Carbon Dioxide 24 mmol/L (22-30); Chloride 102 mmol/L (98-107); Glucose 118 mg/dL (74-99); Non-African American GFR(CKD) >90 (>60 ml/min/1.73 sqM); Potassium 4.6 mmol/L (3.5-5.1); Sodium 134 mmol/L (137-145); Total Bilirubin 0.7 mg/dL (0.2-1.3); Total Protein 6.5 g/dL (6.3-8.2)
[2020-03-12 10:58] LABS: HCT 41.9 % (39.0-53.0); HGB 13.5 gm/dL (13.0-17.5); MCH 36.9 pg (25.0-35.0); MCHC 32.3 g/dL (31.0-37.0); MCV 114.3 fL (80.0-100.0); Macrocytosis Marked; Mean Platelet Volume 7.3; Platelet Count 319 k/uL (150-450); RBC 3.67 m/uL (4.30-5.90); RDW 15.6 % (11.5-15.5); WBC 4.4 k/uL (3.8-10.6)
[2020-03-12 11:49] LABS: Eosinophils # (M) 0.04 k/uL (0-0.7); Lymphocytes # (M) 0.97 k/uL (1.0-4.8); Neutrophils # (M) 2.99 k/uL (1.3-7.7); Neutrophils % (M) 68 %; Nucleated Red Blood Cells 0 /100 WBC (0-0); Total Cells Counted 100
[2020-03-12] MEDS: LORazepam 2 MG/ML INJ IV PRN (15:08)
--- NOTE | 2020-03-12 16:47 | PN ---
PROGRESS NOTE CHIEF COMPLAINT: Acute alcohol intoxication and schizophrenia. HISTORY OF PRESENT ILLNESS: This gentleman is doing better. He is a little less tremulous. He has had no nausea and he has had no blackouts. PHYSICAL EXAM: Head, ears, eyes, nose, and throat were unchanged. Chest is clear. Cardiac exam is normal. Abdomen is soft, nontender. Extremities: Normal. He is slightly tremulous. IMPRESSION: 1. Acute alcohol intoxication. 2. Schizophrenia. 3. Chronic alcoholism. PLAN: Start to increase activity and possibly home in the next day or 2. MMODL / IJN: [id number] /
[2020-03-13] MEDS: THIAMINE 100 MG TAB PO SCH ×2 (07:58→17:27)
[2020-03-14] MEDS: THIAMINE 100 MG TAB PO SCH (07:28)
[2020-03-14 08:22] VITALS: BP 116/74; PULSE 90; RESP 16; TEMP 98.2
--- NOTE | 2020-03-14 17:24 | PN ---
PROGRESS NOTE DATE OF SERVICE: 03/13/2020 CHIEF COMPLAINT: Alcoholism and DTs. HISTORY OF PRESENT ILLNESS: This gentleman is doing quite well. He is no longer in DTs. He is not having any chest pain, shortness of breath, etc. He has had no abdominal pain. PHYSICAL EXAMINATION: Chest is clear. The cardiac exam is normal. The abdomen is soft, nontender. IMPRESSION: Acute alcohol intoxication and DTs. PLAN: Probably home tomorrow. MMODL / IJN: [id number] /
--- NOTE | 2020-03-14 19:48 | DS ---
DISCHARGE SUMMARY CHIEF COMPLAINT: Acute alcohol intoxication and impending DTs. HISTORY OF PRESENT ILLNESS AND PHYSICAL EXAMINATION: Details of this man's history and physical can be found in the initial workup. LABORATORY STUDIES: While he was in the hospital he had laboratory studies, details of which can be found in the laboratory section of his chart. COURSE IN THE HOSPITAL: After admission he was placed on bedrest and started on intravenous fluids and CIWA protocol. He did well. He started to go into DTs, but he did fairly well and was doing well enough to be discharged on March 14. He will go home on only thiamin 100 mg twice a day and he will be seen in the office in several days. FINAL DIAGNOSES: 1. Acute alcohol intoxication. 2. Alcoholism. 3. Delirium tremens. 4. Major depression. 5. Schizophrenia. OPERATIONS: None. CONSULTATIONS: None. He is improved. REJI / NUHA: [id number] /
== END 2020-03-14 12:46 | disposition home or self-care (01) | DRG 897 ==
LOC: EC 12:34 → 4SSUR 20:39 → OBSVTOIN 03-12 09:03
PROVIDERS: ADMIT Family Medicine; ATTEND Family Medicine
DX: F10.221 Alcohol dependence with intoxication delirium (principal); F17.200 Nicotine dependence, unspecified, uncomplicated; F20.9 Schizophrenia, unspecified; F32.9 Major depressive disorder, single episode, unspecified; G40.909 Epilepsy, unspecified, not intractable, without status epilepticus; J44.9 Chronic obstructive pulmonary disease, unspecified; Z11.59 Encounter for screening for other viral diseases; Z79.890 Hormone replacement therapy; Z79.899 Other long term (current) drug therapy; Z88.8 Allergy status to other drugs, medicaments and biological substances; Y90.8 Blood alcohol level of 240 mg/100 ml or more
CPT/HCPCS: 36415; 80053; 80306; 80320; 81003; 85025; 87635; 96360; 96361; 99285

== ENCOUNTER 2020-04-14 16:57 | Emergency (ER) | payer MEDICARE ==
[2020-04-14 19:38] LABS: Appearance,Urine Clear (Clear); Bilirubin,Urine Negative (Negative); Blood,Urine Negative (Negative); Color,Urine Yellow; Glucose,Urine (UA) Negative (Negative); Ketones,Urine 1+ (Negative); Leukocyte Esterase,Urine Negative (Negative); Mucus,Urine Few /hpf; Nitrite,Urine Negative (Negative); PH, Urine 5.5 (5.0-8.0); Protein,Urine 1+ (Negative); RBC,Urine 1 /hpf (0-5); Specific Gravity,Urine 1.032 (1.001-1.035); Squamous Epithelial Cell,Urine <1 /hpf (0-4); Urobilinogen,Urine <2.0 mg/dL (<2.0); WBC,Urine <1 /hpf (0-5)
[2020-04-14 19:47] LABS: Amphetamine Screen,Urine Not Detected (NotDetected); Barbiturate Screen,Urine Not Detected (NotDetected); Benzodiazepines Screen,Urine Not Detected (NotDetected); Cocaine Screen,Urine Not Detected (NotDetected); Methadone Screen, Urine Not Detected (NotDetected); Opiate Screen,Urine Not Detected (NotDetected); Oxycodone Screen, Urine Not Detected (NotDetected); Phencyclidine Screen,Urine Not Detected (NotDetected); Tricyclic Antidepressant,Urine Not Detected (NotDetected); Urn Cannabinoid Scrn Not Detected (NotDetected)
[2020-04-14 23:00] VITALS: BP 157/78; PULSE 72; RESP 16; TEMP 98.5
--- NOTE | 2020-04-14 23:02 | ED ---
Psych HPI - General Chief Complaint: Psychiatric Symptoms Stated Complaint: EPS eval Time Seen by Provider: 04/14/20 17:27 Source: EMS Mode of arrival: EMS - History of Present Illness Initial Comments: 60-year-old male well known to the department presenting today for chief complaint of depression, anxiety states she has also had suicidal ideations for as long as he can remember. Patient denies attempt denies past attempt. States he just has had so many plans over the years nothing specific. I inquired on triage pt states that that has been one of his ideas. patient denies homicidal ideations or access to firearms. Patient denies additional complaints. States he has been homeless but is working on getting housing. - Related Data Previous Rx's Medication Instructions Recorded Thiamine [Vitamin B-1] 100 mg PO BID-W/MEALS #60 tab 03/14/20 Allergies Allergy/AdvReac Type Severity Reaction Status Date / Time ziprasidone HCl [From Geodon] AdvReac Unknown Pt states Verified 04/14/20 18:21 geodon over sedates him. ziprasidone mesylate AdvReac Pt. states Verified 04/14/20 18:21 [From Geodon] Geodon makes him excessively sedated Review of Systems ROS Statement: Those systems with pertinent positive or pertinent negative responses have been documented in the HPI. ROS Other: All systems not noted in ROS Statement are negative. Past Medical History Past Medical History: Seizure Disorder Additional Past Medical History / Comment(s): alcohol abuse History of Any Multi-Drug Resistant Organisms: None Reported Past Surgical History: No Surgical Hx Reported Additional Past Surgical History / Comment(s): eyelid sx Past Anesthesia/Blood Transfusion Reactions: No Reported Reaction Past Psychological History: Anxiety, Bipolar Smoking Status: Current every day smoker Past Alcohol Use History: Abuse, Daily, Heavy Past Drug Use History: None Reported - Past Family History Father Family Medical History: No Reported History Mother Family Medical History: Unable to Obtain Additional Family Medical History / Comment(s): Pt did not want to disclose General Exam - General Exam Comments Initial Comments: General: The patient is awake and alert, in no distress Eye: +3 mm pupils are equal, round and reactive to light, extra-ocular movements are intact. No nystagmus. There is normal conjunctiva bilaterally. No signs of icterus. Ears, nose, mouth and throat: There are moist mucous membranes and no oral lesions. Neck: The neck is supple, there is no tenderness or JVD. Cardiovascular: There is a regular rate and rhythm. No murmur, rub or gallop is appreciated. Respiratory: Lungs are clear to auscultation, respirations are non-labored, breath sounds are equal. No wheezes, stridor, rales, or rhonchi. Gastrointestinal: Soft, non-distended, non-tender abdomen without masses or organomegaly noted. There is no rebound or guarding present. Musculoskeletal: Normal ROM, no tenderness. Strength 5/5. Sensation intact. Radial pulses equal bilaterally 2+. Neurological: A&O x 3. CN II-XII intact grossly, There are no obvious motor or sensory deficits. Coordination appears grossly intact. Speech is normal. Skin: Skin is warm and dry and no rashes or lesions are noted. Psychiatric: Cooperative, appropriate mood & affect, normal judgment. Limitations: no limitations Course Vital Signs 04/14/20 04/14/20 17:10 22:56 Temperature 98.6 F 98.5 F Pulse Rate 75 72 Respiratory 18 16 Rate Blood Pressure 165/80 157/78 O2 Sat by Pulse 97 98 Oximetry Medical Decision Making - Medical Decision Making 60 presenting for suicidal ideation, ETOH on board. Once sober evaluated by EPS nurse. She spoke with education intern psychiatric relaying story/exam who recommended discharge of patient. Patient is agreeable to safety plan set in place and outpatient f/u. Patient discharged appearing well, Dr. pimentel agreeable to care plan and discharge. - Lab Data Lab Results 04/14/20 Range/Units 19:19 Urine Color Yellow Urine Appearance Clear (Clear) Urine pH 5.5 (5.0-8.0) Ur Specific [place] 1.032 (1.001-1.035) Urine Protein 1+ H (Negative) Urine Glucose (UA) Negative (Negative) Urine Ketones 1+ H (Negative) Urine Blood Negative (Negative) Urine Nitrite Negative (Negative) Urine Bilirubin Negative (Negative) Urine Urobilinogen <2.0 (<2.0) mg/dL Ur Leukocyte Esterase Negative (Negative) Urine RBC 1 (0-5) /hpf Urine WBC <1 (0-5) /hpf Ur Squamous Epith Cells <1 (0-4) /hpf Urine Mucus Few H (None) /hpf Urine Opiates Screen Not Detected (NotDetected) Ur Oxycodone Screen Not Detected (NotDetected) Urine Methadone Screen Not Detected (NotDetected) Ur Propoxyphene Screen Not Detected (NotDetected) Ur Barbiturates Screen Not Detected (NotDetected) U Tricyclic Antidepress Not Detected (NotDetected) Ur Phencyclidine Scrn Not Detected (NotDetected) Ur Amphetamines Screen Not Detected (NotDetected) U Methamphetamines Scrn Not Detected (NotDetected) U Benzodiazepines Scrn Not Detected (NotDetected) Urine Cocaine Screen Not Detected (NotDetected) U Marijuana (THC) Screen Not Detected (NotDetected) Disposition Clinical Impression: Depression, Suicidal thoughts Disposition: HOME SELF-CARE Condition: Stable Instructions (If sedation given, give patient instructions): Depression (ED), Help Prevent Suicide (ED) Additional Instructions: Please use medication as discussed. Please follow-up with family doctor in the next 2 days,follow safety plan as discussed. Please return to emergency room if the symptoms increase or worsen or for any other concerns. Is patient prescribed a controlled substance at d/c from ED?: No Referrals: Deshaun Velazquez MD [Primary Care Provider] - 1-2 days Time of Disposition: 23:02
== END 2020-04-14 22:56 | disposition home or self-care (01) ==
LOC: EC 16:57
DX: R45.851 Suicidal ideations (principal); Z59.0 Homelessness; F32.9 Major depressive disorder, single episode, unspecified; F10.10 Alcohol abuse, uncomplicated; Z88.8 Allergy status to other drugs, medicaments and biological substances
CPT/HCPCS: 80306; 81001; 82075; 99285

== ENCOUNTER 2020-04-16 14:13 | Emergency (ER) | payer MEDICARE ==
--- NOTE | 2020-04-16 14:44 | ED ---
General Adult HPI - General Source: patient, RN notes reviewed, old records reviewed Mode of arrival: ambulatory Limitations: no limitations <Adan Villanueva - Last Filed: 04/16/20 15:45> <Bárbara Hunt - Last Filed: 04/24/20 23:23> - General Chief complaint: Psychiatric Symptoms Stated complaint: mental health Time Seen by Provider: 04/16/20 14:27 - History of Present Illness Initial comments: 60-year-old male presenting for psychiatric evaluation. Patient states he is suicidal. He does admit to alcohol consumption today. He has had issues with alcohol for some time. He does not have a specific plan but states he is spontaneous. He denies pain complaints. (Adan Villanueva) - Related Data Home Medications Medication Instructions Recorded Confirmed Ergocalciferol [Vitamin D2 1 cap PO Q30D 04/16/20 04/16/20 (DRISDOL)] Previous Rx's Medication Instructions Recorded Thiamine [Vitamin B-1] 100 mg PO BID-W/MEALS #60 tab 03/14/20 Allergies Allergy/AdvReac Type Severity Reaction Status Date / Time ziprasidone HCl [From Geodon] AdvReac Unknown Pt states Verified 04/16/20 17:27 geodon over sedates him. ziprasidone mesylate AdvReac Pt. states Verified 04/16/20 17:27 [From Geodon] Geodon makes him excessively sedated Review of Systems ROS Other: All systems not noted in ROS Statement are negative. <Adan Villanueva - Last Filed: 04/16/20 15:45> ROS Other: All systems not noted in ROS Statement are negative. <Bárbara Hunt - Last Filed: 04/24/20 23:23> ROS Statement: Those systems with pertinent positive or pertinent negative responses have been documented in the HPI. Past Medical History Past Medical History: Seizure Disorder Additional Past Medical History / Comment(s): alcohol abuse History of Any Multi-Drug Resistant Organisms: None Reported Past Surgical History: No Surgical Hx Reported Additional Past Surgical History / Comment(s): eyelid sx Past Anesthesia/Blood Transfusion Reactions: No Reported Reaction Past Psychological History: Anxiety, Bipolar Smoking Status: Current every day smoker Past Alcohol Use History: Abuse, Daily, Heavy Past Drug Use History: None Reported - Past Family History Father Family Medical History: No Reported History Mother Family Medical History: Unable to Obtain Additional Family Medical History / Comment(s): Pt did not want to disclose <Adan Villanueva - Last Filed: 04/16/20 15:45> General Exam Limitations: no limitations General appearance: alert, in no apparent distress, appears intoxicated Head exam: Present: atraumatic, normocephalic Eye exam: Present: normal appearance, PERRL ENT exam: Present: normal exam Neck exam: Present: normal inspection. Absent: tenderness, meningismus Respiratory exam: Present: normal lung sounds bilaterally. Absent: respiratory distress, wheezes, rhonchi Cardiovascular Exam: Present: regular rate, normal rhythm GI/Abdominal exam: Present: soft. Absent: distended, tenderness, guarding Back exam: Present: normal inspection Neurological exam: Present: alert, oriented X3, CN II-XII intact, normal gait. Absent: motor sensory deficit Psychiatric exam: Present: depressed, flat affect, suicidal ideation Skin exam: Present: warm, dry, intact. Absent: cyanosis, diaphoretic <Adan Villanueva - Last Filed: 04/16/20 15:45> Course <Adan Villanueva - Last Filed: 04/16/20 15:45> Vital Signs 04/16/20 04/16/20 14:17 21:20 Temperature 98 F 98.2 F Pulse Rate 103 H 98 Respiratory 18 17 Rate Blood Pressure 113/80 111/57 O2 Sat by Pulse 91 L 93 L Oximetry - Reevaluation(s) Reevaluation #1: 04/16/20 1600 Age his care signed out at shift change to Dr. Hunt awaiting sobriety and EPS evaluation (Adan Villanueva) Medical Decision Making <Bárbara Hunt - Last Filed: 04/24/20 23:23> - Medical Decision Making Patient achieves sobriety and retracts previous statements. Patient denies suicidal and homicidal ideations. Patient wants to go home. Patient evaluated by EPS and safety plan is made. Patient discharged home with resources. (Bárbara Hunt) - Lab Data Lab Results 04/16/20 Range/Units 17:32 Urine Opiates Screen Negative (Negative) ng/mL Urine Methadone Screen Negative (Negative) ng/mL Ur Propoxyphene Screen Negative (Negative) ng/mL Urine Barbiturates Negative (Negative) ng/mL Ur Phencyclidine Scrn Negative (Negative) ng/mL Ur Amphetamine Screen Negative (Negative) ng/mL U Benzodiazepines Scrn Negative (Negative) ng/mL Urine Cocaine Screen Negative (Negative) ng/mL U Cannabinoids Screen Negative (Negative) ng/mL Urine Alcohol Positive H (Negative) mg/dL Disposition <Adan Villanueva - Last Filed: 04/16/20 15:45> Is patient prescribed a controlled substance at d/c from ED?: No Time of Disposition: 20:53 <Bárbara Hunt - Last Filed: 04/24/20 23:23> Clinical Impression: Depression Disposition: HOME SELF-CARE Condition: Stable Instructions (If sedation given, give patient instructions): Depression (ED) Additional Instructions: Please follow up with your PCP in 2-4 days. Return to the ED for any new or worsening symptoms. Referrals: Deshaun Velazquez MD [Primary Care Provider] - 1-2 days
[2020-04-16 21:21] VITALS: BP 111/57; PULSE 98; RESP 17; TEMP 98.2
[2020-04-16 23:04] LABS: Urine Alcohol Positive (Negative); Urine Barbiturate Negative (Negative); Urine Cocaine Negative (Negative); Urine Methadone Negative (Negative); Urine Opiates Negative (Negative); Urine Phencyclidine Negative (Negative)
== END 2020-04-16 21:37 | disposition home or self-care (01) ==
LOC: EC 14:13
DX: F32.9 Major depressive disorder, single episode, unspecified (principal); F17.200 Nicotine dependence, unspecified, uncomplicated; Z88.8 Allergy status to other drugs, medicaments and biological substances
CPT/HCPCS: 80306; 82075; 99285

== ENCOUNTER 2020-05-02 18:45 | Emergency (ER) | payer MEDICARE ==
[2020-05-02 19:11] VITALS: BP 112/77; PULSE 107; RESP 18; TEMP 98.5
--- NOTE | 2020-05-02 20:35 | ED ---
Psych HPI - General Chief Complaint: Psychiatric Symptoms Stated Complaint: petition Time Seen by Provider: 05/02/20 20:07 Source: patient Mode of arrival: ambulatory - History of Present Illness Initial Comments: 60-year-old male patient presents to the emergency department today for evaluation of suicidal ideation. Patient reports that he wanted to jump in front of traffic. States he has been feeling increasingly suicidal over the last couple of weeks. Patient does admit to drinking alcohol daily basis. States he did have a half fifth of vodka before coming in. He also called the crisis hotline inform them that he wanted to jump in front of traffic. He did see [facility] this morning. Patient states he does take psychiatric medications but is not sure he takes every day and is not sure which medications they are. Denies street drug use. Patient denies any recent rash, fever, chills, cough, shortness of breath, chest pain, abdominal pain, nausea, vomiting, diarrhea, constipation, back pain, numbness, tingling, dizziness, weakness, hematuria, dysuria, urinary urgency, urinary frequency, headache, visual changes, or any other complaints. - Related Data Home Medications Medication Instructions Recorded Confirmed Ergocalciferol [Vitamin D2 50,000 unit PO Q30D 04/16/20 05/02/20 (DRISDOL)] Previous Rx's Medication Instructions Recorded Thiamine [Vitamin B-1] 100 mg PO BID-W/MEALS #60 tab 03/14/20 Allergies Allergy/AdvReac Type Severity Reaction Status Date / Time ziprasidone HCl [From Geodon] AdvReac Unknown Pt states Verified 05/02/20 22:46 geodon over sedates him. ziprasidone mesylate AdvReac Pt. states Verified 05/02/20 22:46 [From Geodon] Geodon makes him excessively sedated Review of Systems ROS Statement: Those systems with pertinent positive or pertinent negative responses have been documented in the HPI. ROS Other: All systems not noted in ROS Statement are negative. Past Medical History Past Medical History: Seizure Disorder Additional Past Medical History / Comment(s): alcohol abuse History of Any Multi-Drug Resistant Organisms: None Reported Past Surgical History: No Surgical Hx Reported Additional Past Surgical History / Comment(s): eyelid sx Past Anesthesia/Blood Transfusion Reactions: No Reported Reaction Past Psychological History: Anxiety, Bipolar Smoking Status: Current every day smoker Past Alcohol Use History: Abuse, Daily, Heavy Past Drug Use History: None Reported - Past Family History Father Family Medical History: No Reported History Mother Family Medical History: Unable to Obtain Additional Family Medical History / Comment(s): Pt did not want to disclose General Exam General appearance: alert, in no apparent distress, other (This is a well- developed, well-nourished adult male patient who does appear intoxicated. Vital signs upon presentation are temperature 98.5F. Pulse 107, respirations 18, blood pressure 112/77, pulse ox 94% on room air.) Respiratory exam: Present: normal lung sounds bilaterally. Absent: respiratory distress, wheezes, rales, rhonchi, stridor Cardiovascular Exam: Present: regular rate, normal rhythm, normal heart sounds. Absent: systolic murmur, diastolic murmur, rubs, gallop, clicks GI/Abdominal exam: Present: soft, normal bowel sounds. Absent: distended, tenderness, guarding, rebound, rigid Neurological exam: Present: alert, oriented X3, CN II-XII intact Psychiatric exam: Present: normal affect, normal mood Skin exam: Present: warm, dry, intact, normal color. Absent: rash Course Vital Signs 05/02/20 19:05 Temperature 98.5 F Pulse Rate 107 H Respiratory 18 Rate Blood Pressure 112/77 O2 Sat by Pulse 94 L Oximetry Medical Decision Making - Medical Decision Making 60-year-old male patient presented to the emergency department today for evaluation of suicidal ideation. Patient was quite intoxicated. His plan is to jump in front of traffic. He was monitored until sober. He was evaluated by emergency psychiatric services. They do not feel that he meets inpatient criteria at this time. They did develop a safety plan, patient did review this and sign and does have a copy. He does have an appointment with [facility] Saturday morning at 8 AM. He does seem mobile crisis unit. He will be discharged to follow-up with his primary care physician for recheck in 1-2 days. Return parameters were discussed in detail. Patient verbalizes understanding and agrees with this plan. - Lab Data Lab Results 05/02/20 Range/Units 20:30 Urine Opiates Screen Not Detected (NotDetected) Ur Oxycodone Screen Not Detected (NotDetected) Urine Methadone Screen Not Detected (NotDetected) Ur Propoxyphene Screen Not Detected (NotDetected) Ur Barbiturates Screen Not Detected (NotDetected) U Tricyclic Antidepress Not Detected (NotDetected) Ur Phencyclidine Scrn Not Detected (NotDetected) Ur Amphetamines Screen Not Detected (NotDetected) U Methamphetamines Scrn Not Detected (NotDetected) U Benzodiazepines Scrn Not Detected (NotDetected) Urine Cocaine Screen Not Detected (NotDetected) U Marijuana (THC) Screen Not Detected (NotDetected) Disposition Clinical Impression: Suicidal ideation, Depression Disposition: HOME SELF-CARE Condition: Good Instructions (If sedation given, give patient instructions): Depression (ED), Suicide Prevention (ED) Additional Instructions: Follow up with [facility] Saturday morning as you have planned. Return to the emergency department immediately for any new, worsening, or concerning symptoms. Is patient prescribed a controlled substance at d/c from ED?: No Referrals: Deshaun Velazquez MD [Primary Care Provider] - 1-2 days Time of Disposition: 03:37
[2020-05-02 20:55] LABS: Amphetamine Screen,Urine Not Detected (NotDetected); Barbiturate Screen,Urine Not Detected (NotDetected); Benzodiazepines Screen,Urine Not Detected (NotDetected); Cocaine Screen,Urine Not Detected (NotDetected); Methadone Screen, Urine Not Detected (NotDetected); Opiate Screen,Urine Not Detected (NotDetected); Oxycodone Screen, Urine Not Detected (NotDetected); Phencyclidine Screen,Urine Not Detected (NotDetected); Tricyclic Antidepressant,Urine Not Detected (NotDetected); Urn Cannabinoid Scrn Not Detected (NotDetected)
== END 2020-05-03 04:39 | disposition home or self-care (01) ==
LOC: EC 18:45
DX: F32.9 Major depressive disorder, single episode, unspecified (principal); F17.200 Nicotine dependence, unspecified, uncomplicated; Z88.8 Allergy status to other drugs, medicaments and biological substances
CPT/HCPCS: 80306; 82075; 99284

== ENCOUNTER 2020-05-05 21:18 | Emergency (ER) | payer MEDICARE, OTHER ==
--- NOTE | 2020-05-05 23:09 | ED ---
Psych HPI - General Source: patient, police Mode of arrival: ambulatory <Wyatt Vogt - Last Filed: 05/06/20 00:16> <Semaj Corona - Last Filed: 05/06/20 09:50> - General Chief Complaint: Psychiatric Symptoms Stated Complaint: Mental health Time Seen by Provider: 05/05/20 22:09 - History of Present Illness Initial Comments: Patient is 60-year-old male to female transgender with history of alcohol abuse, substance abuse, depression, bipolar disorder presenting to the emergency department for suicidal ideation. Patient was petitioned by the police. Patient brought to the ED via EMS. When attempted to speak with the patient, patient prefers to be sleeping. Per EMS report, patient is an opportunistic suicidal patient. He spoke with the mobile crisis unit who advised them to call the EMS. He also is concerned because he may be getting evicted from his place of residence. Patient has been drinking today. Has suicidal thoughts of wanting to jump in front of a car. (Wyatt Vogt) - Related Data Home Medications Medication Instructions Recorded Confirmed Ergocalciferol [Vitamin D2 50,000 unit PO Q30D 04/16/20 05/02/20 (DRISDOL)] Previous Rx's Medication Instructions Recorded Thiamine [Vitamin B-1] 100 mg PO BID-W/MEALS #60 tab 03/14/20 Allergies Allergy/AdvReac Type Severity Reaction Status Date / Time ziprasidone HCl [From Geodon] AdvReac Unknown Pt states Verified 05/05/20 21:51 geodon over sedates him. ziprasidone mesylate AdvReac Pt. states Verified 05/05/20 21:51 [From Geodon] Geodon makes him excessively sedated Review of Systems ROS Other: All systems not noted in ROS Statement are negative. <Wyatt Vogt - Last Filed: 05/06/20 00:16> ROS Other: All systems not noted in ROS Statement are negative. <Semaj Corona - Last Filed: 05/06/20 09:50> ROS Statement: Those systems with pertinent positive or pertinent negative responses have been documented in the HPI. Past Medical History Past Medical History: Seizure Disorder Additional Past Medical History / Comment(s): alcohol abuse History of Any Multi-Drug Resistant Organisms: None Reported Past Surgical History: No Surgical Hx Reported Additional Past Surgical History / Comment(s): eyelid sx Past Anesthesia/Blood Transfusion Reactions: No Reported Reaction Past Psychological History: Anxiety, Bipolar Smoking Status: Current every day smoker Past Alcohol Use History: Abuse, Daily, Heavy Past Drug Use History: None Reported - Past Family History Father Family Medical History: No Reported History Mother Family Medical History: Unable to Obtain Additional Family Medical History / Comment(s): Pt did not want to disclose <Wyatt Vogt - Last Filed: 05/06/20 00:16> General Exam Limitations: no limitations <Wyatt Vogt - Last Filed: 05/06/20 00:16> Course Vital Signs 05/05/20 05/06/20 21:48 06:49 Temperature 98.1 F 97.4 F L Pulse Rate 104 H 103 H Respiratory 18 16 Rate Blood Pressure 113/79 129/65 O2 Sat by Pulse 95 98 Oximetry Medical Decision Making <Wyatt Vogt - Last Filed: 05/06/20 00:16> <Semaj Corona - Last Filed: 05/06/20 09:50> - Medical Decision Making At this time patient care will be signed off to (Wyatt Vogt) Dr. Feliz signed out the patient to me EPS evaluated the patient gave the patient a safety plan. Patient denied any suicidal ideations now as stated it was just secondary to be intoxicated. (Semaj Corona) Disposition <Wyatt Vogt - Last Filed: 05/06/20 00:16> Is patient prescribed a controlled substance at d/c from ED?: No Time of Disposition: 09:50 <Semaj Corona - Last Filed: 05/06/20 09:50> Clinical Impression: Situational depression, Alcohol intoxication Disposition: HOME SELF-CARE Condition: Good Referrals: Deshaun Velazquez MD [Primary Care Provider] - 1-2 days
[2020-05-06 10:03] VITALS: BP 126/74; PULSE 97; RESP 18; TEMP 98.1
== END 2020-05-06 10:01 | disposition home or self-care (01) ==
LOC: EC 21:18
DX: F10.129 Alcohol abuse with intoxication, unspecified (principal); R45.851 Suicidal ideations; F17.200 Nicotine dependence, unspecified, uncomplicated; Z88.8 Allergy status to other drugs, medicaments and biological substances
CPT/HCPCS: 82075; 99285

== ENCOUNTER 2020-05-11 23:03 | Inpatient (IN) | payer MEDICARE, MEDICAID ==
[2020-05-12] MEDS ORDERED: THIAMINE 100 MG/ML 2 ML VIAL IM STA (01:05)
[2020-05-12] MEDS ORDERED: LORazepam 2 MG/ML INJ IV PRN ×3 (01:05)
--- NOTE | 2020-05-12 02:09 | ED ---
Psych HPI - General Source: patient Mode of arrival: wheelchair <Muna Rodgers - Last Filed: 05/12/20 02:04> <Semaj Corona - Last Filed: 05/12/20 12:52> - General Chief Complaint: Psychiatric Symptoms Stated Complaint: Mental Health Time Seen by Provider: 05/11/20 23:22 - History of Present Illness Initial Comments: 60-year-old male presenting for suicidal ideation. Patient who is well-known to the emergency department for suicidal ideation presents emergency department for chief complaint of I want to walk into traffic. Patient denies homicidal ideation. Patient denies any hallucinations including visual or auditory. Patient denies any additional symptoms including patient denies any recent fever, chills, shortness of breath, chest pain, back pain, abdominal pain, nausea or vomiting, numbness or tingling, dysuria or hematuria, constipation or diarrhea, headaches or visual changes, or any other complaints. Patient admits to drinking today. (Muna Rodgers) - Related Data Home Medications Medication Instructions Recorded Confirmed Ergocalciferol [Vitamin D2 50,000 unit PO Q30D 04/16/20 05/12/20 (DRISDOL)] Previous Rx's Medication Instructions Recorded Thiamine [Vitamin B-1] 100 mg PO BID-W/MEALS #60 tab 03/14/20 Allergies Allergy/AdvReac Type Severity Reaction Status Date / Time ziprasidone HCl [From Geodon] AdvReac Unknown Pt states Verified 05/12/20 08:30 geodon over sedates him. ziprasidone mesylate AdvReac Pt. states Verified 05/12/20 08:30 [From Geodon] Geodon makes him excessively sedated Review of Systems ROS Other: All systems not noted in ROS Statement are negative. <Muna Rodgers - Last Filed: 05/12/20 02:04> ROS Other: All systems not noted in ROS Statement are negative. <Semaj Corona - Last Filed: 05/12/20 12:52> ROS Statement: Those systems with pertinent positive or pertinent negative responses have been documented in the HPI. Past Medical History Past Medical History: Seizure Disorder Additional Past Medical History / Comment(s): alcohol abuse History of Any Multi-Drug Resistant Organisms: None Reported Past Surgical History: No Surgical Hx Reported Additional Past Surgical History / Comment(s): eyelid sx Past Anesthesia/Blood Transfusion Reactions: No Reported Reaction Past Psychological History: Anxiety, Bipolar Smoking Status: Current every day smoker Past Alcohol Use History: Abuse, Daily, Heavy Past Drug Use History: None Reported - Past Family History Father Family Medical History: No Reported History Mother Family Medical History: Unable to Obtain Additional Family Medical History / Comment(s): Pt did not want to disclose <Muna Rodgers - Last Filed: 05/12/20 02:04> General Exam Limitations: no limitations <Muna Rodgers - Last Filed: 05/12/20 02:04> - General Exam Comments Initial Comments: General: The patient is awake and alert, in no distress, and does not appear acutely ill. Eye: +3 nn pupils are equal, round and reactive to light, extra-ocular movements are intact. No nystagmus. There is normal conjunctiva bilaterally. No signs of icterus. Cardiovascular: There is a regular rate and rhythm. No murmur, rub or gallop is appreciated. Respiratory: Lungs are clear to auscultation, respirations are non-labored, breath sounds are equal. No wheezes, stridor, rales, or rhonchi. Gastrointestinal: Soft, non-distended, non-tender abdomen without masses or organomegaly noted. There is no rebound or guarding present. Musculoskeletal: Normal ROM, no tenderness. Strength 5/5. Sensation intact. radial pulses equal bilaterally 2+. Neurological: A&O x 3. CN II-XII intact grossly, There are no obvious motor or sensory deficits. Coordination appears grossly intact. Speech is normal. Skin: Skin is warm and dry and no rashes or lesions are noted. Psychiatric: Cooperative, appropriate mood & affect, normal judgment. (Muna Rodgers) Course Vital Signs 05/11/20 05/12/20 05/12/20 23:13 01:15 08:44 Temperature 98.7 F Pulse Rate 101 H 95 87 Respiratory 16 17 16 Rate Blood Pressure 103/68 98/56 129/82 O2 Sat by Pulse 93 L 96 96 Oximetry 05/12/20 05/12/20 05/12/20 09:00 10:00 11:00 Temperature Pulse Rate Respiratory 16 16 16 Rate Blood Pressure O2 Sat by Pulse Oximetry Medical Decision Making <Muna Rodgers - Last Filed: 05/12/20 02:04> - Medical Decision Making 60yo male presenting today for cc of suicidal ideation. Intoxicated on arrival. No additional complaints. Patient on CIWA protocols. Will be sober at 0437 05/12. Patient case signed out to Dr. Ellsworth at 3AM for final disposition. (Muna Rodgers) - Lab Data Lab Results 05/12/20 Range/Units 05:45 Urine Color Yellow Urine Appearance Clear (Clear) Urine pH 6.0 (5.0-8.0) Ur Specific [place] 1.029 (1.001-1.035) Urine Protein 1+ H (Negative) Urine Glucose (UA) Negative (Negative) Urine Ketones 1+ H (Negative) Urine Blood Negative (Negative) Urine Nitrite Negative (Negative) Urine Bilirubin Negative (Negative) Urine Urobilinogen <2.0 (<2.0) mg/dL Ur Leukocyte Esterase Negative (Negative) Urine RBC <1 (0-5) /hpf Urine WBC 1 (0-5) /hpf Ur Squamous Epith Cells <1 (0-4) /hpf Urine Mucus Moderate H (None) /hpf Urine Opiates Screen Not Detected (NotDetected) Ur Oxycodone Screen Not Detected (NotDetected) Urine Methadone Screen Not Detected (NotDetected) Ur Propoxyphene Screen Not Detected (NotDetected) Ur Barbiturates Screen Not Detected (NotDetected) U Tricyclic Antidepress Not Detected (NotDetected) Ur Phencyclidine Scrn Not Detected (NotDetected) Ur Amphetamines Screen Not Detected (NotDetected) U Methamphetamines Scrn Not Detected (NotDetected) U Benzodiazepines Scrn Not Detected (NotDetected) Urine Cocaine Screen Not Detected (NotDetected) U Marijuana (THC) Screen Not Detected (NotDetected) Disposition <Muna Rodgers - Last Filed: 05/12/20 02:04> Time of Disposition: 12:52 <Semaj Corona - Last Filed: 05/12/20 12:52> Clinical Impression: Depression, Alcohol intoxication Disposition: ADMITTED IP TO THIS HOSP Referrals: Deshaun Velazquez MD [Primary Care Provider] - 1-2 days
[2020-05-12 06:04] LABS: Appearance,Urine Clear (Clear); Bilirubin,Urine Negative (Negative); Blood,Urine Negative (Negative); Color,Urine Yellow; Glucose,Urine (UA) Negative (Negative); Ketones,Urine 1+ (Negative); Leukocyte Esterase,Urine Negative (Negative); Mucus,Urine Moderate /hpf; Nitrite,Urine Negative (Negative); Protein,Urine 1+ (Negative); RBC,Urine <1 /hpf (0-5); Specific Gravity,Urine 1.029 (1.001-1.035); Squamous Epithelial Cell,Urine <1 /hpf (0-4); Urobilinogen,Urine <2.0 mg/dL (<2.0); WBC,Urine 1 /hpf (0-5)
[2020-05-12 06:05] LABS: Amphetamine Screen,Urine Not Detected (NotDetected); Barbiturate Screen,Urine Not Detected (NotDetected); Benzodiazepines Screen,Urine Not Detected (NotDetected); Cocaine Screen,Urine Not Detected (NotDetected); Methadone Screen, Urine Not Detected (NotDetected); Opiate Screen,Urine Not Detected (NotDetected); Oxycodone Screen, Urine Not Detected (NotDetected); Phencyclidine Screen,Urine Not Detected (NotDetected); Tricyclic Antidepressant,Urine Not Detected (NotDetected); Urn Cannabinoid Scrn Not Detected (NotDetected)
[2020-05-12] MEDS ORDERED: ACETAMINOPHEN TAB 325 MG TAB PO PRN (14:45)
[2020-05-12] MEDS ORDERED: MAG HYDROX/AL HYDROX/SIMETH 30 ML CUP PO PRN (14:45)
[2020-05-12] MEDS ORDERED: THIAMINE 100 MG TAB PO SCH (17:30)
[2020-05-12] MEDS: THIAMINE 100 MG TAB PO SCH (17:43)
[2020-05-12] MEDS: LORazepam 1 MG TAB PO PRN (17:53)
[2020-05-13] MEDS: LORazepam 1 MG TAB PO PRN ×2 (00:53→10:45)
[2020-05-13] MEDS ORDERED: ERGOCALCIFEROL 50,000 UNIT CAP PO SCH (09:00)
[2020-05-13 09:44] LABS: ALT 78 U/L (4-49); AST 195 U/L (17-59); African American GFR (CKD) >90 (>60 ml/min/1.73 sqM); Albumin 4.7 g/dL (3.5-5.0); Alkaline Phosphatase 82 U/L (38-126); Anion Gap 11 mmol/L; Blood Urea Nitrogen 16 mg/dL (9-20); Calcium 9.7 mg/dL (8.4-10.2); Carbon Dioxide 28 mmol/L (22-30); Chloride 97 mmol/L (98-107); Cholesterol 255 mg/dL (<200); Glucose 130 mg/dL (74-99); Non-African American GFR(CKD) >90 (>60 ml/min/1.73 sqM); Potassium 4.3 mmol/L (3.5-5.1); Sodium 136 mmol/L (137-145); Total Bilirubin 2.7 mg/dL (0.2-1.3); Total Protein 7.6 g/dL (6.3-8.2); Triglycerides 117 mg/dL (<150)
[2020-05-13 09:46] LABS: Anisocytosis Slight; HCT 44.7 % (39.0-53.0); HGB 14.5 gm/dL (13.0-17.5); MCH 39.5 pg (25.0-35.0); MCHC 32.5 g/dL (31.0-37.0); Macrocytosis Marked; Mean Platelet Volume 7.9; Platelet Count 253 k/uL (150-450); RBC 3.67 m/uL (4.30-5.90); RDW 17.5 % (11.5-15.5); WBC 6.6 k/uL (3.8-10.6)
[2020-05-13 09:52] LABS: MCV 121.6 fL (80.0-100.0)
[2020-05-13 09:54] LABS: LDL Cholesterol,Calculated 108 mg/dL (0-99)
[2020-05-13 10:05] LABS: HDL Cholesterol 124 mg/dL (40-60)
[2020-05-13 10:21] LABS: Basophils # (M) 0.07 k/uL (0-0.2); Eosinophils # (M) 0.13 k/uL (0-0.7); Lymphocytes # (M) 0.92 k/uL (1.0-4.8); Monocytes # (M) 0.53 k/uL (0-1.0); Neutrophils # (M) 4.95 k/uL (1.3-7.7); Neutrophils % (M) 75 %; Nucleated Red Blood Cells 0 /100 WBC (0-0); Total Cells Counted 100
[2020-05-13] MEDS: THIAMINE 100 MG TAB PO SCH ×2 (10:46→17:53)
--- NOTE | 2020-05-13 12:04 | HP ---
HISTORY AND PHYSICAL DATE OF SERVICE DICTATION: 05/13/2020 IDENTIFYING DATA: This patient is a 60-year-old single male who identifies as a female who presented to the mental health unit through the emergency room with suicidal ideation. HISTORY OF PRESENT ILLNESS: The patient is well known to this psychiatric service. He has a history of numerous psychiatric admissions. He carries a diagnosis of major depressive disorder as well as alcohol use disorder, severe. The patient states that he became overwhelmed with stressors and had acute suicidal ideation. He describes himself as being very impulsive, when he has those thoughts, especially in the context of daily alcohol use. He indicates he has been drinking more than 1/5 a day of liquor and this has been going on for years. He indicates sleep has been disturbed. Appetite decreased. He has hopeless thinking. The primary stressor is concerned that he will be evicted from his current residence. The [facility] health liaison informed me that he is due to have a court hearing for a substance use order. The patient indicates that he has been speaking with his therapist on the phone. He has not seen a psychiatrist in quite some time. He is on no psychotropic medication. He reports no homicidal ideation. He endorses no auditory or visual hallucinations. He is endorsing no specific delusions. There is no clear history of hypomanic or manic episodes. PAST PSYCHIATRIC HISTORY: The patient has had numerous inpatient psychiatric admissions. He was last here in this mental health unit in July of 2019 under my care. He was here in October of 2017, October of 2016, May of 2015. He does have a history of suicide attempts. He states that he slowly been trying to kill himself with alcohol use. He indicates that he has been on psychotropic medication ever since the age of 15. PAST MEDICAL HISTORY: None reported. ALLERGIES: GEODON. SUBSTANCE USE HISTORY: The patient states he has been drinking at least a fifth or more of liquor daily. This has been going on for numerous years. He is reporting no use of marijuana or any illicit drugs. Urine drug screen is negative. He has been in inpatient chemical dependency treatment in the past. FAMILY PSYCHIATRIC AND SUBSTANCE USE HISTORY: Unknown. SOCIAL HISTORY: The patient is 60 years old. He identifies as being female. He is residing in an apartment-type setting. He completed high school, no service. He was previously . He is . His numerous years ago. He has no children. LEGAL HISTORY, ABUSE HISTORY: Unknown. MENTAL STATUS EXAM: The patient is 60 years old. He appears older than his stated age. He is dressed in women's clothing. His fingernails are painted. Eye contact is appropriate. He is pleasant, cooperative. He maintains a dysphoric affect. Speech is fluent, spontaneous, soft, non pressured. He demonstrates no tangential thinking, loose associations or flight of ideas. He describes recent suicidal ideation, but he indicates he feels safe in the hospital. No homicidal ideation, intent, or plan. He is reporting no current auditory or visual hallucinations or any specific delusions. There is no observed evidence of psychosis, hypomania or itzel. He demonstrates no verbal or physical aggressiveness. He demonstrates no involuntary repetitive movements. IMPRESSION: Major depressive disorder, recurrent, severe, without psychosis. Alcohol use disorder, severe. PLAN: The patient has been admitted to the mental health unit voluntarily. We reviewed his presenting presenting symptoms and treatment options. We decided to reinitiate the Remeron 15 mg at bedtime. I will start Ativan 1 mg 3 times daily scheduled with Ativan p.r.n. as needed. CIWA scores are reviewed. We will taper him off the Ativan as clinically appropriate. He will not leave the hospital with a prescription for Ativan. He is encouraged to call [facility] to arrange inpatient chemical dependency treatment. He will be seen by Internal Medicine for routine history and physical exam. Social Work will meet with the patient to complete a psychosocial assessment to begin discharge planning. We will involve any available support in his treatment and discharge planning. He is instructed to fully participate in the milieu. MMODL / SANCHON: [id number] /
[2020-05-13] MEDS: LORazepam 1 MG TAB PO SCH ×2 (16:16→20:37)
[2020-05-13 17:46] LABS: Hemoglobin A1C 5.2 % (4.0-6.0)
--- NOTE | 2020-05-13 18:31 | CONS ---
CONSULTATION CHIEF COMPLAINT: Major depression and chronic alcoholism. HISTORY OF PRESENT ILLNESS: This is another of many admissions for this 60-year-old white male who has a longstanding history of depression and alcoholism. He is a transvestite. He apparently started to have more difficulty as an outpatient. He was drinking and was brought to the emergency room and was admitted. He is very noncompliant in terms of following up on his psychiatric disorders. REVIEW OF SYSTEMS: He has had no chest pain, shortness of breath, abdominal pain, vomiting, melena, hematochezia, jaundice, etc. Past medical history, family history, and personal and social histories are unremarkable otherwise. He is ALLERGIC TO GEODON. When last seen in April, he was not taking any medications. PHYSICAL EXAMINATION: Blood pressure is 128/68, pulse 76, respirations of 18. He is afebrile. Head, ears, eyes, nose, mouth and throat are normal except for his left eye, where he has ptosis. Chest is clear to auscultation. Cardiac exam is normal. Abdomen is soft, nontender. IMPRESSION: 1. Major depression. 2. Alcoholism. PLAN: Continue with his inpatient psychiatric care. MMODL / IJN: [id number] /
[2020-05-13] MEDS: MIRTAZAPINE 15 MG TAB PO SCH (20:37)
[2020-05-14] MEDS: THIAMINE 100 MG TAB PO SCH ×2 (09:47→16:05)
[2020-05-14] MEDS: LORazepam 1 MG TAB PO SCH ×3 (09:47→22:01)
--- NOTE | 2020-05-14 18:29 | P.PN ---
Progress Note - Text Progress Note Date: 05/14/20 Subjective: Patient was seen today as a cross coverage for . The patient was evaluated, chart reviewed, case discussed with the treatment team. Patient reported interrupted sleep last night. Appetite was reported as " better today". Patient has not been going to many groups and other unit activities. The patient is not compliant with his medications and denies any adverse reactions. The patient was not fully oriented to time, and was slow and delayed in his response, but he was oriented to place, person, and situation. He reports continued to feel depressed, but denies suicidal or homicidal ideation. Reports sometimes hears vague auditory hallucinations but he couldn't give any further description. Reports continued to have alcohol withdrawal symptoms including sweating, stomach upset, and severe anxiety. He reports not taking Remeron and he refused to discuss any antidepressant medications. Objective: Vitals has been reviewed. Mental status examination; Appearance: The patient appears older than stated age, disheveled, poorly groomed, below average body built. Gait/posture: Week, slow, Normal arm swinging: No abnormal movements. Attitude and behavior: Not fully engaged, partially cooperative, poor eye contact. Motor activity: Decreased psychomotor activity Speech: Slow Mood: Depressed Affect: Constricted Thought form: Slow thought process Thought content: Non-delusional, denies suicidal thoughts, denies homicidal thoughts, denies intentions or plans. Perception: Denies any auditory or visual hallucinations Attention: No impairment. Orientation: Patient was not fully oriented to time. Insight: Patient has limited insight about his psychiatric disorder. Judgment: Patient has limited judgment about his psychiatric treatment. Assessment: Major depressive disorder recurrent, severe, with psychotic features. Alcohol use disorder, severe Plan: Continue inpatient level of care due to need for further monitoring and stabilization Precautions: Continue 15 minutes check for safety. Consider medical consultation if any acute medical issues arise. Provide the patient individual, group therapy, substance use disorder counseling to give better insight and learn coping skills. Continue follow-up with the patient daily to monitor progress of depression, and alcohol withdrawal. Medications: Continue monitoring the patient for alcohol withdrawal symptoms. Consider medical consult if CIWA >10 Continue Remeron for depression, and encouraged patient for better compliance Continue when necessary medication for severe anxiety and alcohol withdrawal. Discharge patient to OUTPATIENT services upon a stabilization
[2020-05-14] MEDS: MIRTAZAPINE 15 MG TAB PO SCH (22:01)
[2020-05-15] MEDS: THIAMINE 100 MG TAB PO SCH ×2 (10:18→17:28)
[2020-05-15] MEDS: LORazepam 1 MG TAB PO SCH (10:18)
--- NOTE | 2020-05-15 15:16 | P.PN ---
Progress Note - Text Progress Note Date: 05/15/20 Subjective: Patient was seen today as a cross coverage for . The patient was evaluated, chart reviewed, case discussed with the treatment team. Patient reports feeling sleepy and tired today with decreased appetite. Patient has not been going to many groups and other unit activities. As per nursing report, patient took Remeron last night and he continued to take scheduled doses of Ativan. The patient presents very tired, weak and some degree sedated. He reports continues to feel depressed but denies any suicidal thoughts. He denies any severe mood swings, anger, or homicidal ideation. Denies any hallucinations, paranoid thoughts, or delusions. No manic symptoms have been reported or noticed. No reports of severe alcohol withdrawal symptoms. Objective: Mental status examination; Appearance: The patient appears older than stated age, disheveled, poorly gr oomed, below average body built. Gait/posture: Week, slow, Normal arm swinging: No abnormal movements. Attitude and behavior: Not fully engaged, partially cooperative, poor eye contact. Motor activity: Decreased psychomotor activity Speech: Slow Mood: Depressed Affect: Constricted Thought form: Slow thought process Thought content: Non-delusional, denies suicidal thoughts, denies homicidal thoughts, denies intentions or plans. Perception: Denies any auditory or visual hallucinations Attention: No impairment. Orientation: Patient was not fully oriented to time. Insight: Patient has limited insight about his psychiatric disorder. Judgment: Patient has limited judgment about his psychiatric treatment. Assessment: Major depressive disorder recurrent, severe, with psychotic features. Alcohol use disorder, severe Plan: Continue inpatient level of care due to need for further monitoring and stabilization Precautions: Continue 15 minutes check for safety. Consider medical consultation if any acute medical issues arise. Provide the patient individual, group therapy, substance use disorder counseling to give better insight and learn coping skills. Continue follow-up with the patient daily to monitor progress of depression, and alcohol withdrawal. Medications: Continue monitoring the patient for alcohol withdrawal symptoms. Consider medical consult if CIWA >10 Continue Remeron but decrease the dose 7.5 mg for depression. Decrease a scheduled doses of Ativan to 0.5 mg 3 times a day to decrease sedation. Continue when necessary medication for severe anxiety and alcohol withdrawal. Discharge patient to OUTPATIENT services upon a stabilization
[2020-05-15] MEDS: LORazepam 0.5 MG TAB PO SCH ×2 (16:05→21:11)
[2020-05-15] MEDS ORDERED: MAGNESIUM HYDROXIDE 2,400 MG/10 ML CUP PO PRN (16:15)
[2020-05-15] MEDS: NICOTINE 21MG/24HR PATCH TRANSDERM SCH (16:24)
[2020-05-15] MEDS: MIRTAZAPINE 15 MG TAB PO SCH (21:10)
[2020-05-16] MEDS: LORazepam 1 MG TAB PO PRN (01:51)
[2020-05-16] MEDS: THIAMINE 100 MG TAB PO SCH ×2 (09:38→17:20)
[2020-05-16] MEDS: NICOTINE 21MG/24HR PATCH TRANSDERM SCH (09:39)
[2020-05-16] MEDS: LORazepam 0.5 MG TAB PO SCH ×2 (09:39→15:14)
--- NOTE | 2020-05-16 11:04 | P.PN ---
Progress Note - Text Interval history: The patient is found at the [employer] he follows me to an interview room. He reports that his mood is slowly improving. He reports she's been intermittently attending groups. We discussed arranging inpatient chemical dependency treatment but he refuses. He has been compliant with medication. The Remeron was reduced over the weekend as well as the Ativan. CIWA scores reviewed vital signs reviewed. He indicates he is eating. He is concerned about placement and transportation upon discharge. There was some note about him going to a transitional bed at a [facility] is exploring that further. Mental status exam: The patient is a male, he is a disheveled appearance he is dressed in women's clothing. Eye contact is intermittent. Speech is fluent spontaneous nonpressured. He indicates his moods improving. He is reporting no suicidal thoughts here in the hospital today. He reports no homicidal ideation intent or plan. He is endorsing no auditory or visual hallucinations or any specific delusions. He demonstrates no verbal or physical aggressiveness. He demonstrates no involuntary repetitive movements. He is oriented to person place and date. Affect is bland. He has a linear thought process. Plan: The patient will continue on his current medication. We will plan to taper him off of Ativan during the hospitalization. The community mental health liaison will explore his placement options. Vital signs reviewed. He is encouraged to fully participate in the milieu. We will monitor his ability to complete his activities of daily living.
[2020-05-16] MEDS: MIRTAZAPINE 15 MG TAB PO SCH (21:24)
[2020-05-17] MEDS: LORazepam 1 MG TAB PO PRN (00:20)
[2020-05-17] MEDS: THIAMINE 100 MG TAB PO SCH ×2 (10:17→18:34)
[2020-05-17] MEDS: NICOTINE 21MG/24HR PATCH TRANSDERM SCH (10:20)
[2020-05-17] MEDS ORDERED: LORazepam 0.5 MG TAB PO PRN (10:55)
--- NOTE | 2020-05-17 11:01 | P.PN ---
Progress Note - Text Interval history: The patient is found in the hallway he follows me to an interview room. He indicates his mood is down he is depressed. He describes having hopeless thoughts. He states that when he goes home he will get a shovel, dig a hole, and cover himself up. He states that if he was released right now he would walk out into traffic. He expresses concern about housing upon discharge. He's concerned about his belongings. He states he did not sleep well last night he took an Ativan at approximately 4 AM. Mental status exam: The patient is tired appearing but not lethargic. He describes a depressed and hopeless mood he describes suicidal thoughts. He reports no homicidal ideation intent or plan. He is describing no auditory or visual hallucinations or any specific delusions. There is no observed evidence of psychosis. He does demonstrate some circumstantial and tangential thinking this morning. No loose associations or flight of ideas. He demonstrates no verbal or physical aggressiveness. He has a disheveled appearance hygiene and grooming are impaired he is dressed in oversized women's clothing. He has not shaved his hair is not combed he frequently looks down at the floor. Affect is dysphoric. Plan: The patient will continue on his current psychotropic medication. I will change the Ativan to 0.5 up to twice daily as needed. CIWA scores and vital signs reviewed. He is encouraged to participate in the milieu. He is scheduled to have a court date tomorrow for substance use. We will see if he can still participate in that virtually. For safety reasons will continue his psychiatric hospitalization. We will continue to discuss appropriate disposition for him once clinically stabilized.
[2020-05-17] MEDS: MIRTAZAPINE 15 MG TAB PO SCH (21:22)
[2020-05-18] MEDS: NICOTINE 21MG/24HR PATCH TRANSDERM SCH (09:46)
[2020-05-18] MEDS: THIAMINE 100 MG TAB PO SCH ×2 (09:46→16:55)
--- NOTE | 2020-05-18 11:30 | P.PN ---
Progress Note - Text Interval history: The patient is found in the hallway he follows me to an interview room. He indicates his mood is nervous. He is concerned about attending court today for the substance abuse hearing. We discussed the purpose of the hearing and potential outcomes. He reports that suicidal thoughts are less severe but they're still "in the back of my mind". He describes himself as being spontaneous and he could act on them. He indicates he slept last night appetite is improving. He selectively attends groups. He has no questions or concerns regarding medication. Mental status exam: The patient is alert he has a disheveled appearance hygiene is fair he has not shaved. He is dressed in a T-shirt and shorts. He reports his mood is anxious affect is constricted. He reports no acute suicidal thoughts during our session but states "they're in the back of my mind". He reports no homicidal ideation intent or plan he reports no auditory or visual hallucinations endorses no specific delusions. He does not appear hypomanic or manic he demonstrates no symptoms of psychosis. Insight and judgment are limited. He demonstrates no verbal or physical aggressiveness he demonstrates no involuntary repetitive movements. Plan: The patient will continue on his current psychotropic medication. We will await the outcome of his court hearing today. We discussed discharge planning. He will be appropriate for discharge once his acute suicidal ideation consistently subsides. Vital signs reviewed. The plan would be to taper him off of Ativan during the hospitalization.
[2020-05-18] MEDS: MIRTAZAPINE 15 MG TAB PO SCH (21:01)
[2020-05-19] MEDS: THIAMINE 100 MG TAB PO SCH ×2 (09:09→16:44)
[2020-05-19] MEDS: NICOTINE 21MG/24HR PATCH TRANSDERM SCH (09:10)
[2020-05-19 09:19] VITALS: BMI 23.4
--- NOTE | 2020-05-19 12:07 | P.PN ---
Subjective Progress Note Date: 05/19/20 Principal diagnosis: Diagnosis: Major depression recurrent severe Alcohol use disorder severe Subjective: The patient was seen for 45 minute evaluation and follow-up. He constantly brings up problems and when you suggest some things he might do about it he always says "yes but ". He did go to court yesterday and they suggested he consider one program which he didn't like but they would also consider another program it is positive that he said I will willing to go to either one even though I don't like the one is much. He acknowledged that he does need help. When I began to help him put together commitment to discharge plan and how to get some benefit out of the program: He played the card that he could always commit suicide by taking cyanide and that he was a truly hopeless case so we could try to fix them if we want to but there is no point in his doing his part. Objective the patient is alert oriented cooperative and more willing to work with me than yesterday. Response times are reasonable good eye contact he denies it did not look to have severe neurocognitive slowing he was willing to tear up his 3 day notice and signed permission for his medications. Assessment and plan: The patient says that he has taken Remeron "religiously "and that it didn't work that he uses it just for sleep. He is on 7.5 occasionally which is not enough to help with depression but he did not feel that he needed medication for depression. He feels that if he can get help and get over his alcoholism that that we'll deal with his depression. So the plan is to get him into a rehab program and encouraged him to continue to flesh out a plan that he can commit to. So far he says #1 I need to avoid alcoholic peers #2 I need to get a sponsor #3 I need to better go wherever and do whatever it takes. Prognosis is guarded due to his wanting it to be everybody else's job to fix him while he says yes but so we will as a team hammer away at that attitude bring him back to "what is the little you can do start there ". No change in medication at this time Objective - Vital Signs Vital signs: Vital Signs Temp 98.0 F 05/19/20 06:30 Pulse 82 05/19/20 06:30 Resp 17 05/19/20 06:30 BP 138/76 05/19/20 06:30 Pulse Ox 98 05/19/20 06:30 Intake & Output 05/18/20 05/19/20 05/19/20 18:59 06:59 18:59 Weight 68 kg - Labs CBC & Chem 7: 05/13/20 08:51 05/13/20 08:51
[2020-05-19] MEDS: MIRTAZAPINE 15 MG TAB PO SCH (21:07)
--- NOTE | 2020-05-20 08:02 | P.PN ---
Subjective Progress Note Date: 05/20/20 Principal diagnosis: Diagnosis: Major depression recurrent severe Alcohol use disorder severe Subjective: The patient says that he had a visit from [facility]. He is positive that he was told that everybody at [facility] is pulling for him and wants him to do well. He says he is made up his mind as to which program he wants to go to and told the addiction social worker that. He reviewed a time when he was sober for 3 years but points out that he was in [facility] at the time but did allow that maybe there is some hope. Objective the patient does tend to ramble mostly running away from any personal responsibility or statements of hope. So we'll talk about being sober in the [facility] but then jumped to the fact that it's hard to do on his own. He reviewed a time when he was talking to the protective services case worker on the phone and she was just going on and on while he was continuing to drink on the phone. This is common in alcoholics that they almost revel in how bad they are. Mental status: Patient is alert decreased eye contact slow responses he moves slowly he is oriented to person place time and circumstance formal judgment is okay except very negative denies any suicidal ideation or homicidal ideation self-care is minimal terms of taking baths and he only has 1 set of clothes. He slept 6 hours Vital signs temperature is 90.9 heart rate 91 respirations 17 blood pressure 113/67 Denies any significant pain Laboratory tests were run on 710 and basically showed someone who has not been taking good care of their nutrition and health Assessment plan: We are arranging for him to transfer to a rehab program he refuses any medication because he says he has diligently taken them in the past and they have not worked. I doubt that he took them in high enough dose independently enough for them to work. But his point that he has to get the alcohol under control or nothing else will work has some merit. Until the transfer was arranged and continued to emphasize that he needs to move beyond just but to what is little he can do. He admits in the past she has tried to fix himself and failed any fried to have other people fix him and that doesn't w ork that he needs to be both. Objective - Vital Signs Vital signs: Vital Signs Temp 99.0 F 07/17/20 06:27 Pulse 91 05/20/20 06:27 Resp 17 05/20/20 06:27 BP 113/67 05/20/20 06:27 Pulse Ox 98 05/19/20 06:30 Intake & Output 05/19/20 05/20/20 05/20/20 18:59 06:59 18:59 Weight 68 kg - Labs CBC & Chem 7: 05/13/20 08:51 05/13/20 08:51
[2020-05-20] MEDS: NICOTINE 21MG/24HR PATCH TRANSDERM SCH (09:50)
[2020-05-20] MEDS: THIAMINE 100 MG TAB PO SCH ×2 (09:53→16:32)
[2020-05-20] MEDS: MIRTAZAPINE 15 MG TAB PO SCH (19:32)
[2020-05-21] MEDS: THIAMINE 100 MG TAB PO SCH ×2 (09:23→18:09)
[2020-05-21] MEDS: NICOTINE 21MG/24HR PATCH TRANSDERM SCH (09:23)
--- NOTE | 2020-05-21 10:52 | P.PN ---
Progress Note - Text Progress Note Date: 05/21/20 Interval history: Patient is seen in cross coverage today. He reports that his sleep is fluctuating some. He is taking the Remeron. He does talk about going to rehab after discharge at [place]. He also plans on pursuing outpatient treatment. Mental status exam: He is alert and cooperative with the interview. His speech is fluent, not rapid or pressured. His affect overall is restricted. His mood he describes as could be better but doing better than admission. He denies any thoughts of harm to self or others. No evidence of any active psychosis or agitation. His thought processes are organized. Plan: Patient will be maintained on current psych tropic medication regimen. Continue to monitor for any medication side effects and monitor his ongoing response to treatment. We'll continue to provide cross coverage through the weekend.
[2020-05-21] MEDS: MIRTAZAPINE 15 MG TAB PO SCH (20:58)
[2020-05-22] MEDS: THIAMINE 100 MG TAB PO SCH ×2 (08:39→16:49)
[2020-05-22] MEDS: NICOTINE 21MG/24HR PATCH TRANSDERM SCH (08:39)
--- NOTE | 2020-05-22 18:22 | P.PN ---
Progress Note - Text Progress Note Date: 05/22/20 Interval history: Patient is seen in cross coverage today. He was found in the dining room was cooperative with coming to the interview room. He seems to be eating well. He slept pretty well last night. He does still talk about going to [place] after discharge. He did some walking around the unit today. Mental status exam: He is alert and cooperative with the interview. His speech is fluent, not rapid or pressured. Thought processes are organized. His mood he describes is doing better today. He has not verbalize any thoughts of harm to self or others. No evidence of active psychosis or agitation. Plan: Patient will be maintained on current psychotropic medication regimen. Continue to monitor regarding any medication side effects and monitor his ongoing response to treatment.
[2020-05-22] MEDS: MIRTAZAPINE 15 MG TAB PO SCH (21:14)
[2020-05-23] MEDS: NICOTINE 21MG/24HR PATCH TRANSDERM SCH (08:59)
[2020-05-23] MEDS: THIAMINE 100 MG TAB PO SCH ×2 (09:00→17:38)
--- NOTE | 2020-05-23 12:40 | P.PN ---
Subjective Progress Note Date: 05/23/20 Principal diagnosis: Diagnosis: Major depression recurrent severe Alcohol use disorder severe Patient seen and chart reviewed. Subjective: He said that his roommate had kept him up after night that he was tired. He says he is had a couple times over the weekend where suicide made little sense to him. He says he can commit to trying hard in her rehab program and hopefully that will help his depression back off. We talked at length about considering an antidepressant but he was resistant to the idea and felt that that was not the main issue and that the medicines he's tried in the past work. He said there was one medicine that one of his friends said they thought he was doing better. Objective the patient is definitely tired poor eye contact slow response times minimal self-care however is cooperative oriented person place time and circumstances speech is easy to understand and not pressured he is somewhat slow and logical no desire to hurt anybody else and no active suicidality. He has been attending groups and has been appropriate verbal and attentive in them but does not interact much with other peers. Assessment and plan: Basically we are waiting for him to bed go directly to a rehab program I reviewed with him that he had finished the program and within 20 minutes of being dropped off at his house was out seeking alcohol. That at this point we need him to go directly to program and to work hard on taking more responsibility for his sobriety figure out how this time when he is done he doesn't immediately relapse. We will discharge him as soon as an opening comes up to send him home at this time would guarantee relapse and probably a suicidal attempt Objective - Vital Signs Vital signs: Vital Signs Temp 97.9 F 05/23/20 04:15 Pulse 87 05/23/20 04:15 Resp 16 05/23/20 04:15 BP 110/70 05/23/20 04:15 Pulse Ox 96 05/22/20 09:36 - Labs CBC & Chem 7: 05/13/20 08:51 05/13/20 08:51
[2020-05-23] MEDS: MIRTAZAPINE 15 MG TAB PO SCH (21:47)
[2020-05-24 05:30] VITALS: RESP 16
[2020-05-24] MEDS: NICOTINE 21MG/24HR PATCH TRANSDERM SCH (09:11)
[2020-05-24] MEDS: THIAMINE 100 MG TAB PO SCH ×2 (09:11→16:31)
--- NOTE | 2020-05-24 11:28 | P.PN ---
Subjective Progress Note Date: 05/24/20 Principal diagnosis: Diagnosis: Major depression recurrent severe Alcohol use disorder severe Subjective: The patient long list of complaints he said he went to the nurses at 3 in the morning at the desk and wanted to know what the number to the access was so he could call the access and get his transfer to rehab on line because we are taking forever. He had trouble understanding the rationale of the nurses said nobody can be called at 3 in the morning talk to your adult protective caseworker about it tomorrow. He is refusing any increase in medicine although he says he still does not sleep that well Objective patient tends to ramble from one topic to another does not like to answer questions he especially if they are directed at his own personal responsibility. Vital signs temperature 98.9 heart rate 96 respirations 16 blood pressure 110/68 O2 saturation 97. Patient was observed staying out of his room more still looks depressed and takes care of ADLs is compliant with medications tends to be guarded and vague in his discussions. He still has urges come over him where he would go drinking if he was able to he has been attending groups and participating. Lab: Nothing recent since 710 Assessment plan patient is stabilizing off of alcohol but would relapse instantly if discharged so were waiting until we can get him into a program it looks like that will be Saturday. Objective - Vital Signs Vital signs: Vital Signs Temp 98.9 F 05/24/20 05:30 Pulse 96 05/24/20 05:30 Resp 16 05/24/20 05:30 BP 110/68 05/24/20 05:30 Pulse Ox 97 05/24/20 05:30 - Labs CBC & Chem 7: 05/13/20 08:51 05/13/20 08:51
[2020-05-24] MEDS: MIRTAZAPINE 15 MG TAB PO SCH (20:50)
[2020-05-25] MEDS: NICOTINE 21MG/24HR PATCH TRANSDERM SCH (08:05)
[2020-05-25] MEDS: THIAMINE 100 MG TAB PO SCH ×2 (08:05→18:53)
--- NOTE | 2020-05-25 08:55 | P.PN ---
Subjective Progress Note Date: 05/25/20 Principal diagnosis: Diagnosis: Major depression recurrent severe Alcohol use disorder severe Subjective: He says no change except that the suicidal thoughts are somewhat decreased Objective: Vital signs temperature 98.3 heart rate 69 respirations 16 blood pressure 107/65 O2 sat 96. Labs nothing new The patient slept about 5 hours last night. He is oriented to person place time and circumstances cooperative but withdrawn interacts minimally and only when approached whether with staff or peers but does deny any recent suicidal or homicidal thoughts. He has been going to groups and attends a full group speaks up but is concrete especially resists any ideas on what he can do to help himself. He is alert good appetite eating his breakfast when I went to see him. self-c are remains minimal. 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 He remains a danger to himself and others due to his fluctuant moods were often he feels suicidal and often he wants go back drinking as a step toward suicide. Objective - Vital Signs Vital signs: Vital Signs Temp 98.3 F 05/25/20 06:42 Pulse 69 05/25/20 06:42 Resp 16 05/25/20 06:42 BP 107/65 05/25/20 06:42 Pulse Ox 96 05/25/20 06:42 - Labs CBC & Chem 7: 05/13/20 08:51 05/13/20 08:51
[2020-05-25] MEDS: MIRTAZAPINE 15 MG TAB PO SCH (18:52)
[2020-05-26 03:58] VITALS: BP 115/62; PULSE 63
[2020-05-26] MEDS: NICOTINE 21MG/24HR PATCH TRANSDERM SCH (09:03)
[2020-05-26] MEDS: THIAMINE 100 MG TAB PO SCH ×2 (09:03→18:57)
--- NOTE | 2020-05-26 09:21 | P.PN ---
Subjective Progress Note Date: 05/26/20 Principal diagnosis: Diagnosis: Major depression recurrent severe Alcohol use disorder severe Subjective: The patient was seen and when asked what he had gotten out of his stay in the hospital he was somewhat vague and then came up with "more peace of mind "and asked him what he was planning to do after discharge to increase the chance that he get back to sobriety. He does report a period of 3 years consecutive sobriety in the past. He said something vague like "I just have to settle into the next step before I can settle down. When I told him that he wasn't really answering my question of what could he do to do better he became defensive and says yes I have. So little hard for me to tell much of this is cognitive impairment much of it is just not wanting to do his part but he clearly does not understand what it will take for him to do better and what his part and that is. However he denied any suicidal or homicidal ideas and denies any psychotic symptoms. He says been a couple of days since he felt suicidal. Objective: Patient is oriented to person place time and circumstances he most slowly eye contact is somewhat improved is vague and defensive himself by finding fault. For example he said he had a question for me but have forgotten what it wants. When I suggested that he come in 5 me later this morning if he remembered the question, he said "why never see you around her always seeing other patients "I pointed out that I and every session with him to see if there is something else he wants to talk about and working hard to try to draw him out and that he needs to write down his questions as we are all getting older and have trouble remembering area [place] knowledge and memory problem but then tried to say that he didn't need to write things down. The patient went 80 group stayed for the multimedia journalist was verbal initiates with peers paid good attention cooperative spontaneous. So the patient is capable of doing his part and I think some of the vagueness is just trying to avoid responsibility although he would be capable. Vital signs: Temperature 98.7 heart rate 63 respirations 16 blood pressure 115/62 Assessment plan I believe the patient is less depressed less suicidal and slightly more committed to his future he just would like a future that would come without him having to do his part. Hopefully they can help him with that in his rehab program. The plan is to discharge him tomorrow morning when he has a ride to get to the program safely. The patient elected not to alter his medications. Objective - Vital Signs Vital signs: Vital Signs Temp 98.7 F 05/26/20 03:58 Pulse 63 05/26/20 03:58 Resp 16 05/26/20 03:58 BP 115/62 05/26/20 03:58 Pulse Ox 96 05/25/20 06:42 - Labs CBC & Chem 7: 05/13/20 08:51 05/13/20 08:51
[2020-05-26 19:08] VITALS: TEMP 98.7
[2020-05-26] MEDS ORDERED: MIRTAZAPINE 15 MG TAB PO SCH (21:00)
--- NOTE | 2020-05-27 08:12 | P.DS ---
Providers Date of admission: 05/12/20 13:22 Expected date of discharge: 05/27/20 Attending physician: Beverly Griffin MD Consults: 05/12/20 15:48 Consult Physician Routine Consulting Provider: Deshaun Velazquez Consult Reason/Comments: H&P Do you want consulting provider notified?: Yes Primary care physician: Deshaun Velazquez Hospital Course: Hospital course patient came in on 78 is a 60-year-old man came in for suicidal ideation he is "well known to the emergency department "coming infrequently with suicidal ideas saying he wanted to walk out into traffic. He denied any psychotic symptoms no homicidal ideas He had a physical exam which was showing no acute problems although his labs clearly show the results of poor nutrition and constant alcohol abuse. Medications: The patient was on Remeron at low dose which he uses every night mostly to try to help him sleep he did not feel that this needed to be increased but felt that he just needed to get back into a alcohol rehab program. I did increase his Remeron to 15 at the end both to help with sleep and with his depression The patient did go to some groups and classes and attended the whole classes and groups and participated was compliant but rather vague and very thing revolves around how miserable he is rather than what can he do about it. Mental status exam: The patient is alert with poor eye contact minimal self-care full response times flat affect no tearfulness noted aggression no signs of psychosis. However every time I ask him what he is going to do so that this time around he gets help, he simply goes back to how the last 2 times he was in rehab he relapsed within minutes of discharge. He seems to want to say I can't help myself you guys will have to fix me magically. If you made any suggestion that he seemed be doing somewhat better he would say well I've got my plan I can just take cyanide the last 3 days before discharge she was dropping these allusions to I don't have to do anything because I can just kill myself. And denies suicidal ideas at this time however he is insightful enough to know that he needs to be supervised as he transitions from this program to the next or he will relapse on the way from here to there if he had a day or 2 in between. He is oriented to person place time and circumstance. There is some question as to the degree of cognitive damage he has done to his years of alcohol which is probably significant I think a lot of it is he just doesn't want to think and take personal responsibility. Diagnosis: major depression recurrent severe in partial remission Alcohol use disorder severe Prognosis guarded Plan is to transfer him to a rehab program today Procedures: No procedures done, when he came in on 710 he had basic labs drawn including hematology and chemistry his sodium chloride was low RBC was low at 3.67 and should be at least 4.3 bilirubin elevated AST elevated ALT elevated cholesterol was high his urine toxicology was negative urinalysis was negative of problems is felt the most of these things were due to poor nutrition and constant alcohol use. Plan - Discharge Summary Discharge Rx Participant: No New Discharge Prescriptions: New Mirtazapine [Remeron] 15 mg PO HS #30 tab Discharge Medication List Mirtazapine [Remeron] 15 mg PO HS #30 tab 05/26/20 [Rx] Follow up Appointment(s)/Referral(s): [facility] [Outside] - 05/27/20 10:15 am Deshaun Velazquez MD [Primary Care Provider] - 1-2 days Activity/Diet/Wound Care/Special Instructions: Activity and diet as tolerated. Avoid the use of street drugs and alcohol. Take all medications as prescribed. When you are in need of refills on your medications please contact your medical provider and/or outpatient psychiatrist to have this done. Please go to scheduled outpatient appointment for aftercare treatment. If symptoms return or become worse, call the crisis line at and/or go to the nearest emergency room for evaluation
[2020-05-27] MEDS: THIAMINE 100 MG TAB PO SCH (08:22)
[2020-05-27] MEDS: NICOTINE 21MG/24HR PATCH TRANSDERM SCH (08:22)
== END 2020-05-27 09:00 | DRG 885 ==
LOC: EC 23:03 → 3MHU 05-12 13:22
PROVIDERS: ADMIT Psychiatry & Neurology Psychiatry; ATTEND Psychiatry & Neurology Psychiatry
DX: F33.2 Major depressive disorder, recurrent severe without psychotic features (principal); R45.851 Suicidal ideations; F10.230 Alcohol dependence with withdrawal, uncomplicated; G40.909 Epilepsy, unspecified, not intractable, without status epilepticus; Z91.14 Patient's other noncompliance with medication regimen; Z91.19 Patient's noncompliance with other medical treatment and regimen; F10.220 Alcohol dependence with intoxication, uncomplicated; F17.200 Nicotine dependence, unspecified, uncomplicated; F41.9 Anxiety disorder, unspecified; R45.87 Impulsiveness; R41.89 Other symptoms and signs involving cognitive functions and awareness; F64.1 Dual role transvestism; Z79.899 Other long term (current) drug therapy; Z91.5 Personal history of self-harm; Z88.8 Allergy status to other drugs, medicaments and biological substances
CPT/HCPCS: 80053; 80061; 80306; 81001; 82075; 83036; 84443; 85025; 96372; 99285

== ENCOUNTER 2020-08-21 21:23 | Emergency (ER) | payer MEDICARE, OTHER ==
[2020-08-21 21:33] VITALS: BP 120/79; PULSE 92; RESP 16; TEMP 97.9
--- NOTE | 2020-08-21 22:35 | ED ---
Psych HPI - General Chief Complaint: Psychiatric Symptoms Stated Complaint: Mental Health Time Seen by Provider: 08/21/20 22:03 Source: patient, police Mode of arrival: ambulatory - History of Present Illness Initial Comments: Jackson is a 60-year-old male very well-known to our psychiatric service for frequent visits. Patient's currently living in a three-quarter house. Today p albertina were called due to patient reporting feeling suicidal. Upon arrival patient reports he's just been feeling down in the dumps for about a week and he feels like people at his home were not very nice to him sometimes. He states he's been compliant with all of his home medications and that he is been going to his regularly scheduled therapy. When asked if he feels as though he needs to be inpatient at this time patient states no, he feels down but doesn't have any specific suicidal plan. No thoughts of homicide. No delusions or psychosis. Patient does express pride that he has been sober for 3 months now and is a recovering alcoholic. - Related Data Previous Rx's Medication Instructions Recorded Mirtazapine [Remeron] 15 mg PO HS #30 tab 05/26/20 Allergies Allergy/AdvReac Type Severity Reaction Status Date / Time ziprasidone HCl [From Geodon] AdvReac Unknown Pt states Verified 08/21/20 21:33 geodon over sedates him. ziprasidone mesylate AdvReac Pt. states Verified 08/21/20 21:33 [From Geodon] Geodon makes him excessively sedated Review of Systems ROS Statement: Those systems with pertinent positive or pertinent negative responses have been documented in the HPI. ROS Other: All systems not noted in ROS Statement are negative. Past Medical History Past Medical History: Seizure Disorder Additional Past Medical History / Comment(s): alcohol abuse History of Any Multi-Drug Resistant Organisms: None Reported Past Surgical History: No Surgical Hx Reported Additional Past Surgical History / Comment(s): eyelid sx Past Anesthesia/Blood Transfusion Reactions: No Reported Reaction Past Psychological History: Anxiety, Bipolar Smoking Status: Current every day smoker Past Alcohol Use History: None Reported Past Drug Use History: None Reported - Past Family History Father Family Medical History: No Reported History Mother Family Medical History: Unable to Obtain Additional Family Medical History / Comment(s): Pt did not want to disclose General Exam - General Exam Comments Initial Comments: Physical Exam GENERAL: Patient is well-developed and well-nourished. Patient is nontoxic and well-hydrated and is in no distress. HENT: Normocephalic, Atraumatic. EYES: Chronic conjunctivitis of left eye PERRL, EOMI PULMONARY: Unlabored respirations. CARDIOVASCULAR: Warm and well perfused extremities ABDOMEN: Non-distended SKIN: No rashes or bruising : Deferred NEUROLOGIC: Alert and oriented Normal speech MUSCULOSKELETAL: Moving all extremities with no apparent injury PSYCHIATRIC: Depressed, no SI/HI, no delusions or psychosis Limitations: no limitations Course Vital Signs 08/21/20 21:31 Temperature 97.9 F Pulse Rate 92 Respiratory 16 Rate Blood Pressure 120/79 O2 Sat by Pulse 99 Oximetry Medical Decision Making - Medical Decision Making The patient was seen and evaluated history is obtained from the patient Patient is depressed with no suicidal or homicidal plans, he is awake alert and oriented he has established outpatient psychiatric care. He has made some passive suicidal statements and from the caregivers at his record her house and was told he had to be evaluated. She was seen and evaluated by EPS nurse, patient able to contract for safety no indication for hospital admission at this time. Patient be discharged back to his record her house. Has a safety plan. Has outpatient follow-up. Nose to return if he has any recurrent thoughts of self-harm or suicide. Disposition Clinical Impression: Depression Disposition: HOME SELF-CARE Condition: Stable Is patient prescribed a controlled substance at d/c from ED?: No Referrals: Deshaun Velazquez MD [Primary Care Provider] - 1-2 days
== END 2020-08-21 23:12 | disposition home or self-care (01) ==
LOC: EC 21:23
DX: F32.9 Major depressive disorder, single episode, unspecified (principal); F17.200 Nicotine dependence, unspecified, uncomplicated; Z88.8 Allergy status to other drugs, medicaments and biological substances
CPT/HCPCS: 82075; 99285